=== PATIENT | male | born 1990 | race Caucasian/White ===

== ENCOUNTER 2022-09-06 21:27 | Emergency (ER) | payer MEDICAID, SELFPAY ==
[2022-09-06 22:09] VITALS: BP 106/88; PULSE 88; RESP 16; TEMP 37.5; O2SAT 100; BMI 21.6
--- NOTE | 2022-09-06 22:33 | XR_ITS ---
[address] [address] Patient Name: TC TRUJILLO MRN: [id number] date: 1990 Sex: M Assigned Patient Location: ER Current Patient Location: ER Accession/Order Number: [id number] Exam Date: 09/06/2022 23:15 Report Date: 09/06/2022 23:38 At the request of: GERMANIA BOYKIN Procedure: XR knee INDY 3V EXAM: XR knee INDY 3V HISTORY: Chronic bilateral knee pain. No injury. COMPARISON: None. TECHNIQUE: AP, oblique and lateral radiographs of both knees. FINDINGS: RIGHT KNEE: No acute osseous, articular or soft tissue abnormality is seen. A 1.5 cm ovoid lucency in the subchondral lateral right femoral condyle favors a geode. Reticular sclerotic densities in the distal femoral metaphysis and proximal tibial metaphysis are nonspecific but appear nonaggressive. Joint spaces are maintained. LEFT KNEE: No acute osseous, articular or soft tissue abnormality is seen. There is a lobular 1.9 cm subchondral lucency in the lateral femoral condyle with mild surrounding sclerosis, favoring a geode. Nonspecific reticular sclerotic densities are seen in the distal femoral metaphysis. No additional focal bony lesions are seen. Joint spaces are maintained. IMPRESSION: 1. No acute right knee findings. Chronic changes are described above. MRI could further evaluate. 2. No acute left knee findings. Chronic changes are described above. MRI could further evaluate. Electronically authenticated by: PRIMITIVO FERNANDES Date: 09/06/2022 23:38
[2022-09-06 23:01] LABS: Basophils Absolute Auto 0.1 10^3/uL (0.0-0.1); Basophils Percent Auto 0.6 % (0.2-2.0); Eosinophils Absolute Auto 0.2 10^3/uL (0.0-0.7); Hematocrit 41.5 % (42.0-54.0); Immature Granulocytes Abs Auto 0.02 10^3/uL (0.00-0.03); Immature Granulocytes Pct Auto 0.2 % (0.0-0.5); Lymphocytes Absolute Auto 1.7 10^3/uL (1.2-3.8); Lymphocytes Percent Auto 20.4 % (20.5-60.0); Mean Corpuscular HGB Conc 33.7 g/dL (29.9-35.2); Mean Corpuscular Hemoglobin 28.9 pg (25.9-34.0); Mean Corpuscular Volume 85.6 fL (80.0-94.0); Mean Platelet Volume 8.6 fL (9.5-13.5); Monocytes Absolute Auto 0.7 10^3/uL (0.3-0.8); Monocytes Percent Auto 8.8 % (1.7-12.0); Neutrophils Absolute Auto 5.8 10^3/uL (1.4-6.5); Platelet Count 208 10^3/uL (150-450); Red Blood Count 4.85 10^6/uL (4.70-6.10); Red Cell Distribution Width 13.1 % (11.0-15.0); White Blood Count 8.5 10^3/uL (4.0-11.0)
[2022-09-06 23:17] LABS: Alanine Aminotransferase 31 U/L (16-63); Albumin Globulin Ratio 1.3; Albumin Level 3.9 g/dL (3.4-5.0); Alkaline Phosphatase 102 U/L (46-116); Anion Gap 8.9; Aspartate Amino Transferase 21 U/L (15-37); BUN Creatinine Ratio 12.1; Bilirubin Total 0.4 mg/dL (0.2-1.0); C Reactive Protein 2.3 mg/dL (<=1.0); Calcium 8.6 mg/dL (8.5-10.1); Chloride 103 mmol/L (98-107); Estimated GFR (African America >60 (>=60); Estimated GFR (Non-African Ame >60 (>=60); Globulin 3.1 g/dL; Glucose 101 mg/dL (74-106); Potassium 3.9 mmol/L (3.5-5.1); Sodium 138 mmol/L (136-145)
[2022-09-06 23:21] LABS: Erythrocyte Sedimentation Rate 1 mm/hr (<=15)
[2022-09-06] MEDS: KETOROLAC TROMETHAMINE 30 MG/ML VIAL IVP (23:53)
[2022-09-06] MEDS: METHYLPREDNISOLONE SOD SUCC PF 125 MG/2 ML VIAL IVP (23:54)
[2022-09-06] MEDS: 0.9 % SODIUM CHLORIDE 1,000 ML 999 ML IV (23:54)
--- NOTE | 2022-09-07 00:26 | ED_ITS ---
HPI - General Adult General Chief complaint: Extremity Injury, Lower Stated complaint: LOWER EXTREMITY PAIN Time Seen by Provider: 09/06/22 21:49 Source: patient Mode of arrival: walk-in History of Present Illness HPI narrative: patient developed bilateral knee pain this morning and the right knee has become slightly swollen. he denied any injury. he also complained of feeling achy and noted some blood in his urine one day ago - subsequent urinations were normal. His prior medical history is notable for septic emboli and strep meningitis back in 2017 that caused him to have fevers, achiness and headache with vomiting. He used to use drugs IV. Theyn were uncertain whether the infection was due to dental etiology or from IVDU but I did not see anywhere that he had definitive determination of etiology. Related Data Previous Rx's Medication Instructions Recorded nabumetone 750 mg tablet 750 mg PO BID PRN pain #14 tabs 09/07/22 Allergies Allergy/AdvReac Type Severity Reaction Status Date / Time vancomycin AdvReac Severe Verified 09/06/22 22:18 PFSH PFS Social History Smoking status: Current every day smoker Exam Narrative Exam Narrative: Nurses notes and vital signs reviewed and patient is not hypoxic. afebrile General: Well-appearing and in no apparent distress. Skin: Warm, dry, no pallor noted. No rash. Head: Normocephalic, atraumatic. Neck: moves his head well and without sign of meningismus. Eye: Pupils are equal, round and EOMI. No scleral icterus. Ears, Nose, Mouth, and Throat: Oral mucosa is moist Cardiovascular: Regular Rate and Rhythm without murmur, gallop or rub. Respiratory: No accessory muscle use or respiratory distress. Lungs are clear to auscultation, no wheezing, rales or rhonchi Back: No CVA tenderness Musculoskeletal: slight swelling of the right knee with tenderness to both knees on palpation and with active and passive range of motion. He has popliteal and calf tenderness without any associated erythema or swelling of the lower extremity. On the right knee. both lower extremities with normal ROM. no signs of cellulitis. GI: Abdomen is soft, non-distended. Normal bowel sounds. No masses appreciated. No tenderness to palpation. No rebound, guarding, or rigidity noted. Neurological: A&O x4. No cranial nerve dysfunction observed. No truncal ataxia. Moves all extremities. Sensation intact. Psychiatric: Cooperative and interactive. Normal mood and affect. Constitutional Vital Signs - 24 hr 09/06/22 22:09 Temperature 99.5 F Pulse Rate [Monitor Left] 88 Respiratory Rate 16 Blood Pressure [Left Arm] 106/88 H Pulse Oximetry 100 Oxygen Delivery Method Room Air Course Vital Signs Vital signs: Vital Signs Temperature 99.5 F 09/06/22 22:09 Pulse Rate 88 09/06/22 22:09 Respiratory Rate 16 09/06/22 22:09 Blood Pressure 106/88 H 09/06/22 22:09 Pulse Oximetry 100 09/06/22 22:09 Oxygen Delivery Method Room Air 09/06/22 22:09 Temperature 99.5 F 09/06/22 22:09 Pulse Rate 88 09/06/22 22:09 Respiratory Rate 16 09/06/22 22:09 Blood Pressure 106/88 H 09/06/22 22:09 Pulse Oximetry 100 09/06/22 22:09 Oxygen Delivery Method Room Air 09/06/22 22:09 Medical Decision Making MDM Narrative Medical decision making narrative: I reviewed the patient's prior medical records - see below. on this emergency department visit the patient's CBC is unremarkable. His slight elevation of his CRP. Metabolic profile is normal. sedimentation rate is normal.\ No acute abnormalities identified on x-rays of both knees. Results discussed with the patient. I explained that due to his prior history he should have a short threshold to return to the ED. He felt better after ED treatment and was discharged home with prescription for Relafen. Medical Records Medical records reviewed: Yes I reviewed the patient's medical records Medical records narrative: some of this is in the HPI. The patient was seen a few times for fever and achiness for subsequently developing headache and nausea. CT of the head was then obtained and he was found to have embolization lesions which subsequently were determined to be due to streptococcal infection. He was transferred to tertiary care facility, received IV antibiotics but had a complicated postdischarge course with subsequent development of pulmonary emboli and other infectious etiologies. I do not see anywhere the patient is on have any immunocompromisation. He does have a history of diabetes substance abuse. It was thought that the etiology of the meningismus may have been secondary to dental issue although nothing definitive was determined. Lab Data Lab results reviewed: Yes I reviewed the patient's lab results Labs: Lab Results 09/06/22 Range/Units 22:54 WBC 8.5 (4.0-11.0) 10^3/uL RBC 4.85 (4.70-6.10) 10^6/uL Hgb 14.0 (14.0-18.0) g/dL Hct 41.5 L (42.0-54.0) % MCV 85.6 (80.0-94.0) fL MCH 28.9 (25.9-34.0) pg MCHC 33.7 (29.9-35.2) g/dL RDW 13.1 (11.0-15.0) % Plt Count 208 (150-450) 10^3/uL MPV 8.6 L (9.5-13.5) fL Neut % (Auto) 68.0 (43.0-75.0) % Lymph % (Auto) 20.4 L (20.5-60.0) % [place] % (Auto) 8.8 (1.7-12.0) % Eos % (Auto) 2.0 (0.9-7.0) % Baso % (Auto) 0.6 (0.2-2.0) % Neut # (Auto) 5.8 (1.4-6.5) 10^3/uL Lymph # (Auto) 1.7 (1.2-3.8) 10^3/uL [place] # (Auto) 0.7 (0.3-0.8) 10^3/uL Eos # (Auto) 0.2 (0.0-0.7) 10^3/uL Baso # (Auto) 0.1 (0.0-0.1) 10^3/uL Abs Immat Gran (auto) 0.02 (0.00-0.03) 10^3/uL Imm/Tot Granulo (auto) 0.2 (0.0-0.5) % ESR 1 (<=15) mm/hr Sodium 138 (136-145) mmol/L Potassium 3.9 (3.5-5.1) mmol/L Chloride 103 (98-107) mmol/L Carbon Dioxide 30.0 (21.0-32.0) mmol/L Anion Gap 8.9 BUN 15.0 (7.0-18.0) mg/dL Creatinine 1.24 (0.70-1.30) mg/dL Est GFR ( Amer) >60 (>=60) Est GFR (Non-Af Amer) >60 (>=60) BUN/Creatinine Ratio 12.1 Glucose 101 (74-106) mg/dL Calcium 8.6 (8.5-10.1) mg/dL Total Bilirubin 0.4 (0.2-1.0) mg/dL AST 21 (15-37) U/L ALT 31 (16-63) U/L Alkaline Phosphatase 102 (46-116) U/L C-Reactive Protein 2.3 H (<=1.0) mg/dL Total Protein 7.0 (6.4-8.2) g/dL Albumin 3.9 (3.4-5.0) g/dL Globulin 3.1 g/dL Albumin/Globulin Ratio 1.3 Imaging Data xr bilat knees: Radiologist's impression: Patient Name: TC TRUJILLO MRN: [facility]:[id number] date: 1990 Sex: M Assigned Patient Location: ER Current Patient Location: Accession/Order Number: [id number] Exam Date: 09/06/2022 23:15 Report Date: 09/06/2022 23:38 At the request of: GERMANIA BOYKIN Procedure: XR knee INDY 3V EXAM: XR knee INDY 3V HISTORY: Chronic bilateral knee pain. No injury. COMPARISON: None. TECHNIQUE: AP, oblique and lateral radiographs of both knees. FINDINGS: RIGHT KNEE: No acute osseous, articular or soft tissue abnormality is seen. A 1.5 cm ovoid lucency in the subchondral lateral right femoral condyle favors a geode. Reticular sclerotic densities in the distal femoral metaphysis and proximal tibial metaphysis are nonspecific but appear nonaggressive. Joint spaces are maintained. LEFT KNEE: No acute osseous, articular or soft tissue abnormality is seen. There is a lobular 1.9 cm subchondral lucency in the lateral femoral condyle with mild surrounding sclerosis, favoring a geode. Nonspecific reticular sclerotic densities are seen in the distal femoral metaphysis. No additional focal bony lesions are seen. Joint spaces are maintained. IMPRESSION: 1. No acute right knee findings. Chronic changes are described above. MRI could further evaluate. 2. No acute left knee findings. Chronic changes are described above. MRI could further evaluate. Electronically authenticated by: PRIMITIVO Matthews: 09/06/2022 23:38 Discharge Plan Discharge Chief Complaint: Extremity Injury, Lower Clinical Impression: Polyarthralgia Patient Disposition: Home, Self-Care Time of Disposition Decision: 00:40 Prescriptions / Home Meds: New nabumetone 750 mg tablet 750 mg PO BID PRN (Reason: pain) Qty: 14 0RF Instructions: Swollen Knee Joint (ED), Arthralgia (ED) Stand Alone Forms: Portal Instructions Referrals: Physician,Non-Staff, MD [Primary Care Provider] - 1 week
== END 2022-09-07 00:52 | disposition home or self-care (01) ==
PROVIDERS: Emergency Provider Emergency Medicine
DX: M25.50 Pain in unspecified joint (principal); F17.210 Nicotine dependence, cigarettes, uncomplicated
CPT/HCPCS: 36415; 73562; 80053; 80307; 85025; 85652; 86140; 96374; 96375; 99284; J2930

== ENCOUNTER 2023-06-06 15:40 | Emergency (ER) | payer OTHER, SELFPAY ==
[2023-06-06 15:48] VITALS: BP 107/72; PULSE 92; TEMP 37.3; O2SAT 99; BMI 21.4
[2023-06-06 16:14] LABS: Influenza Virus A Antigen Negative; Influenza Virus B Antigen Negative; Internal Control Within Normal Limits; SARS-CoV-2 Ag NEGATIVE (NEGATIVE); Strep A Antigen Screen Negative
--- NOTE | 2023-06-06 16:14 | ED_ITS ---
HPI - URI/Sore Throat General Chief Complaint: Upper Respiratory Infection Stated Complaint: Upper Respiratory Infection Time Seen by Provider: 06/06/23 15:53 Source: patient Limitations: no limitations History of Present Illness HPI Narrative: 32-year-old male presents to the emergency department with complaint of sore throat, body aches. Had not been feeling well for about 4-5 days, started feeling better yesterday, but woke up with recurrence of symptoms and came in for further evaluation. + Runny nose, congestion, slight cough, slight pleuritic chest discomfort, slight headache since this morning. Denies ear pain, shortness of breath. Denies back pain, leg pain. Denies cigarette smoking, but states that he does vape. Quality: As above Severity: Moderate Timing: As above, constant Context: Normal setting and activity Modifying factors: None Associated symptoms: As above Related Data Previous Rx's ?Medication ?Instructions ?Recorded amoxicillin 875 mg-potassium 1 tab PO BID 10 days #20 tabs 06/06/23 clavulanate 125 mg tablet Allergies Allergy/AdvReac Type Severity Reaction Status Date / Time vancomycin AdvReac Severe Verified 09/06/22 22:18 Review of Systems ROS Narrative Constitutional: +fatigue. Denies fever, chills HENT: + congestion, rhinorrhea, sore throat. Denies ear pain Eyes: Denies discharge, eye redness Respiratory: + slight cough. Denies shortness of breath Cardiovascular: + slight pleuritic chest discomfort. Denies palpitations PFSH PFSH Social History Smoking status: Current every day smoker Exam Narrative Exam Narrative: Vital signs noted Nurses notes reviewed CONST:? Nontoxic, well appearing, well nourished, in no distress.? HENT: normocephalic, atraumatic.? Normal hearing.? Normal appearing ext ears, canals, TM's.? No nasal discharge.? Moist mucous membranes, + increased oropharyngeal erythema. No edema, exudate.? No trismus, maintaining own secretions. EYES: No injection, discharge NECK: supple, no lymphadenopathy. Able to move head from side to side while looking in ears. Peripheral rigidity. No meningismus CV: normal rate, regular rhythm, no murmur RESP: normal effort, speaking in complete sentences. Lung sounds clear and equal bilat.? No wheezes, rales, rhonchi? NEURO: A&Ox3, steady gait, normal station SKIN: intact, warm, dry, no pallor PSYCHIATRIC: normal mood, affect Constitutional Vital Signs, click to edit/add: Last Vital Signs Temp 99.2 F 06/06/23 16:28 Pulse 92 H 06/06/23 15:48 Resp 18 06/06/23 15:48 BP 107/72 06/06/23 15:48 Pulse Ox 99 06/06/23 15:48 O2 Del Method Room Air 06/06/23 15:48 Course Reevaluation(s) Reevaluation #1: On reevaluation, patient feeling very nauseous right now. Headache better. Will order Zofran and reassess. Time: 17:29 Reevaluation #2: +improved, feeling better. Drinking Gatorade. Discussed with patient results, plan, and disposition. He is agreeable with plan. Time: 18:29 Vital Signs Vital signs: Vital Signs Temperature 99.2 F 06/06/23 15:48 Pulse Rate 92 H 06/06/23 15:48 Respiratory Rate 18 06/06/23 15:48 Blood Pressure 107/72 06/06/23 15:48 Pulse Oximetry 99 06/06/23 15:48 Oxygen Delivery Method Room Air 06/06/23 15:48 Temperature 99.2 F 06/06/23 16:28 Pulse Rate 92 H 06/06/23 15:48 Respiratory Rate 18 06/06/23 15:48 Blood Pressure 107/72 06/06/23 15:48 Pulse Oximetry 99 06/06/23 15:48 Oxygen Delivery Method Room Air 06/06/23 15:48 MDM - URI/Sore Throat MDM Narrative Medical decision making narrative: This is a pleasant 32-year-old male presents to the emergency department with several day history of sore throat, body aches, cough, general malaise. States history of brain surgery in the past that from strep infection. Denies neck stiffness, back pain, leg pain, stiff neck. On arrival, he febrile, vital signs are stable. On exam, nontoxic, somewhat ill-appearing in no distress. There is increased posterior oropharyngeal erythema. Ears are clear. No nuchal rigidity. No tenderness meningismus. He is alert and oriented x 3. No evidence of confusion. Heart regular rate and rhythm. Lung sounds clear and equal bilaterally. COVID, influenza, strep screens were all negative. Symptoms treated with improvement during ED course consisting of Motrin, Tylenol and Zofran. Upper respiratory infection favored based on history and physical exam COVID, influenza, RSV less likely based on screening Strep pharyngitis less likely based on screening Pneumonia less likely based on patient not being hypoxic, not demonstrating adventitious lung sounds, and being afebrile. Baterial Meningitis less likely based on patient not having headache, being afebrile, no meningismus, no confusion displayed. He has had signs and symptoms for greater than 5 days. Disposition ? The patient was discharged. Plan: Patient will be discharged to home. Condition at time of disposition: stable and improved Patient on Augmentin due to infection history. Prior chart reviewed (ER 09/10/19). Patient with, History of prior brain lesion infection thought to be due to strep. Advised to follow up with primary provider. Advised to return for any worsening and/or development of new, concerning signs or symptoms PLEASE NOTE: Portions of the medical record may have been produced using electronic radiology transcriptionist and may contain errors with respect to translation of words which may not have been identified prior to finalization of the chart. Lab Data Labs: Lab Results 06/06/23 Range/Units 15:51 Influenza Type A Ag Negative Influenza Type B Ag Negative SARS-CoV-2 Ag (CV2AG) Negative (NEGATIVE) Streptococcus Screen Negative Discharge Plan Discharge Stand Alone Forms: Portal Instructions Chief Complaint: Upper Respiratory Infection Clinical Impression: Body aches Upper respiratory infection Qualifiers: URI type: unspecified URI Qualified Code(s): J06.9 - Acute upper respiratory infection, unspecified Pharyngitis Qualifiers: Pharyngitis/tonsillitis etiology: unspecified etiology Qualified Code(s): J02.9 - Acute pharyngitis, unspecified Patient Disposition: Home, Self-Care Time of Disposition Decision: 18:27 Condition: Good Mode of Transportation: Private Vehicle Prescriptions / Home Meds: New amoxicillin-pot clavulanate 875-125 mg tablet 1 tab PO BID 10 Days Qty: 20 0RF Print Language: Moroccan Instructions: Pharyngitis (ED), Upper Respiratory Infection (ED) Referrals: Negrito Luu MD [Physician] - 1 week Discharge Date/Time: 06/06/23 18:38
[2023-06-06 16:27] VITALS: TEMP 37.3
[2023-06-06] MEDS: IBUPROFEN 600 MG TABLET PO (16:27)
[2023-06-06 16:28] VITALS: TEMP 37.3
[2023-06-06] MEDS: ACETAMINOPHEN 325 MG TABLET 975 MG PO (16:28)
[2023-06-06] MEDS: ONDANSETRON 4 MG RAPDIS TABLET SL (17:40)
== END 2023-06-06 18:38 | disposition home or self-care (01) ==
PROVIDERS: Emergency Provider Emergency Medicine
DX: J02.9 Acute pharyngitis, unspecified (principal); J06.9 Acute upper respiratory infection, unspecified; F17.290 Nicotine dependence, other tobacco product, uncomplicated; F17.210 Nicotine dependence, cigarettes, uncomplicated; Z20.822 Contact with and (suspected) exposure to COVID-19
CPT/HCPCS: 87070; 87804; 87811; 87880; 99285

== ENCOUNTER 2023-06-16 07:07 | Emergency (ER) | payer OTHER, SELFPAY ==
[2023-06-16 07:11] VITALS: BP 118/89; PULSE 114; TEMP 36.6; O2SAT 95; BMI 21.4
--- NOTE | 2023-06-16 07:35 | CT_ITS ---
The [address] [address] Patient Name: TC TRUJILLO MRN: [facility]:[id number] date: 1990 Sex: M Assigned Patient Location: ER Current Patient Location: ER Accession/Order Number: [id number] Exam Date: 06/16/2023 08:12 Report Date: 06/16/2023 08:41 At the request of: SAMY FRENCH Procedure: CT head/brain wo con EXAM: CT head/brain wo con HISTORY: TIERNEY COMPARISON: Comparison made to head CT dated 09/10/[address] head dated 01/08/2017. TECHNIQUE: Contiguous transaxial images were obtained from skull base to vertex without administration of intravenous contrast. Dose reduction: mA and/or kV are were adjusted by automated exposure control software based upon patients height and weight. FINDINGS: There is no focal scalp soft tissue swelling or acute calvarial fracture. The visualized globes and orbits are grossly normal. There is mild paranasal sinus and nasal mucosal thickening. There are no paranasal sinus air-fluid levels. Bilateral mastoid air cells are clear. There are postsurgical findings of prior left craniotomy. There is a prominent sulcus versus small focus of encephalomalacia subjacent to the left-sided craniotomy. The ventricles and sulci are normal and symmetric bilaterally. There are tiny hypoattenuating foci at the caudal basal ganglia, likely tiny old lacunar infarcts, prominent perivascular spaces, or choroidal fissure cysts. There is a questionable subtle small hypoattenuating focus within the left frontal subcortical white matter. However, the multiple small scattered hypoattenuating rim-enhancing lesions seen on CT of 01/08/2017 are not currently visualized. There is no intraparenchymal hemorrhage, extraaxial fluid collection, or acute large territory ischemia by noncontrast CT. CT/CT head/brain wo con IMPRESSION: 1. No acute intracranial hemorrhage or acute large territory ischemia by noncontrast CT. 2. Tiny hypoattenuating foci at the caudal basal ganglia, likely tiny old lacunar infarcts, prominent perivascular spaces, or choroidal fissure cyst. 3. Questionable subtle small hypoattenuating focus within the left frontal subcortical white matter, nonspecific. The multiple small scattered rim-enhancing hypoattenuating lesions seen on prior CT of 01/08/2017 are not currently visualized. Correlate with patient's prior history and results from previous workup. Given patient's current clinical symptoms and prior history, consider follow-up brain MRI with and without intravenous gadolinium contrast. 4. Status post left craniotomy. If the patient has a focal neurologic deficit or there is clinical suspicion for acute cerebrovascular accident, brain MRI would be recommended for further evaluation. Electronically authenticated by: AWILDA RIVAS Date: 06/16/2023 08:41
[2023-06-16 07:44] LABS: Internal Control Within Normal Limits; Strep A Antigen Screen Positive
[2023-06-16 08:00] LABS: Anion Gap 14.5; BUN Creatinine Ratio 10.9; Calcium 9.1 mg/dL (8.5-10.1); Carbon Dioxide 29.1 mmol/L (21.0-32.0); Chloride 102 mmol/L (98-107); Estimated GFR (African America >60 (>=60); Estimated GFR (Non-African Ame >60 (>=60); Glucose 96 mg/dL (74-106); Potassium 4.6 mmol/L (3.5-5.1); Sodium 141 mmol/L (136-145)
[2023-06-16 08:01] LABS: Basophils Absolute Auto 0.1 10^3/uL (0.0-0.1); Basophils Percent Auto 0.6 % (0.2-2.0); Eosinophils Absolute Auto 0.4 10^3/uL (0.0-0.7); Eosinophils Percent Auto 4.2 % (0.9-7.0); Hematocrit 41.1 % (42.0-54.0); Hemoglobin 13.7 g/dL (14.0-18.0); Immature Granulocytes Abs Auto 0.04 10^3/uL (0.00-0.03); Immature Granulocytes Pct Auto 0.4 % (0.0-0.5); Lymphocytes Absolute Auto 1.7 10^3/uL (1.2-3.8); Lymphocytes Percent Auto 16.6 % (20.5-60.0); Mean Corpuscular HGB Conc 33.3 g/dL (29.9-35.2); Mean Corpuscular Volume 83.9 fL (80.0-94.0); Mean Platelet Volume 8.3 fL (9.5-13.5); Monocytes Absolute Auto 0.7 10^3/uL (0.3-0.8); Neutrophils Absolute Auto 7.2 10^3/uL (1.4-6.5); Neutrophils Percent Auto 71.2 % (43.0-75.0); Platelet Count 315 10^3/uL (150-450); Red Cell Distribution Width 12.2 % (11.0-15.0); White Blood Count 10.1 10^3/uL (4.0-11.0)
[2023-06-16 09:41] VITALS: BP 109/83; PULSE 91; O2SAT 100
--- NOTE | 2023-06-16 09:49 | ED_ITS ---
HPI HPI - General Adult General Chief complaint: Headache Stated complaint: headache Time Seen by Provider: 06/16/23 07:15 Source: patient Mode of arrival: walk-in Limitations: no limitations History of Present Illness HPI narrative: 32-year-old male presents for sore throat and headache. He has been sick for the this past week and multiple family members have strep throat. He has had no trauma to his head. Many years ago he had a brain infection and had to have surgery and he grew some strain of strep and he was on IV antibiotics for an extended period of time.He has not had trauma or stiff neck. No cough or chest pain or complaints of shortness of breath. Related Data Previous Rx's ?Medication ?Instructions ?Recorded itsgixcwlj-eghrditrikhbv-sglbumwo 1 cap PO Q6H PRN pain 5 days #20 06/16/23 50 mg-300 mg-40 mg capsule caps (Fioricet) penicillin V potassium 250 mg 250 mg PO QID 10 days #40 tabs 06/16/23 tablet Allergies Allergy/AdvReac Type Severity Reaction Status Date / Time vancomycin AdvReac Severe Verified 06/16/23 07:16 Opioid HPI Opioid Management Most Recent Opioid Data: Last Pain Scale 6 06/16/23 07:55 Review of Systems ROS Narrative A ten point review of systems is negative except as noted above. PFSH PFSH Social History Smoking status: Current every day smoker Exam Narrative Exam Narrative: Nurses note and vital signs reviewed and patient is not hypoxic. General: The patient appears in no apparent distress. Skin: Warm, dry, no pallor noted. There is no rash noted. Head: Normocephalic, atraumatic Eye: Normal conjunctiva, no drainage, EOMI. PERRL Ears, Nose, Mouth, and Throat: oral mucosa is moist. Nares patent. Pharyngeal erythema present. No peritonsillar swelling or uvular deviation present.Neck supple, no nuchal rigidity. Cardiovascular: Regular Rate and Rhythm Respiratory: Patient is in no distress, no accessory muscle use, lungs are clear to auscultation, no wheezing, rales or rhonchi Back: non-tender GI: Soft and nontender Musculoskeletal: The patient has no evidence of calf tenderness, no pitting edema, symmetrical pulses noted bilaterally Neurological: A&O, normal speech Psychiatric: Cooperative Constitutional Vital Signs, click to edit/add: Last Vital Signs Temp 97.8 F 04/12/24 07:11 Pulse 91 H 06/16/23 09:41 Resp 18 06/16/23 09:41 BP 109/83 06/16/23 09:41 Pulse Ox 100 06/16/23 09:41 O2 Del Method Room Air 06/16/23 09:41 Course Vital Signs Vital signs: Vital Signs Temperature 97.8 F 06/16/23 07:11 Pulse Rate 114 H 06/16/23 07:11 Respiratory Rate 18 06/16/23 07:11 Blood Pressure 118/89 06/16/23 07:11 Pulse Oximetry 95 06/16/23 07:11 Oxygen Delivery Method Room Air 06/16/23 07:11 Temperature 97.8 F 06/16/23 07:11 Pulse Rate 91 H 06/16/23 09:41 Respiratory Rate 18 06/16/23 09:41 Blood Pressure 109/83 06/16/23 09:41 Pulse Oximetry 100 06/16/23 09:41 Oxygen Delivery Method Room Air 06/16/23 09:41 Medical Decision Making MDM Narrative Medical decision making narrative: Blood work is essentially normal. He does not have a fever. Strep test is positive and he will be treated for strep throat. CAT scan findings are discussed with the patient and he has a new PCP and will follow-up with the new PCP and possible need for follow-up MRI was discussed with the patient. I do not have any acute clinical suspicion of a stroke or meningitis or intracerebral infection. Treatment diagnosis and follow-up were discussed thoroughly with the patient. Differential Diagnosis Differential Diagnosis: Strep throat, viral pharyngitis Lab Data Lab results reviewed: Yes I reviewed the patient's lab results Labs: Lab Results 06/16/23 06/16/23 Range/Units 07:15 07:45 WBC 10.1 (4.0-11.0) 10^3/uL RBC 4.90 (4.70-6.10) 10^6/uL Hgb 13.7 L (14.0-18.0) g/dL Hct 41.1 L (42.0-54.0) % MCV 83.9 (80.0-94.0) fL MCH 28.0 (25.9-34.0) pg MCHC 33.3 (29.9-35.2) g/dL RDW 12.2 (11.0-15.0) % Plt Count 315 (150-450) 10^3/uL MPV 8.3 L (9.5-13.5) fL Neut % (Auto) 71.2 (43.0-75.0) % Lymph % (Auto) 16.6 L (20.5-60.0) % [place] % (Auto) 7.0 (1.7-12.0) % Eos % (Auto) 4.2 (0.9-7.0) % Baso % (Auto) 0.6 (0.2-2.0) % Neut # (Auto) 7.2 H (1.4-6.5) 10^3/uL Lymph # (Auto) 1.7 (1.2-3.8) 10^3/uL [place] # (Auto) 0.7 (0.3-0.8) 10^3/uL Eos # (Auto) 0.4 (0.0-0.7) 10^3/uL Baso # (Auto) 0.1 (0.0-0.1) 10^3/uL Abs Immat Gran (auto) 0.04 H (0.00-0.03) 10^3/uL Imm/Tot Granulo (auto) 0.4 (0.0-0.5) % Sodium 141 (136-145) mmol/L Potassium 4.6 (3.5-5.1) mmol/L Chloride 102 (98-107) mmol/L Carbon Dioxide 29.1 (21.0-32.0) mmol/L Anion Gap 14.5 BUN 12.0 (7.0-18.0) mg/dL Creatinine 1.10 (0.70-1.30) mg/dL Est GFR ( Amer) >60 (>=60) Est GFR (Non-Af Amer) >60 (>=60) BUN/Creatinine Ratio 10.9 Glucose 96 (74-106) mg/dL Calcium 9.1 (8.5-10.1) mg/dL Streptococcus Screen Positive A Imaging Data CT scan - head: Radiologist's impression: ITS Impressions Head CT 06/16/23 07:35 IMPRESSION: 1. No acute intracranial hemorrhage or acute large territory ischemia by noncontrast CT. 2. Tiny hypoattenuating foci at the caudal basal ganglia, likely tiny old lacunar infarcts, prominent perivascular spaces, or choroidal fissure cyst. 3. Questionable subtle small hypoattenuating focus within the left frontal subcortical white matter, nonspecific. The multiple small scattered rim-enhancing hypoattenuating lesions seen on prior CT of 01/08/2017 are not currently visualized. Correlate with patient's prior history and results from previous workup. Given patient's current clinical symptoms and prior history, consider follow-up brain MRI with and without intravenous gadolinium contrast. 4. Status post left craniotomy. If the patient has a focal neurologic deficit or there is clinical suspicion for acute cerebrovascular accident, brain MRI would be recommended for further evaluation. Electronically authenticated by: AWILDA RIVAS Date: 06/16/2023 08:41 Discharge Plan Discharge Stand Alone Forms: Portal Instructions Chief Complaint: Headache Clinical Impression: Headache, Strep throat Patient Disposition: Home, Self-Care Time of Disposition Decision: 09:17 Condition: Good Mode of Transportation: Private Vehicle Prescriptions / Home Meds: New penicillin V potassium 250 mg tablet 250 mg PO QID 10 Days Qty: 40 0RF mbotdnxjiy-wabyiyunhppfa-koki [Fioricet] 50-300-40 mg capsule 1 cap PO Q6H PRN (Reason: pain) 5 Days Qty: 20 0RF Print Language: Latvian Instructions: Strep Throat (ED), Acute Headache (ED) Additional Instructions: Follow up with your PCP for possible outpatient MRI. Referrals: Physician,Non-Staff, [Primary Care Provider] - 1 week Discharge Date/Time: 06/16/23 09:43
== END 2023-06-16 09:43 | disposition home or self-care (01) ==
PROVIDERS: Emergency Provider Emergency Medicine
DX: J02.0 Streptococcal pharyngitis (principal); R51.9 Headache, unspecified; F17.210 Nicotine dependence, cigarettes, uncomplicated
CPT/HCPCS: 36415; 70450; 80048; 85025; 87880; 99284

== ENCOUNTER 2023-07-17 20:45 | Emergency (ER) | payer OTHER, SELFPAY ==
[2023-07-17 20:53] VITALS: BP 148/101; PULSE 74; TEMP 36.7; O2SAT 98; BMI 21.7
--- NOTE | 2023-07-17 21:00 | XR_ITS ---
The [address] [address] Patient Name: TC TRUJILLO MRN: [id number] date: 1990 Sex: M Assigned Patient Location: ER Current Patient Location: ER Accession/Order Number: [id number] Exam Date: 07/17/2023 21:10 Report Date: 07/17/2023 21:31 At the request of: GINETTE MOONEY Procedure: XR hand LT min 3V EXAM: XR hand LT min 3V HISTORY: injury COMPARISON: None. TECHNIQUE: 3 views left hand FINDINGS: There is no fracture or malalignment. The fingers are held in flexion. There is dorsal soft tissue swelling of the hand. XR/XR hand LT min 3V IMPRESSION: Dorsal soft tissue swelling. Electronically authenticated by: RYNE KNOWLES Date: 07/17/2023 21:31
--- NOTE | 2023-07-17 21:00 | ED_ITS ---
HPI HPI - Extremity Injury (Upper) General Chief Complaint: Extremity Injury, Upper Stated Complaint: Upper Injury Time Seen by Provider: 07/17/23 20:54 Source: patient Mode of arrival: walk-in Limitations: no limitations History of Present Illness HPI narrative: patient sustained crush injury to his left hand at work yesterday.. Now presents complaining of pain and swelling of his hand. Does not want this to be a worker comp visit denies weakness of his hand. Hand is not numb. Does hurt when he moves his hand to in a communicative gesture Related Data Allergies Allergy/AdvReac Type Severity Reaction Status Date / Time vancomycin AdvReac Severe Verified 07/17/23 20:53 Opioid HPI Opioid Management Most Recent Pain and Opioid Data: Last Pain Scale 8 07/17/23 21:03 Review of Systems ROS Status of ROS 10 or more systems reviewed and unremark able except as noted in history and below [facility] Social History Smoking status: Current every day smoker Exam Constitutional Vital Signs, click to edit/add: Last Vital Signs Temp 98.1 F 07/17/23 20:53 Pulse 117 H 07/17/23 21:23 Resp 18 07/17/23 21:23 BP 121/76 07/17/23 21:23 Pulse Ox 97 07/17/23 21:23 O2 Del Method Room Air 07/17/23 20:53 Common normals: no apparent distress, average body habitus, oriented x3, no limitations, healthy appearing, alert and well nourished [facility] Common normals: normocephalic and head/scalp atraumatic Respiratory Common normals: normal respiratory effort, no retractions, no use of accessory muscles and clear to auscultation bilaterally Cardio Common normals: regular rate, regular rhythm, S1 normal heart sound and S2 normal heart sound Extremity Other: gen swelling of the dorsum of the right and and fingers. sensation intact. very limited rOM due to pain. normal color Neuro Common normals: oriented x3, CN's II-XII intact bilaterally, moves all extremities, no focal motor deficits and no sensory deficits noted Psych Appearance: grossly normal Course Vital Signs Vital signs: Vital Signs Temperature 98.1 F 07/17/23 20:53 Pulse Rate 74 07/17/23 20:53 Respiratory Rate 18 07/17/23 20:53 Blood Pressure 148/101 H 07/17/23 20:53 Pulse Oximetry 98 07/17/23 20:53 Oxygen Delivery Method Room Air 07/17/23 20:53 Temperature 98.1 F 07/17/23 20:53 Pulse Rate 117 H 07/17/23 21:23 Respiratory Rate 18 07/17/23 21:23 Blood Pressure 121/76 07/17/23 21:23 Pulse Oximetry 97 07/17/23 21:23 Oxygen Delivery Method Room Air 07/17/23 20:53 MDM - Extremity Injury (Upper) MDM Narrative Medical decision making narrative: patient sustained crush injury at work yesterday. mod swelling dorsum left hand and fingers. xray neg. placed in splint per nursing and discharged home Imaging Data Chest x-ray: Radiologist's impression: ITS Impressions Hand X-Ray 07/17/23 21:00 IMPRESSION: Dorsal soft tissue swelling. Electronically authenticated by: RYNE KNOWLES Date: 07/17/2023 21:31 Wrist X-Ray 07/17/23 21:00 IMPRESSION: Negative. Electronically authenticated by: YUNIOR MARIE Date: 07/17/2023 22:09 Discharge Plan Discharge Stand Alone Forms: Portal Instructions Chief Complaint: Extremity Injury, Upper Clinical Impression: Contusion of hand, left Patient Disposition: Home, Self-Care Print Language: Maori Instructions: Contusion in Adults (ED) Additional Instructions: use advil or similar for pain and follow up with your doctor this week Referrals: MOI PACHECO [Primary Care Provider] - 1 week
--- NOTE | 2023-07-17 21:00 | XR_ITS ---
The [address] [address] Patient Name: TC TRUJILLO MRN: [id number] date: 1990 Sex: M Assigned Patient Location: ER Current Patient Location: ED.MAIN Accession/Order Number: [id number] Exam Date: 07/17/2023 21:10 Report Date: 07/17/2023 22:09 At the request of: GINETTE MOONEY Procedure: XR wrist LT min 3V EXAM: XR wrist LT min 3V HISTORY: The patient is a 32-year-old male, injury COMPARISON: None. FINDINGS: The left wrist is radiographically negative with no evidence of fracture, dislocation, joint space narrowing, osteophytes, or other osseous or articular abnormalities. XR/XR wrist LT min 3V IMPRESSION: Negative. Electronically authenticated by: YUNIOR MARIE Date: 07/17/2023 22:09
[2023-07-17 21:23] VITALS: BP 121/76; PULSE 117; O2SAT 97
[2023-07-17 22:30] VITALS: BP 132/88; PULSE 87; O2SAT 98
== END 2023-07-17 22:30 | disposition home or self-care (01) ==
PROVIDERS: Emergency Provider Internal Medicine; PCP Nurse Practitioner Family
DX: S60.222A Contusion of left hand, initial encounter (principal); X58.XXXA Exposure to other specified factors, initial encounter; F17.210 Nicotine dependence, cigarettes, uncomplicated
CPT/HCPCS: 73110; 73130; 99283

== ENCOUNTER 2023-07-28 11:24 | Emergency (ER) | payer OTHER, SELFPAY ==
[2023-07-28 11:30] VITALS: BP 130/88; PULSE 99; TEMP 36.8; O2SAT 99; BMI 22.0
[2023-07-28 11:35] VITALS: PULSE 75
[2023-07-28 11:36] VITALS: PULSE 72
--- OUTSIDE RECORDS SUMMARY | 2023-07-28 11:42 | XMS_ITS | CCD ---
Author Organization [facility] Care Team Providers Care Structural Welder Name Role Phone PHYSICIAN, DEFAULT Unavailable Unavailable PHYSICIAN, DEFAULT Unavailable Unavailable PHYSICIAN, DEFAULT Unavailable Unavailable PHYSICIAN, DEFAULT Unavailable Unavailable PAVLOCK, MAX Primary Care Unavailable LEXI CAR Attending Unavailable LEXI CAR Consulting Unavailable LEXI CAR Admitting Unavailable PAVLOCK, NADIYA Primary Care Unavailable DAVID STANFORD Attending UnavailDAVID Dumas Consulting UnavailDAVID Dumas Admitting UnavailJARAD Yanez Consulting Unavailable QI BONDS Consulting Unavailable DIANE KISER Referring Unavailable DIANE KISER Attending Unavailable DIANE KISER Admitting Unavailable JADEN LING Attending Unavailable Seble Freed Unavailable Sylvie Morales Unavailable Allergies Allergy Classification Reported Allergen(s) Allergy Type Date of Onset Reaction(s) Facility (1 source) bee venom Drug allergy (disorder) 10-29-2013 [facility] Repository (3 sources) Vancomycin; Translations: [VANCOMYCIN] Drug Allergy 03-22-2018 [facility] Repository (1 source) WASP VENOM PROTEIN; Translations: [WASP VENOM PROTEIN] [facility] ([facility] source) HYMENOPTERA ALLERGENIC EXTRACT; Translations: [HYMENOPTERA ALLERGENIC EXTRACT] Drug Allergy 01-09-2017 [facility] Repository (2 sources) Vancomycin Drug Allergy [employer] Other Medications Current Medications Medication Drug Class(es) Dates Sig (Normalized) Sig (Original) amoxicillin 875 mg / clavulanate 125 mg oral tablet (1 source) Penicillin-class Antibacterial Start: 12-24-2022 take 1 tablet by mouth every twelve hours Amoxicillin-Pot Clavulanate 875-125 MG 1 tablet Orally every 12 hrs for 10 day(s) Dec, Active dextromethorphan hydrobromide 30 mg / pyrilamine maleate 30 mg oral tablet (1 source) Uncompetitive T-onjgsh-F-aspartate Receptor Antagonist, Sigma-1 Agonist Start: 12-24-2022 Davin DMT 30-30 MG 1 tablet Orally every 6-8 hours for 10 days Dec, Active fluticasone propionate 0.05 mg/actuat metered dose nasal spray (3 sources) Corticosteroid Start: 04-26-2018 take 1 spray(s) nasal route once daily Fluticasone Propionate 50 MCG/ACT 1 spray in each nostril Nasally Once a day for 14 day(s) Dec, Active Completed/Discontinued Medications Medication Drug Class(es) Dates Sig (Normalized) Sig (Original) Brompheniramine / Pseudoephedrine (2 sources) alpha-Adrenergic Agonist Start: 04-26-2018 take 5 mL by mouth every six hours as needed Bromfed DM 30-2-10 MG/5ML 5 ml as needed Orally every 6 hrs Apr, Not-Taking buprenorphine 8 mg / naloxone 2 mg sublingual film (2 sources) Partial Opioid Agonist, Opioid Antagonist Suboxone 8-2 MG Sublingual for 29 Not-Taking dextromethorphan hydrobromide 15 mg / guaiFENesin 400 mg / pseudoephedrine hydrochloride 60 mg oral tablet (2 sources) alpha-Adrenergic Agonist, Uncompetitive L-xxkzct-H-aspartat e Receptor Antagonist, Sigma-1 Agonist Start: 07-14-2022 take 4 tablets by mouth every twenty-four hours as needed Capmist DM 60-15-400 MG as needed Orally every 4-6 hours as needed, max 4 tablets in 24 hours for 5 days July, Not-Taking ibuprofen 800 mg oral tablet (2 sources) Nonsteroidal Anti-inflammatory Drug Ibuprofen 800 MG Oral for 30 Not-Taking Ibuprofen 800 MG Oral for 30 Not-Taking ondansetron 4 mg oral tablet (2 sources) Serotonin-3 Receptor Antagonist Start: 04-26-2018 take 1 tablet by mouth every eight hours as needed Zofran ODT 4 MG 1 tablet on the tongue and allow to dissolve Orally every 8 hrs as needed for 4 days Apr, Not-Taking Problems Active Problems Problem Classification Problem Date Documented Da te Episodic/Chronic Influenza (2 sources) Influenza due to other identified influenza virus with other respiratory manifestations; Translations: [Influenza due to other identified influenza virus with other respiratory manifestations] Onset: 02-27-2022 Episodic Other connective tissue disease (3 sources) Other specified soft tissue disorders; Translations: [OTHER SPEC SOFT TISSUE DISORDERS] Onset: 05-03-2020 Episodic Other connective tissue disease (1 source) Pain in right hand; Translations: [PAIN IN RIGHT HAND] Onset: 05-05-2020 Episodic Other connective tissue disease (1 source) Pain in left hand; Translations: [PAIN IN LEFT HAND] Onset: 05-05-2020 Episodic Other upper respiratory infections (3 sources) Acute upper respiratory infection, unspecified; Translations: [Acute pharyngitis, unspecified] Episodic Residual codes; unclassified (1 source) Edema, unspecified; Translations: [EDEMA UNSPECIFIED] Onset: 05-05-2020 Episodic Substance-related disorders (1 source) Nicotine dependence, cigarettes, uncomplicated; Translations: [NICOTINE DEPEND CIGARETTES UNCOMP] Onset: 05-05-2020 Chronic Unclassified (1 source) Myalgia, unspecified site; Translations: [MYALGIA UNSPECIFIED SITE] Onset: 09-13-2019 Past or Other Problems Problem Classification Problem Date Documented Da te Episodic/Chronic Headache; including migraine (4 sources) Headache; Translations: [HEADACHE] Onset: 09-10-2019 Episodic Unclassified (2 sources) Contact with and (suspected) exposure to covid-19 Z20.822 Results Test Name Value Interpretation Reference Range Facility COVID + FLU Quick Testingon 12-24-2022 SARS-CoV-2 (COVID-19) RNA ANALILIA+probe Ql (Unsp spec) Negative [facility] Other COVID + FLU Quick Testing Negative [facility] Other COVID + FLU Quick Testingon 07-14-2022 SARS-CoV-2 (COVID-19) RNA ANALILIA+probe Ql (Unsp spec) negtive [facility] Other COVID + FLU Quick Testing Negative [facility] Other Quick Strepon 07-14-2022 S. pyogenes Org specific cx Ql (Throat) neative [place] [employer] Other Quick Strep [facility] Other EDNURSon 02-27-2022 EDNURS Pt c/o vomiting, headache, cough, sore throat x3 days. 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 Normal [facility] EDPROVon 02-27-2022 EDPROV HPI Chief Complaint Patient presents with ??? Vomiting ??? URI Fever, bartolome aches, anorexia for a week. No abd pain, mild headache, no cp, no skin rash Umer Coma Scale Score: 15 Patient History History reviewed. No pertinent past medical history. History reviewed. No pertinent surgical history. No family history on file. Social History Tobacco Use ??? Smoking status: Every Day Types: Cigarettes ??? Smokeless tobacco: Not on file Substance Use Topics ??? Alcohol use: Not Currently ??? Drug use: Not Currently Review of Systems Review of Systems Constitutional: Positive for chills, diaphoresis, fatigue and fever. HENT: Positive for congestion. Eyes: Negative. Respiratory: Positive for cough. Cardiovascular: Negative. Gastrointestinal: Negative. Endocrine: Negative. Genitourinary: Negative. Musculoskeletal: Negative. Skin: Negative. Allergic/Immunologic: Negative. Neurological: Negative. Hematological: Negative. Psychiatric/Behaviora l: Negative. Physical Exam ED Triage Vitals [02/27/22 0844] Temp Heart Rate Resp BP 37.1 ???C (98.8 ???F) 91 18 153/82 SpO2 Temp src Heart Rate Source Patient Position 100 % -- -- -- BP Location FiO2 (%) -- -- Physical Exam Constitutional: Appearance: Normal appearance. HENT: Head: Normocephalic and atraumatic. Nose: Nose normal. Eyes: Pupils: Pupils are equal, round, and reactive to light. Cardiovascular: Rate and Rhythm: Normal rate and regular rhythm. Pulses: Normal pulses. Heart sounds: Normal heart sounds. Pulmonary: Effort: Pulmonary effort is normal. Breath sounds: Normal breath sounds. Abdominal: General: Abdomen is flat. Palpations: Abdomen is soft. Musculoskeletal: General: Normal range of motion. Cervical back: Normal range of motion. Skin: General: Skin is warm. Neurological: General: No focal deficit present. Mental Status: He is alert and oriented to person, place, and time. Procedures ED Course & MDM Diagnoses as of 03/05/22 0812 Influenza A MDM Attestion Jaden Ling MD 03/05/22 0812 Normal [facility] BNPon 05-03-2020 Natriuretic peptide B (Bld) [Mass/Vol] 26.0 pg/mL Normal <=450.0 [facility] Comment on above: Performed By: #### P TT, PT #### [facility] [address] [place] [address] Lelia Nereyda CBC AUTO DIFFon 05-03-2020 Basophils (Bld) [#/Vol] 0.0 103/ul Normal 0.0-0.1 [facility] Comment on above: Performed By: #### C BC #### [facility] [address] [place], [place] [id number] Lelia Nereyda Basophils/100 WBC (Bld) 0.6 % Normal 0.2-2.0 [facility] Comment on above: Performed By: #### C BC #### [facility] [address] [place] [address] Lelia Nereyda Eosinophils (Bld) [#/Vol] 0.5 103/ul Normal 0.0-0.7 [facility] Comment on above: Performed By: #### C BC #### [facility] [address] [place] [address] Lelia Nereyda Eosinophils/100 WBC (Bld) 7.9 % Critically high 0.9-7.0 [facility] Comment on above: Performed By: #### C BC #### [facility] [address] [place] [address] Lelia Nereyda Erythrocyte distribution width (RBC) [Ratio] 12.9 % Normal 11.0-15.0 [facility] Comment on above: Performed By: #### C BC #### [facility] [address] [place] [address] Lelia Nereyda Hematocrit (Bld) [Volume fraction] 44.1 % Normal 42.0-54.0 [facility] Comment on above: Performed By: #### C BC #### [facility] [address] [place], [place] [address] Lelia Nereyda Hemoglobin (Bld) [Mass/Vol] 14.5 g/dL Normal 14.0-18.0 [facility] Comment on above: Performed By: #### C BC #### [facility] [address] [place] [id number] Lelia Nereyda IG # 0.01 10e3/ul Normal 0.00-0.03 [facility] Comment on above: Performed By: #### C BC #### [facility] [address] [place], [place] [phone] Lelia Nereyda IG % 0.1 % Normal 0.0-0.5 [facility] Comment on above: Performed By: #### C BC #### [facility] [address] [place] [address] Lelia Nereyda Lymphocytes (Bld) [#/Vol] 1.7 103/ul Normal 1.2-3.8 [facility] Comment on above: Performed By: #### C BC #### [facility] [address] [place], [place] [phone] Lelia Nereyda Lymphocytes/100 WBC (Bld) 24.1 % Normal 20.5-60.0 [facility] Comment on above: Performed By: #### C BC #### [facility] [address] [place], [place] [phone] Lelia Nereyda MANUAL DIFF REQ NO Normal [facility] Comment on above: Performed By: #### C BC #### [facility] [address] [place], [place] [phone] Lelia Nereyda MCH (RBC) [Entitic mass] 28.6 pg Normal 25.9-34.0 [facility] Comment on above: Performed By: #### C BC #### [facility] [address] [place], [place] [phone] Lelia Nereyda MCHC (RBC) [Mass/Vol] 32.9 g/dL Normal 29.9-35.2 [facility] Comment on above: Performed By: #### C BC #### [facility] [address] [place], [place] [address] Lelia Nereyda MCV (RBC) [Entitic vol] 87.0 fL Normal 80.0-94.0 [facility] Comment on above: Performed By: #### C BC #### [facility] [address] [place], [place] [address] Lelia Nereyda Monocytes (Bld) [#/Vol] 0.7 103/ul Normal 0.3-0.8 [facility] Comment on above: Performed By: #### C BC #### [facility] [address] [place], [place] [address] Lelia Nereyda Monocytes/100 WBC (Bld) 10.4 % Normal 1.7-12.0 [facility] Comment on above: Performed By: #### C BC #### [facility] [address] [place], [place] [phone] Lelia Nereyda Neutrophils (Bld) [#/Vol] 3.9 103/ul Normal 1.4-6.5 [facility] Comment on above: Performed By: #### C BC #### [facility] [address] [place] [address] Lelia Nereyda Neutrophils/100 WBC (Bld) 56.9 % Normal 43.0-75.0 [facility] Comment on above: Performed By: #### C BC #### [facility] [address] [place] [address] Lelia Nereyda Platelet mean volume (Bld) [Entitic vol] 8.8 fL Critically low 9.5-13.5 [facility] Comment on above: Performed By: #### C BC #### [facility] [address] [place] [address] Lelia Nereyda Platelets (Bld) [#/Vol] 280 103/ul Normal 150-450 [facility] Comment on above: Performed By: #### C BC #### [facility] [address] [place] [address] Lelia Nereyda RBC (Bld) [#/Vol] 5.07 106/ul Normal 4.70-6.10 [facility] Comment on above: Performed By: #### C BC #### [facility] [address] [place] [address] Lelia Nereyda WBC (Bld) [#/Vol] 6.8 103/ul Normal 4.0-11.0 [facility] Comment on above: Performed By: #### C BC #### [facility] [address] [place], [place] [phone] Lelia Nereyda ER URINE PROFILEon 1 Bilirubin [Mass/Vol] Negative Normal NEGATIVE [facility] Comment on above: Performed By: #### E RUR #### [facility] [address] [place] [address] Lelia Nereyda BLOOD Negative Normal NEGATIVE [facility] Comment on above: Performed By: #### E RUR #### [facility] [address] [place] [address] Lelia Nereyda Clarity (U) CLEAR Normal CLEAR [facility] Comment on above: Performed By: #### E RUR #### [facility] [address] [place] [address] Lelia Nereyda Color (U) YELLOW Normal YELLOW [facility] Comment on above: Performed By: #### E RUR #### [facility] [address] [place] [address] Lelia Nereyda ERUAHD A micrscopic examination will be performed if indicated. Normal [facility] Comment on above: Performed By: #### E RUR #### [facility] [address] [place] [address] Lelia Nereyda Glucose [Mass/Vol] Negative Normal NEGATIVE [facility] Comment on above: Performed By: #### E RUR #### [facility] [address] [place] [address] Lelia Nereyda Ketones Ql (U) Negative Normal NEGATIVE [facility] Comment on above: Performed By: #### E RUR #### [facility] [address] [place] [address] Lelia Nereyda Nitrite Ql (U) Negative Normal NEGATIVE [facility] Comment on above: Performed By: #### E RUR #### [facility] [address] [place], [place] [phone] Lelia Dawn pH (Bld) 6.5 Normal 5-9 [facility] Comment on above: Performed By: #### E RUR #### [facility] [address] [place], [place] [phone] Lelia Dawn Protein (U) [Mass/Vol] Negative Normal NEGATIVE/ TRACE [facility] Comment on above: Performed By: #### E RUR #### [facility] [address] [place], [place] [phone] Lelia Dawn SPEC GRAVITY 1.025 Normal 1.005-<=1.025 [facility] Comment on above: Performed By: #### E RUR #### [facility] [address] [place] [address] Lelia Dawn UR MICRO IND NOT INDICATED Normal [facility] Comment on above: Performed By: #### E RUR #### [facility] [address] [place], [place] [phone] Lelia Dawn Urobilinogen Qn (U) 1.0 EU/dl Normal 0.2 - 1.0 [facility] Comment on above: Performed By: #### E RUR #### [facility] [address] [place], [place] [address] Lelia Dawn WBC (Bld) [#/Vol] Negative Normal NEGATIVE [facility] Comment on above: Performed By: #### E RUR #### [facility] [address] [place], [place] [address] Lelia Dawn PROF 14(COMP METB)on 021 Albumin [Mass/Vol] 3.8 g/dL Normal 3.5-5.0 [facility] Comment on above: Performed By: #### P TT, PT #### [facility] [address] [place], [place] [address] Lelia Dawn Albumin/Globulin [Mass ratio] 1.4 {ratio} Normal [facility] Comment on above: Performed By: #### P TT, PT #### [facility] [address] [place], [place] [address] Lelia Nereyda ALP [Catalytic activity/Vol] 97 U/L Normal 38-126 [facility] Comment on above: Performed By: #### P TT, PT #### [facility] [address] [place] [address] Lelia Nereyda ALT [Catalytic activity/Vol] 24 U/L Normal 21-72 [facility] Comment on above: Performed By: #### P TT, PT #### [facility] [address] [place] [address] Lelia Nereyda Anion gap [Moles/Vol] 8.7 mmol/L Normal [facility] Comment on above: Performed By: #### P TT, PT #### [facility] [address] [place] [address] Lelia Nereyda AST [Catalytic activity/Vol] 18 U/L Normal 17-59 [facility] Comment on above: Performed By: #### P TT, PT #### [facility] [address] [place] [address] Lelia Neryeda Bilirubin Ql (U) 0.4 mg/dL Normal 0.2-1.3 [facility] Comment on above: Performed By: #### P TT, PT #### [facility] [address] [place] [address] Lelia Nereyda Calcium [Mass/Vol] 8.8 mg/dL Normal 8.4-10.2 [facility] Comment on above: Performed By: #### P TT, PT #### [facility] [address] [place] [address] Lelia Nereyda Chloride [Moles/Vol] 106 mmol/L Normal 98-107 [facility] Comment on above: Performed By: #### P TT, PT #### [facility] [address] [place] [phone] Lelia Nereyda CO2 [Moles/Vol] 31.2 mmol/L Critically high 22.0-30.0 [facility] Comment on above: Performed By: #### P TT, PT #### [facility] [address] [place] [phone] Lelia Nereyda Creatinine [Mass/Vol] 1.00 mg/dL Normal 0.66-1.25 [facility] Comment on above: Performed By: #### P TT, PT #### [facility] [address] [place] [phone] Lelia Nereyda EGFR-AF ISRAELI >60 Normal >=60 [facility] Comment on above: Performed By: #### P TT, PT #### [facility] [address] [place] [phone] Lelia Nereyda EGFR-NON AF ISRAELI >60 Normal >=60 [facility] Comment on above: Performed By: #### P TT, PT #### [facility] [address] [place] [phone] Lelia Nereyda Globulin (S) [Mass/Vol] 2.7 g/dL Normal [facility] Comment on above: Performed By: #### P TT, PT #### [facility] [address] [place] [address] Lelia Nereyda Glucose [Mass/Vol] 101 mg/dL Normal 74-106 [facility] Comment on above: Performed By: #### P TT, PT #### [facility] [address] [place], [place] [address] Lelia Nereyda Potassium [Moles/Vol] 3.9 mmol/L Normal 3.4-5.0 [facility] Comment on above: Performed By: #### P TT, PT #### [facility] [address] [place] [address] Lelia Nereyda Protein [Mass/Vol] 6.5 g/dL Normal 6.1-8.2 [facility] Comment on above: Performed By: #### P TT, PT #### [facility] [address] [place] [id number] Lelia Nereyda Sodium [Moles/Vol] 142 mmol/L Normal 137-145 [facility] Comment on above: Performed By: #### P TT, PT #### [facility] [address] [place], [place] [phone] Lelia Nereyda Urea nitrogen [Mass/Vol] 17.0 mg/dL Normal 9.0-20.0 [facility] Comment on above: Performed By: #### P TT, PT #### [facility] [address] [place] [address] Lelia Dawn Urea nitrogen/Creatini ne [Mass ratio] 17.0 mg/mg Normal [facility] Comment on above: Performed By: #### P TT, PT #### [facility] [address] [place], [place] [phone] Lelia Nereyda PROTIMEon 05-03-2020 INR Coag (PPP) [Relative time] 1.03 {INR} Normal [facility] Comment on above: Performed By: #### P TT, PT #### [facility] [address] [place], [place] [phone] Lelia Nereyda PT Coag (PPP) [Time] SEE BELOW Normal [facility] Comment on above: Result Comment: MARCO RED INR: 2.0 - 3.0 CONDITIONS NOT LISTED BELOW 2.5 - 3.5 FOR PROSTHETIC HEART VALVE REPLACEMENT 2.5 - 3.5 RECURRENT THROMBOSIS Performed By: #### P TT, PT #### [facility] [address] [place], [place] [phone] Leliadeisi Dawn PT Coag (PPP) [Time] 11.2 s Normal 9.0-11.6 [facility] Comment on above: Performed By: #### P TT, PT #### [facility] [address] [place], [place] [phone] Lelia Nereyda PTTon 05-03-2020 aPTT Coag (Bld) [Time] 25.6 s Normal 22.3-36.2 [facility] Comment on above: Performed By: #### P TT, PT #### [facility] [address] [place], [place] [phone] Leliadeisi Dawn CBC AUTO DIFFon 09-10-2019 Basophils (Bld) [#/Vol] 0.0 103/ul Normal 0.0-0.1 [facility] Comment on above: Performed By: #### C BC #### [facility] [address] [place], [place] [phone] Lelia Dawn Basophils/100 WBC (Bld) 0.4 % Normal 0.2-2.0 [facility] Comment on above: Performed By: #### C BC #### [facility] [address] [place], [place] [phone] Lelia Nereyda Eosinophils (Bld) [#/Vol] 0.2 103/ul Normal 0.0-0.7 [facility] Comment on above: Performed By: #### C BC #### [facility] [address] [place], [place] [phone] Lelia Nereyda Eosinophils/100 WBC (Bld) 3.2 % Normal 0.9-7.0 [facility] Comment on above: Performed By: #### C BC #### [facility] [address] [place] [address] Lelia Nereyda Erythrocyte distribution width (RBC) [Ratio] 12.4 % Normal 11.0-15.0 [facility] Comment on above: Performed By: #### C BC #### [facility] [address] [place] [address] Lelia Nereyda Hematocrit (Bld) [Volume fraction] 41.3 % Critically low 42.0-54.0 [facility] Comment on above: Performed By: #### C BC #### [facility] [address] [place], [place] [id number] Lelia Nereyda Hemoglobin (Bld) [Mass/Vol] 13.8 g/dL Critically low 14.0-18.0 [facility] Comment on above: Performed By: #### C BC #### [facility] [address] [place] [address] Lelia Nereyda IG # 0.02 10e3/ul Normal 0.00-0.03 [facility] Comment on above: Performed By: #### C BC #### [facility] [address] [place], [place] [id number] Lelia Neeryda IG % 0.3 % Normal 0.0-0.5 [facility] Comment on above: Performed By: #### C BC #### [facility] [address] [place], [place] [id number] Lelia Nereyda Lymphocytes (Bld) [#/Vol] 1.6 103/ul Normal 1.2-3.8 [facility] Comment on above: Performed By: #### C BC #### [facility] [address] [place], [place] [address] Lelia Nereyda Lymphocytes/100 WBC (Bld) 21.6 % Normal 20.5-60.0 [facility] Comment on above: Performed By: #### C BC #### [facility] [address] [place], [place] [address] Lelia Nereyda MANUAL DIFF REQ NO [facility] Comment on above: Performed By: #### C BC #### [facility] [address] [place], [place] [address] Lelia Nereyda MCH (RBC) [Entitic mass] 28.7 pg Normal 25.9-34.0 [facility] Comment on above: Performed By: #### C BC #### [facility] [address] [place] [address] Lelia Nereyda MCHC (RBC) [Mass/Vol] 33.4 g/dL Normal 29.9-35.2 [facility] Comment on above: Performed By: #### C BC #### [facility] [address] [place], [place] [address] Lelia Nereyda MCV (RBC) [Entitic vol] 85.9 fL Normal 80.0-94.0 [facility] Comment on above: Performed By: #### C BC #### [facility] [address] [place], [place] [address] Lelia Nereyda Monocytes (Bld) [#/Vol] 0.5 103/ul Normal 0.3-0.8 [facility] Comment on above: Performed By: #### C BC #### [facility] [address] [place], [place] [address] Lelia Nereyda Monocytes/100 WBC (Bld) 6.9 % Normal 1.7-12.0 [facility] Comment on above: Performed By: #### C BC #### [facility] [address] [place], [place] [address] Lelia Nereyda Neutrophils (Bld) [#/Vol] 5.0 103/ul Normal 1.4-6.5 [facility] Comment on above: Performed By: #### C BC #### [facility] [address] [place], [place] [address] Lelia Dawn Neutrophils/100 WBC (Bld) 67.6 % Normal 43.0-75.0 [facility] Comment on above: Performed By: #### C BC #### [facility] [address] [place] [address] Lelia Dawn Platelet mean volume (Bld) [Entitic vol] 8.5 fL Critically low 9.5-13.5 [facility] Comment on above: Performed By: #### C BC #### [facility] [address] [place] [address] Lelia Dawn Platelets (Bld) [#/Vol] 287 103/ul Normal 150-450 [facility] Comment on above: Performed By: #### C BC #### [facility] [address] [place] [address] Lelia Dawn RBC (Bld) [#/Vol] 4.81 106/ul Normal 4.70-6.10 [facility] Comment on above: Performed By: #### C BC #### [facility] [address] [place] [address] Lelia Dawn WBC (Bld) [#/Vol] 7.4 103/ul Normal 4.0-11.0 [facility] Comment on above: Performed By: #### C BC #### [facility] [address] [place] [address] HEAD WO CONon 09-10-2019 CT HEAD WO CON EXAM: CT HEAD WO CON COMPARISON: Prior CT head exams from 2017. CLINICAL INFORMATION: Headache. TECHNIQUE: Axial noncontrast images were obtained through the brain and reconstructed using brain and bone algorithms with sagittal and coronal reconstructions. Dose reduction techniques were achieved by using automated exposure control and/or adjustment of mA and/or kV according to patient size and/or use of iterative reconstruction technique. FINDINGS: BRAIN: No intracranial hemorrhage. No extra-axial collection. No mass or mass effect. No midline shift. Previously seen scattered small round hypoattenuating lesions throughout the brain parenchyma appear to have intervally resolved. CSF: Ventricles and sulci appropriate for age. Basal cisterns are patent. ORBITS: Visualized orbital structures are unremarkable. SINUSES AND MASTOID AIR CELLS: Paranasal sinuses are clear. Mastoid air cells are clear. BONES: Status post prior left parietal craniotomy. A focus of hypoattenuation adjacent to the craniotomy site in the left parietal region on series 5 image 38 is unchanged, probable small focus of chronic encephalomalacia. SOFT TISSUES: Unremarkable. IMPRESSION: 1. No noncontrast CT evidence of acute intracranial abnormality. 2. Previously seen scattered small round hypoattenuating lesions throughout the brain parenchyma on the prior from 2017 appear to have intervally resolved. 3. Status post prior left parietal craniotomy. 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 4. If continued clinical concern consider MRI for further evaluation. Electronically authenticated by: JARAD VILLA Date: 2019-09-10 21:33 Normal [facility] LACTATE/LACTIC ACIDon 2019 Lactate [Moles/Vol] 1.3 mmol/L Normal 0.7-2.0 [facility] Comment on above: Performed By: #### L ACT #### [facility] [address] [place] [id number] Lelia Nereyda PROF CHEM 8 (BAS METB)on Anion gap [Moles/Vol] 8.8 mmol/L Normal [facility] Comment on above: Performed By: #### P TT, PT #### [facility] [address] [place] [id number] Lelia Nereyda Calcium [Mass/Vol] 8.6 mg/dL Normal 8.4-10.2 [facility] Comment on above: Performed By: #### P TT, PT #### [facility] [address] [place] [id number] Lelia Nereyda Chloride [Moles/Vol] 106 mmol/L Normal 98-107 [facility] Comment on above: Performed By: #### P TT, PT #### [facility] [address] [place], [place] [address] Lelia Nereyda CO2 [Moles/Vol] 31.8 mmol/L Critically high 22.0-30.0 [facility] Comment on above: Performed By: #### P TT, PT #### [facility] [address] [place] [address] Lelia Nereyda Creatinine [Mass/Vol] 1.12 mg/dL Normal 0.66-1.25 [facility] Comment on above: Performed By: #### P TT, PT #### [facility] [address] [place] [address] Lelia Nereyda EGFR-AF ISRAELI >60 Normal >=60 [facility] Comment on above: Performed By: #### P TT, PT #### [facility] [address] [place] [address] Lelia Nereyda EGFR-NON AF ISRAELI >60 Normal >=60 [facility] Comment on above: Performed By: #### P TT, PT #### [facility] [address] [place] [address] Lelia Nereyda Glucose [Mass/Vol] 119 mg/dL Critically high 74-106 [facility] Comment on above: Performed By: #### P TT, PT #### [facility] [address] [place] [address] Lelia Nereyda Potassium [Moles/Vol] 3.6 mmol/L Normal 3.4-5.0 [facility] Comment on above: Performed By: #### P TT, PT #### [facility] [address] [place] [address] Lelia Nereyda Sodium [Moles/Vol] 143 mmol/L Normal 137-145 [facility] Comment on above: Performed By: #### P TT, PT #### [facility] [address] [place] [address] Lelia Nereyda Urea nitrogen [Mass/Vol] 12.0 mg/dL Normal 9.0-20.0 [facility] Comment on above: Performed By: #### P TT, PT #### [facility] [address] [place] [address] Lelia Nereyda Urea nitrogen/Creatini ne [Mass ratio] 10.7 mg/mg Normal [facility] Comment on above: Performed By: #### P TT, PT #### [facility] [address] [place], [place] [address] Lelia Dawn TROPONIN - Ion 09-10-2019 Troponin I.cardiac [Mass/Vol] SEE BELOW Normal [facility] Comment on above: Result Comment: <0.0 34 ng/ml NEGATIVE 0.034-0.119 INDETERMINATE 0.120 AMI CUT OFF Performed By: #### B MP, TROP #### [facility] [address] [place] [id number] Lelia Nereyda Troponin I.cardiac [Mass/Vol] ng/mL Normal <=0.034 [facility] Comment on above: Performed By: #### B MP, TROP #### [facility] [address] [place] [id number] Lelia Dawn XR CHEST 1 Von 09-10-2019 XR CHEST 1 V EXAM: XR CHEST 1 V HISTORY: COUGH COMPARISON: Chest x-ray of 02/02/2017. TECHNIQUE: Single AP portable upright view of the chest is submitted for review. FINDINGS: The heart size is normal. Lungs are clear. No focal consolidation, pneumothorax or pleural effusion is seen. The visualized osseous structures appear unremarkable. IMPRESSION: No radiographic evidence for acute cardiopulmonary disease. Electronically authenticated by: QI BONDS Date: 2019-09-10 21:38 Normal [facility] Vital Signs Date Time Vital Sign Value Performing Clinician Facility 12-24-2022 14:05-0400 Body height 175.26 cm [facility] Other 12-24-2022 14:05-0400 Body mass index (BMI) [Ratio] 20.7 kg/m2 Sylvie the gra[facility] Other [facility] Other 12-24-2022 14:05-0400 Body temperature 98.3 [degF] Sylvie Morales Other [facility] Other 12-24-2022 14:05-0400 Body weight 63.59 kg [facility] Other [facility] Other 12-24-2022 14:05-0400 Respiratory rate 18 /min Sylvie Morales Other [facility] Other 12-24-2022 14:05-0400 SaO2% (BldA) [Mass fraction] 97 % Sylvie Morales Other [facility] Other 07-14-2022 12:45-0400 Body height 175.26 cm Seble Freed Other [facility] Other 07-14-2022 12:45-0400 Body mass index (BMI) [Ratio] 20.08 kg/m2 Seble Freed Other [facility] Other 07-14-2022 12:45-0400 Body temperature 99.1 [degF] Seble Freed Other [facility] Other 07-14-2022 12:45-0400 Body weight 61.69 kg Seble Freed Other [facility] Other 07-14-2022 12:45-0400 Respiratory rate 18 /min Seble Fre[facility] Other [facility] Other 07-14-2022 12:45-0400 SaO2% (BldA) [Mass fraction] 98 % [facility]ble Fre[facility] Other [facility] Other Encounters Encounter Date Encounter Type Care Provider Facility Start: 12-24-2022 End: 12-24-2022 ambulatory Sylvie Morales Other [facility] Other Start: 12-24-2022 Office outpatient visit 15 minutes Sylvie Morales [facility] Start: 07-14-2022 End: 07-14-2022 ambulatory Seble Freed Other [facility] Other Start: 07-14-2022 Office outpatient visit 25 minutes Seble Freed [facility] Start: 02-27-2022 End: 02-27-2022 Emergency department patient visit [facility] Start: 05-03-2020 End: 05-03-2020 Patient encounter procedure NADIYA BELÉNDANIELLE Facility:[facility] Start: 09-10-2019 End: 09-11-2019 Patient encounter procedure NADIYA NASH Facility: Start: 03-29-2018 End: 03-29-2018 ambulatory DIANE KISER Facility:[facility] Start: 01-30-2017 End: 01-31-2017 Ambulatory DEFAULT PHYSICIAN Facility:[facility] Start: 01-11-2017 End: 01-12-2017 Ambulatory DEFAULT PHYSICIAN Facility:[facility] Procedures Date Procedure Procedure Detail Performing Clinician Start: 09-10-2019 End: 09-10-2019 Microscopic examination of blood, culture NADIYA MELISSADANIELLE Comment on above: Performed By: #### B [id number] #### [facility] [address] [place] [address] Lelia Dawn Performed By: #### P TT, PT #### [facility] [address] [place] [address] Lelia Dawn Start: 03-29-2018 alveoloplasty in con junction with extractions - four or more teeth or tooth spaces, per quadrant DIANE KISER Start: 03-29-2018 extraction, erupted tooth or exposed root (elevation and/or forceps removal) DIANE KISER Start: 03-29-2018 removal of impacted tooth - partially bony DIANE KISER Payers Date Payer Category Payer Medicaid [id number] 2017 Medicaid [id number] 1990 Unknown [id number] 1990 Unknown [id number] 1990 Unknown [id number] 1959 Self-pay [id number] Unknown Unknown [id number]. [id number] Social History Date Type Detail Facility Unknown if ever smoked [facility] Other Sex Assigned At Sex Assigned At Bir [facility] Other Evaluation note 12-24-2022 Note Date & Type Note Facility 12-24-2022 Evaluation note Encounter Date Diagnosis Assessment Notes Dec, Suspected COVID-19 virus infection (ICD-10 - Z20.822) Dec, Acute pansinusitis (ICD-10 - J01.40) rx sent, take as directed. continue symptomatic tx as discussed. recommended hot steam baths, cool mist humidifier and/or sinus lavage with Neti Pot. push rest/fluids. encouraged pulmonary hygiene tech. reinforced good hand and cough hygiene for infection control. immediate eval if warning s/s of respir distress. otherwise f/u with PCP in 3-4 days if s/s persists or worsens despite treatment. [facility] Other Evaluation note 07-14-2022 Note Date & Type Note Facility 07-14-2022 Evaluation note Encounter Date Diagnosis Assessment Notes July, Contact with and (suspected) exposure to covid-19 (ICD-10 - Z20.822) July, Viral URI (ICD-10 - J06.9) Advised patient that COVID/Influenza A/B test and rapid Strep test was negative today. Advised patient that will treat as viral URI. Supportive care as directed, increase fluids and rest, Tylenol/Motrin as directed, rx of Capmist, OTC Flonase, cool mist humidifier, throat lozenges. Discussed infection control practices such as good hand washing and mask wearing. Patient to follow up with PCP if symptoms persist or worsen despite treatment. Immediate eval for SOB, difficulty breathing, chest pain, fevers that do not break with antipyretic or any other concerning symptoms as reviewed on patient education handout. Patient verbalizes understanding and is agreeable to treatment plan. Patient left in stable condition. July, Sore throat (ICD-10 - J02.9) [facility] Other History general Narrative - Reported Note Date & Type Note Facility History general Narrative - Reported Type Medical History Brain lesion Medical History Pulmonary embolism Medical History Drug abuse and dependence Surgical History brain surgery Surgical History tonsillectomy Hospitalization History see above [facility] Other Summary Purpose Family History No Family History Records FoundNo Family History Records FoundNo Family History Records FoundNo Family History Records Found Advance Directives No Advanced Directives Records FoundNo Advanced Directives Records FoundNo Advanced Directives Records FoundNo Advanced Directives Records Found Additional Source Comments (unrecognized sect ion and content) No Status Records FoundNo Status Records FoundNo Status Records FoundNo Status Records Found INFORMATION SOURCE (unrecogn ized section and content) DATE CREATED AUTHOR 08/29/2017 [facility] DATE CREATED AUTHOR AUTHOR'S ORGANIZ ATION 05/06/2020 [facility] DATE CREATED AUTHOR AUTHOR'S ORGANIZ ATION 03/29/2021 [facility] DATE CREATED AUTHOR AUTHOR'S ORGANIZ ATION 03/05/2022 [facility] REASON FOR VISIT (unrecogniz ed section and content) SORE THROAT AND ACHEY ALL OV ERCHEST CONGESTION, SORE THROAT FOR RECORDS PERTAINING TO PATIENTS WHO ARE OR HAVE BEEN ENROLLED IN A CHEMICAL DEPENDENCY/SUBSTANCEABUSE PROGRAM, SOME INFORMATION MAY BE OMITTED. This clinical summary was aggregated from multiple sources. Caution should be exercised in using it in the provision of clinical care. This summary normalizes information from multiple sources, and as a consequence, information in this document may materially change the coding, format and clinical context of patient data. In addition, data may be omitted in some cases. CLINICAL DECISIONS SHOULD BE BASED ON THE PRIMARY CLINICAL RECORDS. [employer] [facility]. provides no warranty or guarantee of the accuracy or completeness of information in this document.
--- NOTE | 2023-07-28 11:47 | PC.NURSE ---
Kaitlin at [facility] called and given intake information regarding patient. Facesheet faxed over. Patient is next to speak to intake and is estimated to be about an hour and a half until they would be able to speak to him. Medical clearance in process.
--- NOTE | 2023-07-28 11:50 | ED.PSYCH1 ---
HPI - Psych General Chief Complaint: Anxiety Stated Complaint: suicidal ideation Time Seen by Provider: 07/28/23 11:31 Source: Reports patient Mode of arrival: walk-in Limitations: Reports no limitations History of Present Illness HPI Narrative: 32-year-old male presents for suicidal thoughts. He told his counselor 2 days ago that he did not want to live anymore. His dad came and took his gun for safekeeping. The patient states he has a ratchet strap hanging from his ceiling in his home. He has not done anything to hurt himself in the past few days. He states a few weeks ago he was drinking booze and took some sleeping pills. He has no physical complaints Related Data Allergies Allergy/AdvReac Type Severity Reaction Status Date / Time vancomycin AdvReac Severe Verified 07/17/23 20:53 Review of Systems ROS Narrative A ten point review of systems is negative except as noted above. PFSH PFSH Social History Smoking status: Current every day smoker Exam Narrative Exam Narrative: Nurses note and vital signs reviewed and patient is not hypoxic. General: The patient appears well and in no apparent distress. Patient is resting comfortably on cart. Skin: Warm, dry, no pallor noted. There is no rash noted. Head: Normocephalic, atraumatic Eye: Normal conjunctiva, no drainage Ears, Nose, Mouth, and Throat: oral mucosa is moist. Nares patent. Cardiovascular: Regular Rate and Rhythm Respiratory: Patient is in no distress, no accessory muscle use, lungs are clear to auscultation, no wheezing, rales or rhonchi Back: non-tender GI: Soft and nontender Musculoskeletal: The patient has no evidence of calf tenderness, no pitting edema, symmetrical pulses noted bilaterally Neurological: A&O x4, normal speech Psychiatric: Cooperative Constitutional Vital Signs, click to edit/add: Last Vital Signs Temp 98.2 F 07/28/23 11:30 Pulse 99 H 07/28/23 11:30 Resp 16 07/28/23 11:30 BP 130/88 07/28/23 11:30 Pulse Ox 99 07/28/23 11:30 O2 Del Method Room Air 07/28/23 11:30 Course Vital Signs Vital signs: Vital Signs Temperature 98.2 F 07/28/23 11:30 Pulse Rate 99 H 07/28/23 11:30 Respiratory Rate 16 07/28/23 11:30 Blood Pressure 130/88 07/28/23 11:30 Pulse Oximetry 99 07/28/23 11:30 Oxygen Delivery Method Room Air 07/28/23 11:30 Temperature 98.2 F 07/28/23 11:30 Pulse Rate 99 H 07/28/23 11:30 Respiratory Rate 16 07/28/23 11:30 Blood Pressure 130/88 07/28/23 11:30 Pulse Oximetry 99 07/28/23 11:30 Oxygen Delivery Method Room Air 07/28/23 11:30 MDM - Psych MDM Narrative Medical decision making narrative: The patient is medically cleared and has been accepted for transfer to [facility]. He is stable and agreeable for transfer. Differential Diagnosis Differential diagnosis: Likely suicidal ideation, depression and acute anxiety Lab Data Attestation: I reviewed the patient's lab results. Labs: Lab Results 07/28/23 Range/Units 12:00 WBC 6.3 (4.0-11.0) 10^3/uL RBC 4.24 L (4.70-6.10) 10^6/uL Hgb 12.1 L (14.0-18.0) g/dL Hct 36.8 L (42.0-54.0) % MCV 86.8 (80.0-94.0) fL MCH 28.5 (25.9-34.0) pg MCHC 32.9 (29.9-35.2) g/dL RDW 13.8 (11.0-15.0) % Plt Count 226 (150-450) 10^3/uL MPV 8.5 L (9.5-13.5) fL Neut % (Auto) 64.4 (43.0-75.0) % Lymph % (Auto) 20.2 L (20.5-60.0) % [place] % (Auto) 7.1 (1.7-12.0) % Eos % (Auto) 7.3 H (0.9-7.0) % Baso % (Auto) 0.8 (0.2-2.0) % Neut # (Auto) 4.1 (1.4-6.5) 10^3/uL Lymph # (Auto) 1.3 (1.2-3.8) 10^3/uL [place] # (Auto) 0.5 (0.3-0.8) 10^3/uL Eos # (Auto) 0.5 (0.0-0.7) 10^3/uL Baso # (Auto) 0.1 (0.0-0.1) 10^3/uL Abs Immat Gran (auto) 0.01 (0.00-0.03) 10^3/uL Imm/Tot Granulo (auto) 0.2 (0.0-0.5) % Sodium 141 (136-145) mmol/L Potassium 3.5 (3.5-5.1) mmol/L Chloride 103 (98-107) mmol/L Carbon Dioxide 30.0 (21.0-32.0) mmol/L Anion Gap 11.5 BUN 14.0 (7.0-18.0) mg/dL Creatinine 0.93 (0.70-1.30) mg/dL Est GFR ( Amer) >60 (>=60) Est GFR (Non-Af Amer) >60 (>=60) BUN/Creatinine Ratio 15.1 Glucose 97 (74-106) mg/dL Calcium 8.6 (8.5-10.1) mg/dL Salicylates <2.8 (<=19.9) mg/dL Acetaminophen <10.0 L (10.0-30.0) ug/mL Ethanol Quant 12 mg/dL ECG Data Attestation: I personally reviewed and interpreted this ECG as follows: (EKG on my interpretation shows sinus rhythm with a rate of 59) Discharge Plan Discharge Chief Complaint: Anxiety Clinical Impression: Suicidal ideation Patient Disposition: [facility] Time of Disposition Decision: 14:02 Discharge Location: [facility] Condition: Good Mode of Transportation: EMS
--- NOTE | 2023-07-28 11:53 | PC.NURSE ---
Patient reports history of opioid abuse for past 20 years-off and on-as well as alcohol use. patient states he has had suicidal thoughts for a while with previous attempts via pushing the envelop with using in the past. Patient relays to physician that his dad took his gun for safe keeping but that he currently has a ratchet strap hanging from his ceiling and has also thought about using sleeping pills and alcohol as a means to commit suicide.
[2023-07-28 12:04] LABS: Basophils Absolute Auto 0.1 10^3/uL (0.0-0.1); Basophils Percent Auto 0.8 % (0.2-2.0); Eosinophils Absolute Auto 0.5 10^3/uL (0.0-0.7); Eosinophils Percent Auto 7.3 % (0.9-7.0); Hematocrit 36.8 % (42.0-54.0); Hemoglobin 12.1 g/dL (14.0-18.0); Immature Granulocytes Abs Auto 0.01 10^3/uL (0.00-0.03); Immature Granulocytes Pct Auto 0.2 % (0.0-0.5); Lymphocytes Absolute Auto 1.3 10^3/uL (1.2-3.8); Lymphocytes Percent Auto 20.2 % (20.5-60.0); Mean Corpuscular HGB Conc 32.9 g/dL (29.9-35.2); Mean Corpuscular Hemoglobin 28.5 pg (25.9-34.0); Mean Corpuscular Volume 86.8 fL (80.0-94.0); Mean Platelet Volume 8.5 fL (9.5-13.5); Monocytes Absolute Auto 0.5 10^3/uL (0.3-0.8); Monocytes Percent Auto 7.1 % (1.7-12.0); Neutrophils Absolute Auto 4.1 10^3/uL (1.4-6.5); Neutrophils Percent Auto 64.4 % (43.0-75.0); Platelet Count 226 10^3/uL (150-450); Red Blood Count 4.24 10^6/uL (4.70-6.10); Red Cell Distribution Width 13.8 % (11.0-15.0); White Blood Count 6.3 10^3/uL (4.0-11.0)
[2023-07-28 12:12] VITALS: BP 114/79
[2023-07-28 12:19] LABS: Anion Gap 11.5; BUN Creatinine Ratio 15.1; Calcium 8.6 mg/dL (8.5-10.1); Chloride 103 mmol/L (98-107); Estimated GFR (African America >60 (>=60); Estimated GFR (Non-African Ame >60 (>=60); Ethanol 12 mg/dL; Glucose 97 mg/dL (74-106); Potassium 3.5 mmol/L (3.5-5.1); Salicylate <2.8 mg/dL (<=19.9); Sodium 141 mmol/L (136-145)
[2023-07-28 12:24] LABS: Acetaminophen <10.0 ug/mL (10.0-30.0)
[2023-07-28 12:37] VITALS: PULSE 67
--- NOTE | 2023-07-28 13:44 | ECG_ITS ---
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
[2023-07-28 14:02] LABS: Bilirubin Urine NEGATIVE (NEGATIVE); Blood Urine NEGATIVE (NEGATIVE); Clarity Urine CLEAR (CLEAR); Color Urine LT. YELLOW (YELLOW); Glucose Urine UA NEGATIVE (NEGATIVE); Ketones Urine NEGATIVE (NEGATIVE); Leukocyte Esterase Urine NEGATIVE (NEGATIVE); Nitrite Urine NEGATIVE (NEGATIVE); Protein Urine NEGATIVE (NEG/TRACE); Urobilinogen Urine 0.2 EU/dL (0.2-1.0)
[2023-07-28 14:09] LABS: Amphetamine Screen Urine NEGATIVE (NEGATIVE); Barbiturates Screen Urine NEGATIVE (NEGATIVE); Benzodiazepines Screen Urine NEGATIVE (NEGATIVE); Buprenorphine Screen Urine NEGATIVE (NEGATIVE); Cannabinoid Screen Urine NEGATIVE (NEGATIVE); Cocaine Screen Urine NEGATIVE (NEGATIVE); Methadone Screen Urine NEGATIVE (NEGATIVE); Methamphetamines Screen Urine NEGATIVE (NEGATIVE); Opiate Screen Urine POSITIVE (NEGATIVE); Oxycodone Screen Urine NEGATIVE (NEGATIVE); Phencyclidine Screen Urine NEGATIVE (NEGATIVE); Tricyclic Antidepressant Urine NEGATIVE (NEGATIVE)
[2023-07-28 14:17] LABS: Bacteria Urine NONE SEEN #/HPF (NONE SEEN); Mucus Urine SMALL (NONE SEEN); RBC Urine NONE SEEN #/HPF (0-2); Squamous Epithelial Cell Urine NONE SEEN #/LPF (NONE/RARE); WBC Urine 0-2 #/HPF (NONE SEEN)
[2023-07-28 14:18] LABS: Cast Seen? NONE SEEN #/LPF (NONE SEEN); Crystals Seen? None Seen #/HPF (None Seen); Sperm Urine SEEN
[2023-07-28 20:20] VITALS: BP 128/72; PULSE 90; O2SAT 98
== END 2023-07-28 20:20 ==
PROVIDERS: Emergency Provider Emergency Medicine; PCP Nurse Practitioner Family
DX: R45.851 Suicidal ideations (principal)
CPT/HCPCS: 36415; 80048; 80179; 80307; 80320; 80329; 81001; 85025; 93005; 99285

== ENCOUNTER 2023-08-04 09:25 | Outpatient (OUT) | payer OTHER, SELFPAY ==
--- NOTE | 2023-08-04 09:38 | MR_ITS ---
The [address] [address] Patient Name: TC TRUJILLO MRN: [id number] date: 1990 Sex: M Assigned Patient Location: [facility] Current Patient Location: Accession/Order Number: [id number] Exam Date: 08/04/2023 10:00 Report Date: 08/07/2023 07:07 At the request of: MOI PACHECO Procedure: MR head/brain wo/w con MR head/brain wo/w con, 08/04/2023 10:00 AM EDT INDICATION: Abnormal Brain CT R90.89 COMPARISON: Prior CT of the head dated 01/08/2017 and 06/16/2023 TECHNIQUE: Multiplanar, multisequential MRI images of brain were obtained without and with injection of contrast. FINDINGS: The cerebral sulci as well as ventricular system are appropriate for age. There is status post left frontoparietal craniectomy with encephalomalacia with foci of hemosiderin deposition within the left parietal lobe likely postsurgical. There is no restricted diffusion. Hyperintensities on T2 and FLAIR images in the rao radiata and centrum semiovale with sparing of U fibers are nonspecific, commonly seen in the in microvascular ischemic changes, demyelinating process, vasculitis or traumatic brain injury. There is no intracranial mass, mass effect, midline shift, intra or extra-axial fluid collection or large hemorrhage. No abnormal enhancing lesion is noted. Normal flow-void in the intracranial vessels is noted. The visualized portions of orbits, mastoid air cells as well as paranasal sinuses are unremarkable. 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 MR/MR head/brain wo/w con IMPRESSION: No acute intracranial process is noted. Nonspecific white matter changes. 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 Electronically authenticated by: HAFSA HANSON Date: 08/07/2023 07:07
--- OUTSIDE RECORDS SUMMARY | 2023-08-04 09:38 | XMS_ITS ---
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 Name Role Phone PHYSICIAN, DEFAULT Unavailable Unavailable PHYSICIAN, DEFAULT Unavailable Unavailable PHYSICIAN, DEFAULT Unavailable Unavailable PHYSICIAN, DEFAULT Unavailable Unavailable PAVDANIELLE, ABHIJEET Primary Care Unavailable LEXI CAR Attending Unavailable LEXI CAR Consulting Unavailable LEXI CAR Admitting Unavailable SAAD, ABHIJEET Primary Care Unavailable DAVID STANFORD Attending UnavailDAVID Dumas Consulting UnavailDAVID Dumas Admitting UnavailJARAD Yanez Consulting Unavailable QI BONDS Consulting Unavailable DIANE KISER Referring Unavailable DIANE KISER Attending Unavailable DIANE KISER Admitting Unavailable JADEN LING Attending Unavailable Seble Freed Unavailable Sylvie Morales Unavailable MICHELLE Nelson Primary Care Provider MD Patricio Hyde Admit Provider MD Patricio Hyde Attending Provider Patricio Hyde Attending Unavailab Patricio Cunningham Admitting Unavailab Joy Cruz Primary Care Unavailable Allergies Allergy Classification Reported Allergen(s) Allergy Type Date of Onset Reaction(s) Facility (1 source) bee venom Drug allergy (disorder) 10-29-2013 [facility] Repository (3 sources) Vancomycin; Translations: [VANCOMYCIN] Drug Allergy 03-22-2018 [facility] Repository (1 source) WASP VENOM PROTEIN; Translations: [WASP VENOM PROTEIN] Drug Allergy 01-09-2017 [facility] Repository (1 source) HYMENOPTERA ALLERGENIC EXTRACT; Translations: [HYMENOPTERA ALLERGENIC EXTRACT] Drug Allergy 01-09-2017 [facility] Repository (2 sources) Vancomycin Drug Allergy hot flash [employer] [facility] Other (1 source) Vancomycin Drug Allergy 12-24-2022 [facility] Repository Encounters Encounter Date Encounter Type Care Provider Facility Start: 07-29-2023 Non-patient / Non-visit AUTO POLISHER-C Joy Nelson Work Phone: [facility] Work Phone: Start: 07-28-2023 End: 07-31-2023 Evaluation and management of inpatient Patricio Marieez Facility:[facility] Start: 07-28-2023 End: 07-31-2023 Evaluation and management of inpatient AUTO POLISHER-C Joy Nelson Work Phone: [facility] [place] [address] Work Phone: Start: 12-24-2022 End: 12-24-2022 ambulatory Sylvie Morales Other [facility] Other Start: 12-24-2022 Office outpatient visit 15 minutes Sylvie Morales [facility] Start: 07-14-2022 End: 07-14-2022 ambulatory Seble Abdiaziz Other [facility] [employer] Other Start: 07-14-2022 Office outpatient visit 25 minutes Seble Freed [facility] Start: 02-27-2022 End: 02-27-2022 Emergency department patient visit JADEN LING [facility] Start: 05-03-2020 End: 05-03-2020 Patient encounter procedure ABHIJEET MELISSADANIELLE Facility:[facility] Start: 09-10-2019 End: 09-11-2019 Patient encounter procedure MAX PAVDANIELLE Facility:[facility] Start: 03-29-2018 End: 03-29-2018 ambulatory DIANE KISER Facility:[facility] Start: 01-30-2017 End: 01-31-2017 Ambulatory DEFAULT PHYSICIAN Facility:[facility] Start: 01-11-2017 End: 01-12-2017 Ambulatory DEFAULT PHYSICIAN Facility:[facility] Goals Date Patient Goal Desired Activity /State Medications Current Medications Medication Drug Class(es) Dates Sig (Normalized) Sig (Original) amoxicillin 875 mg / clavulanate 125 mg oral tablet (1 source) Penicillin-class Antibacterial Start: 12-24-2022 take 1 tablet by mouth every twelve hours Amoxicillin-Pot Clavulanate 875-125 MG 1 tablet Orally every 12 hrs for 10 day(s) Dec, Active dextromethorphan hydrobromide 30 mg / pyrilamine maleate 30 mg oral tablet (1 source) Uncompetitive H-ejurie-D-aspartate Receptor Antagonist, Sigma-1 Agonist Start: 12-24-2022 [place]en DMT 30-30 MG 1 tablet Orally every 6-8 hours for 10 days Dec, Active fluticasone propionate 0.05 mg/actuat metered dose nasal spray (3 sources) Corticosteroid Start: 04-26-2018 take 1 spray(s) nasal route once daily Fluticasone Propionate 50 MCG/ACT 1 spray in each nostril Nasally Once a day for 14 day(s) Dec, Active 24 hr nicotine 0.875 mg/hr transdermal system (1 source) Cholinergic Nicotinic Agonist Start: 07-31-2023 Nicotine Active 21 MG TRANSDERML Daily July 31, 2023 12:00am Completed/Discontinued Medications Medication Drug Class(es) Dates Sig [...] oral tablet (2 sources) alpha-Adrenergic Agonist, Uncompetitive P-dxkmfn-E-aspartat e Receptor Antagonist, Sigma-1 Agonist Start: 07-14-2022 [...] as needed for 4 days Apr, Not-Taking Payers Date Payer Category Payer Self-pay 2023 Unknown [id number] 2022 Medicaid [id number] 2017 Medicaid [id number] 1990 Unknown [id number] 1990 Unknown [id number] 1990 Unknown [id number] 1959 Self-pay [id number] Unknown Unknown [id number] Plan of Treatment Date Care Activity Detail Author Start: 07-31-2023 [facility] Start: 07-28-2023 Referral to Painter And Decorator [facility] Start: 07-28-2023 Hospital admission [facility] Patient Education Depression, Ad ult (ÓSCAR) Suicide Prevention [facility] [place] Instructions Know your Meds [facility] Work Phone: Patient referral [facility] Work Phone: Problems Active Problems Problem Classification Problem Date Documented Da te Episodic/Chronic Influenza (2 sources) Influenza due to other identified influenza virus with other respiratory manifestations; Translations: [Influenza due to other identified influenza virus with other respiratory manifestations] Onset: 02-27-2022 Episodic Mood disorders (3 sources) Depressive disorder; Translations: [Depression with suicidal ideation] Onset: 07-28-2023 07-29-2023 Chronic Mood disorders (1 source) Mood disorders; Translations: [Depression, unspecified] Onset: 07-28-2023 Other connective tissue disease (3 sources) Other [...] [NICOTINE DEPEND CIGARETTES UNCOMP] Onset: 05-05-2020 Chronic Suicide and intentional self-inflicted injury (1 source) Suicidal ideations; Translations: [Suicidal ideations] Onset: 07-28-2023 Episodic Unclassified (1 source) Myalgia, unspecified site; Translations: [MYALGIA UNSPECIFIED SITE] Onset: 09-13-2019 Past or Other Problems Problem Classification Problem Date Documented Da te Episodic/Chronic Headache; including migraine (4 sources) Headache; Translations: [HEADACHE] Onset: 09-10-2019 Episodic Unclassified (2 sources) Contact with and (suspected) exposure to covid-19 Z20.822 Procedures Date Procedure Procedure Detail Performing Clinician Start: 09-10-2019 End: 09-10-2019 Microscopic examination of blood, culture ABHIJEET NASH Comment on above: Performed By: #### B [id number] #### [facility] [address] [place] [address] Lelia Dawn Performed By: #### P TT, PT #### [facility] [address] [place] [address] Lelia Dawn Start: 03-29-2018 alveoloplasty in con junction with extractions - four or more teeth or tooth spaces, per quadrant DIANE KISER Start: 03-29-2018 extraction, erupted tooth or exposed root (elevation and/or forceps removal) DIANE KISER Start: 03-29-2018 removal of impacted tooth - partially bony DIANE KSIER Results Test Name Value Interpretation Reference Range Facility Cholesterol [Mass/volume] in Serum or PlasmaOrdered By: Patricio Hyde on 07-29-2023 Cholesterol [Mass/Vol] 116 mg/dL 140-200 [facility] Comment on above: Chol less than 200 m g/dl low riskChol 201-239 mg/dl borderline riskChol 240 mg/dl and greater high risk Cholesterol in LDL Calc [Mas s/Vol]Ordered By: Patricio Hyde on 07-29-2023 Cholesterol in LDL [Mass/Vol] 47 mg/dL 0-100 [facility] Comment on above: LDL ATP III CLASSIFI CATIONLDL less than 100 mg/dL OptimalLDL 100-129 mg/dL Near or above optimalLDL 130-159 mg/dL Borderline highLDL 160-189 mg/dL HighLDL greater than 189 mg/dL Very high Cholesterol in VLDL Calc [Ma ss/Vol]Ordered By: Patricio Hyde on 07-29-2023 Cholesterol in VLDL [Mass/Vol] 22 mg/dL [facility] Lipid Panelon 07-29-2023 Cholesterol [Mass/Vol] 116 mg/dL Low 140-200 [facility] Comment on above: Result Comment: Chol less than 200 mg/dl low risk Chol 201-239 mg/dl borderline risk Chol 240 mg/dl and greater high risk Performed By: #### V [id number], TSH3 wRFLX, LIPID #### [facility] [address] [place], [place] [address] Cholesterol in HDL [Mass/Vol] 46 mg/dL Normal 23-92 [facility] Comment on above: Result Comment: HDL CHOL ATP-III CLASSIFICATION Cardiovascular Risk HDL > or equal to 60 mg/dL LOW HDL < 40 mg/dL HIGH Performed By: #### V [id number], TSH3 wRFLX, LIPID #### [facility] [address] Cholesterol.total/Cho lesterol in HDL [Mass ratio] 2.5 {ratio} Normal <5.0 [facility] Comment on above: Performed By: #### V [id number], TSH3 wRFLX, LIPID #### [facility] [address] LDL Cholesterol,Calculate d 47 mg/dL Normal 0-100 [facility] Comment on above: Result Comment: LDL ATP III CLASSIFICATION LDL less than 100 mg/dL Optimal LDL 100-129 mg/dL Near or above optimal LDL 130-159 mg/dL Borderline high LDL 160-189 mg/dL High LDL greater than 189 mg/dL Very high Performed By: #### V [id number], TSH3 wRFLX, LIPID #### [facility] [address] Triglyceride w/Reflex 113 mg/dL Normal 0-149 [facility] Comment on above: Result Comment: TRIG ATP III CLASSIFICATION TRIG less than 150 mg/dL Normal TRIG 150-199 mg/dL Borderline high TRIG 200-500 mg/dL High TRIG greater than 500 mg/dL Very high Standard traceable to the Center for Disease Conrtrol and Prevention (CDC) test method. Performed By: #### V [id number], TSH3 wRFLX, LIPID #### [facility] [address] VLDL CHOLESTEROL 22 mg/dL Normal [facility] Comment on above: Performed By: #### V [id number], TSH3 wRFLX, LIPID #### [facility] [address] Serum or plasma high density lipoprotein (HDL) cholesterol measurementOrdered By: Patricio Hyde on 07-29-2023 Cholesterol in HDL [Mass/Vol] 46 mg/dL 23-92 [facility] Comment on above: HDL CHOL ATP-III CLA SSIFICATION Cardiovascular RiskHDL > or equal to 60 mg/dL LOWHDL < 40 mg/dL HIGH Serum or plasma total choles terol/high density lipoprotein (HDL) cholesterol mass ratOrdered By: Patricio Hyde on 07-29-2023 Cholesterol.total/Cho lesterol in HDL [Mass ratio] 2.5 {ratio} <5.0 [facility] Thyroid Stim Hormone w/Rflxo n 07-29-2023 Thyroid Stim Hormone w/Rflx 0.64 u[iU]/mL Normal 0.45-5.33 [facility] Comment on above: Performed By: #### V [id number], TSH3 wRFLX, LIPID #### [facility] [address] Thyrotropin [Units/volume] i n Serum or PlasmaOrdered By: Patricio Hyde on 07-29-2023 TSH Qn 0.64 m[IU]/L 0.45-5.33 [facility] Triglyceride [Mass/volume] i n Serum or PlasmaOrdered By: Patricio Hyde on 07-29-2023 Triglyceride [Mass/Vol] 113 mg/dL 0-149 [facility] Comment on above: TRIG ATP III CLASSIF ICATIONTRIG less than 150 mg/dL NormalTRIG 150-199 mg/dL Borderline highTRIG 200-500 mg/dL High TRIG greater than 500 mg/dL Very highStandard traceable to the Center for Disease Conrtrol and Prevention (CDC) test method. Vitamin D 25 Hydroxy Totalon 07-29-2023 Vitamin D 25 Hydroxy Total 30.7 ng/mL Normal 30-100 [facility] Comment on above: Result Comment: MÓNICA MIN D STATUS 25([place])VITAMIN D RANGE (ng/mL) Deficient <20 Insufficient 20 to <30 Sufficient 30 to 100 Reference: Leo MF,Marlo NC, Chayito TIERNEY, et al. Evaluation,treatment, and prevention of vitamin D deficiency; an Endocrine Society clinical practice guideline. JCEM. 2010; 96(7):1911-30. PERFORMED BY: [place] [address] [employer] LAWRENCE LORENZ M.D. Performed By: #### V [id number], TSH3 wRFLX, LIPID #### [facility] [address] Vitamin D+Metabolites [Mass/ volume] in Serum or PlasmaOrdered By: Patricio Hyde on 07-29-2023 Vitamin D+Metabolites [Mass/Vol] 30.7 ng/mL 30-100 [facility] Comment on above: VITAMIN D STATUS 25( [place])VITAMIN D RANGE (ng/mL) Deficient <20 Insufficient 20 to <30Sufficient 30 to 100Reference: Leo MF,Marlo NC, Chayito TIERNEY, et al. Evaluation,treatment, and prevention of vitamin D deficiency; an Endocrine Society clinical practice guideline. JCEM. 2010; 96(7):1911-30. COVID + FLU Quick Testingon 12-24-2022 SARS-CoV-2 (COVID-19) RNA ANALILIA+probe Ql (Unsp spec) Negative [facility] Other COVID + FLU Quick Testing Negative [facility] Other COVID + FLU Quick Testingon 07-14-2022 SARS-CoV-2 (COVID-19) RNA ANALILIA+probe Ql (Unsp spec) negtive [facility] Other COVID + FLU Quick Testing Negative [facility] Other Quick Strepon 07-14-2022 S. pyogenes Org specific cx Ql (Throat) neative [facility] Other Quick Strep [facility] Other EDNURSon 02-27-2022 EDNURS Pt c/o vomiting, headache, cough, sore throat x3 days. 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 Normal [facility] EDPROVon 02-27-2022 EDPROV HPI Chief Complaint Patient presents with ??? Vomiting ??? URI Fever, bartolome aches, anorexia for a week. No abd pain, mild headache, no cp, no skin rash Stevenson Coma Scale Score: 15 Patient History History [...] ED Course & MDM Diagnoses as of 03/05/22811 Influenza A MDM Attestion Jaden Ling MD 03/05/22 0812 Normal [facility] BNPon 05-03-2020 Natriuretic peptide B (Bld) [Mass/Vol] 26.0 pg/mL Normal <=450.0 [facility] Comment on above: Performed By: #### P TT, PT #### [facility] [address] [place] [address] Lelia Dawn CBC AUTO DIFFon 05-03-2020 Basophils (Bld) [#/Vol] 0.0 103/ul Normal 0.0-0.1 [facility] Comment on above: Performed By: #### C BC #### [facility] [address] [place], [place] [id number] Lelia Nereyda Basophils/100 WBC (Bld) 0.6 % Normal 0.2-2.0 [facility] Comment on above: Performed By: #### C BC #### [facility] [address] [place], [place] [id number] Lelia Nereyda Eosinophils (Bld) [#/Vol] 0.5 103/ul Normal 0.0-0.7 [facility] Comment on above: Performed By: #### C BC #### [facility] [address] [place], [place] [id number] Lelia Nereyda Eosinophils/100 WBC (Bld) 7.9 % Critically high 0.9-7.0 [facility] Comment on above: Performed By: #### C BC #### [facility] [address] [place] [address] Lelia Nereyda Erythrocyte distribution width (RBC) [Ratio] 12.9 % Normal 11.0-15.0 [facility] Comment on above: Performed By: #### C BC #### [facility] [address] [place], [place] [id number] Lelia Nereyda Hematocrit (Bld) [Volume fraction] 44.1 % Normal 42.0-54.0 [facility] Comment on above: Performed By: #### C BC #### [facility] [address] [place], [place] [id number] Lelia Nereyda Hemoglobin (Bld) [Mass/Vol] 14.5 g/dL Normal 14.0-18.0 [facility] Comment on above: Performed By: #### C BC #### [facility] [address] [place] [address] Lelia Nereyda IG # 0.01 10e3/ul Normal 0.00-0.03 [facility] Comment on above: Performed By: #### C BC #### [facility] [address] [place] [address] Lelia Nereyda IG % 0.1 % Normal 0.0-0.5 [facility] Comment on above: Performed By: #### C BC #### [facility] [address] [id number] Lelia Nereyda Lymphocytes (Bld) [#/Vol] 1.7 103/ul Normal 1.2-3.8 [facility] Comment on above: Performed By: #### C BC #### [facility] [address] [id number] Lelia Nereyda Lymphocytes/100 WBC (Bld) 24.1 % Normal 20.5-60.0 [facility] Comment on above: Performed By: #### C BC #### [facility] [address] [place], [place] [id number] Lelia Nereyda MANUAL DIFF REQ NO Normal [facility] Comment on above: Performed By: #### C BC #### [facility] [address] [place], [place] [id number] Lelia Nereyda MCH (RBC) [Entitic mass] 28.6 pg Normal 25.9-34.0 [facility] Comment on above: Performed By: #### C BC #### [facility] [address] [place], [place] [id number] Lelia Nereyda MCHC (RBC) [Mass/Vol] 32.9 g/dL Normal 29.9-35.2 [facility] Comment on above: Performed By: #### C BC #### [facility] [address] [place], [place] [id number] Lelia Nereyda MCV (RBC) [Entitic vol] 87.0 fL Normal 80.0-94.0 [facility] Comment on above: Performed By: #### C BC #### [facility] [address] [place], [place] [id number] Lelia Nereyda Monocytes (Bld) [#/Vol] 0.7 103/ul Normal 0.3-0.8 [facility] Comment on above: Performed By: #### C BC #### [facility] [address] [place], [place] [id number] Lelia Nereyda Monocytes/100 WBC (Bld) 10.4 % Normal 1.7-12.0 [facility] Comment on above: Performed By: #### C BC #### [facility] [address] [place], [place] [address] Lelia Nereyda Neutrophils (Bld) [#/Vol] 3.9 103/ul Normal 1.4-6.5 [facility] Comment on above: Performed By: #### C BC #### [facility] [address] [place], [place] [address] Lelia Nereyda Neutrophils/100 WBC (Bld) 56.9 % Normal 43.0-75.0 [facility] Comment on above: Performed By: #### C BC #### [facility] [address] [place] [address] Lelia Nereyda Platelet mean volume (Bld) [Entitic vol] 8.8 fL Critically low 9.5-13.5 [facility] Comment on above: Performed By: #### C BC #### [facility] [address] [place] [address] Lelia Nereyda Platelets (Bld) [#/Vol] 280 103/ul Normal 150-450 [facility] Comment on above: Performed By: #### C BC #### [facility] [address] [place] [address] Lelia Nereyda RBC (Bld) [#/Vol] 5.07 106/ul Normal 4.70-6.[address] [facility] Comment on above: Performed By: #### C BC #### [facility] [address] [place] [address] Lelia Nereyda WBC (Bld) [#/Vol] 6.8 103/ul Normal 4.0-11.0 [facility] Comment on above: Performed By: #### C BC #### [facility] [address] [place] [address] Lelia Nereyda ER URINE PROFILEon 1 Bilirubin [Mass/Vol] Negative Normal NEGATIVE [facility] Comment on above: Performed By: #### E RUR #### [facility] [address] [place] [address] Lelia Nereyda BLOOD Negative Normal NEGATIVE [facility] Comment on above: Performed By: #### E RUR #### [facility] [address] [place] [address] Lelia Nereyda Clarity (U) CLEAR Normal CLEAR [facility] Comment on above: Performed By: #### E RUR #### [facility] [address] [place] [address] Lelia Nereyda Color (U) YELLOW Normal YELLOW [facility] Comment on above: Performed By: #### E RUR #### [facility] [address] [place] [address] Lelia Nereyda ERUAHD A micrscopic examination will be performed if indicated. Normal [facility] Comment on above: Performed By: #### E RUR #### [facility] [address] [place] [address] Lelia Nereyda Glucose [Mass/Vol] Negative Normal NEGATIVE [facility] Comment on above: Performed By: #### E RUR #### [facility] [address] [place] [address] Lelia Nereyda Ketones Ql (U) Negative Normal NEGATIVE [facility] Comment on above: Performed By: #### E RUR #### [facility] [address] [place] [address] Lelia Nereyda Nitrite Ql (U) Negative Normal NEGATIVE [facility] Comment on above: Performed By: #### E RUR #### [facility] [address] [place] [address] Lelia Nereyda pH (Bld) 6.5 Normal 5-9 [facility] Comment on above: Performed By: #### E RUR #### [facility] [address] [place] [address] Lelia Nereyda Protein (U) [Mass/Vol] Negative Normal NEGATIVE/ TRACE [facility] Comment on above: Performed By: #### E RUR #### [facility] [address] [place] [address] Lelia Nereyda SPEC GRAVITY 1.025 Normal 1.005-<=1.02 5 [facility] Comment on above: Performed By: #### E RUR #### [facility] [address] [place] [address] Lelia Nereyda UR MICRO IND NOT INDICATED Normal [facility] Comment on above: Performed By: #### E RUR #### [facility] [address] [place], [place] [id number] Lelia Dawn Urobilinogen Qn (U) 1.0 EU/dl Normal 0.2 - 1.0 [facility] Comment on above: Performed By: #### E RUR #### [facility] [address] [place], [place] [id number] Lelia Dawn WBC (Bld) [#/Vol] Negative Normal NEGATIVE [facility] Comment on above: Performed By: #### E RUR #### [facility] [address] [place], [place] [id number] Lelia Dawn PROF 14(COMP METB)on 021 Albumin [Mass/Vol] 3.8 g/dL Normal 3.5-5.0 [facility] Comment on above: Performed By: #### P TT, PT #### [facility] [address] [place], [place] [id number] Lelia Dawn Albumin/Globulin [Mass ratio] 1.4 {ratio} Normal [facility] Comment on above: Performed By: #### P TT, PT #### [facility] [address] [place], [place] [id number] Lelia Dawn ALP [Catalytic activity/Vol] 97 U/L Normal 38-126 [facility] Comment on above: Performed By: #### P TT, PT #### [facility] [address] [place], [place] [id number] Lelia Dawn ALT [Catalytic activity/Vol] 24 U/L Normal 21-72 [facility] Comment on above: Performed By: #### P TT, PT #### [facility] [address] [place], [place] [id number] Lelia Dawn Anion gap [Moles/Vol] 8.7 mmol/L Normal [facility] Comment on above: Performed By: #### P TT, PT #### [facility] [address] [place], [place] [id number] Lelia Dawn AST [Catalytic activity/Vol] 18 U/L Normal 17-59 [facility] Comment on above: Performed By: #### P TT, PT #### [facility] [address] [address] Lelia Nereyda Bilirubin Ql (U) 0.4 mg/dL Normal 0.2-1.3 [facility] Comment on above: Performed By: #### P TT, PT #### [facility] [address] [place] [address] Lelia Nereyda Calcium [Mass/Vol] 8.8 mg/dL Normal 8.4-10.2 [facility] Comment on above: Performed By: #### P TT, PT #### [facility] [address] [place] [address] Lelia Nereyda Chloride [Moles/Vol] 106 mmol/L Normal 98-107 [facility] Comment on above: Performed By: #### P TT, PT #### [facility] [address] [place] [address] Lelia Nereyda CO2 [Moles/Vol] 31.2 mmol/L Critically high 22.0-30.0 [facility] Comment on above: Performed By: #### P TT, PT #### [facility] [address] [place] [address] Lelia Nereyda Creatinine [Mass/Vol] 1.00 mg/dL Normal 0.66-1.25 [facility] Comment on above: Performed By: #### P TT, PT #### [facility] [address] [place] [address] Lelia Nereyda EGFR-AF SINGAPOREAN >60 Normal >=60 [facility] Comment on above: Performed By: #### P TT, PT #### [facility] [address] [place] [address] Lelia Nereyda EGFR-NON AF SINGAPOREAN >60 Normal >=60 [facility] Comment on above: Performed By: #### P TT, PT #### [facility] [address] [place] [address] Lelia Nereyda Globulin (S) [Mass/Vol] 2.7 g/dL Normal [facility] Comment on above: Performed By: #### P TT, PT #### [facility] [address] [place], [place] [address] Lelia Nereyda Glucose [Mass/Vol] 101 mg/dL Normal 74-[address] [facility] Comment on above: Performed By: #### P TT, PT #### [facility] [address] [place], [place] [address] Ellia Nereyda Potassium [Moles/Vol] 3.9 mmol/L Normal 3.4-5.0 [facility] Comment on above: Performed By: #### P TT, PT #### [facility] [address] [place], [place] [address] Lelia Nereyda Protein [Mass/Vol] 6.5 g/dL Normal 6.1-8.2 [facility] Comment on above: Performed By: #### P TT, PT #### [facility] [address] [place] [address] Lelia Nereyda Sodium [Moles/Vol] 142 mmol/L Normal 137-[address] [facility] Comment on above: Performed By: #### P TT, PT #### [facility] [address] [place] [address] Lelia Nereyda Urea nitrogen [Mass/Vol] 17.0 mg/dL Normal 9.0-20.0 [facility] Comment on above: Performed By: #### P TT, PT #### [facility] [address] [place] [address] Lelia Nereyda Urea nitrogen/Creatinine [Mass ratio] 17.0 mg/mg Normal [facility] Comment on above: Performed By: #### P TT, PT #### [facility] [address] [place], [place] [address] Lelia Nereyda PROTIMEon 05-03-2020 INR Coag (PPP) [Relative time] 1.03 {INR} Normal [facility] Comment on above: Performed By: #### P TT, PT #### [facility] [address] [place], [place] [address] Lelia Nereyda PT Coag (PPP) [Time] SEE BELOW Normal [facility] Comment on above: Result Comment: MARCO RED INR: 2.0 - 3.0 CONDITIONS NOT LISTED BELOW 2.5 - 3.5 FOR PROSTHETIC HEART VALVE REPLACEMENT 2.5 - 3.5 RECURRENT THROMBOSIS Performed By: #### P TT, PT #### [facility] [address] [place] [address] Lelia Dawn PT Coag (PPP) [Time] 11.2 s Normal 9.0-11.6 [facility] Comment on above: Performed By: #### P TT, PT #### [facility] [address] [place], [place] [id number] Lelia Dawn PTTon 05-03-2020 aPTT Coag (Bld) [Time] 25.6 s Normal 22.3-36.2 [facility] Comment on above: Performed By: #### P TT, PT #### [facility] [address] [place], [place] [id number] Leliadeisi Dawn CBC AUTO DIFFon 09-10-2019 Basophils (Bld) [#/Vol] 0.0 103/ul Normal 0.0-0.1 [facility] Comment on above: Performed By: #### C BC #### [facility] [address] [place], [place] [id number] Lelia Dawn Basophils/100 WBC (Bld) 0.4 % Normal 0.2-2.0 [facility] Comment on above: Performed By: #### C BC #### [facility] [address] [place], [place] [id number] Lelia Nereyda Eosinophils (Bld) [#/Vol] 0.2 103/ul Normal 0.0-0.7 [facility] Comment on above: Performed By: #### C BC #### [facility] [address] [place], [place] [id number] Lelia Nereyda Eosinophils/100 WBC (Bld) 3.2 % Normal 0.9-7.0 [facility] Comment on above: Performed By: #### C BC #### [facility] [address] [place], [place] [id number] Lelia Nereyda Erythrocyte distribution width (RBC) [Ratio] 12.4 % Normal 11.0-15.0 [facility] Comment on above: Performed By: #### C BC #### [facility] [address] [id number] Lelia Nereyda Hematocrit (Bld) [Volume fraction] 41.3 % Critically low 42.0-54.0 [facility] Comment on above: Performed By: #### C BC #### [facility] [address] [phone] Lelia Nereyda Hemoglobin (Bld) [Mass/Vol] 13.8 g/dL Critically low 14.0-18.0 [facility] Comment on above: Performed By: #### C BC #### [facility] [address] [phone] Lelia Nereyda IG # 0.02 10e3/ul Normal 0.00-0.03 [facility] Comment on above: Performed By: #### C BC #### [facility] [address] [place], [place] [id number] Lelia Nereyda IG % 0.3 % Normal 0.0-0.5 [facility] Comment on above: Performed By: #### C BC #### [facility] [address] [phone] Lelia Nereyda Lymphocytes (Bld) [#/Vol] 1.6 103/ul Normal 1.2-3.8 [facility] Comment on above: Performed By: #### C BC #### [facility] [address] [place], [place] [id number] Lelia Nereyda Lymphocytes/100 WBC (Bld) 21.6 % Normal 20.5-60.0 [facility] Comment on above: Performed By: #### C BC #### [facility] [address] [place], [place] [id number] Leliadeisi Dawn MANUAL DIFF REQ NO Normal [facility] Comment on above: Performed By: #### C BC #### [facility] [address] [place], [place] [id number] Lelia Fungen MCH (RBC) [Entitic mass] 28.7 pg Normal 25.9-34.0 [facility] Comment on above: Performed By: #### C BC #### [facility] [address] [place], [place] [address] Lelia Nereyda MCHC (RBC) [Mass/Vol] 33.4 g/dL Normal 29.9-35.2 [facility] Comment on above: Performed By: #### C BC #### [facility] [address] [place], [place] [address] Lelia Nereyda MCV (RBC) [Entitic vol] 85.9 fL Normal 80.0-94.0 [facility] Comment on above: Performed By: #### C BC #### [facility] [address] [place] [address] Lelia Nereyda Monocytes (Bld) [#/Vol] 0.5 103/ul Normal 0.3-0.8 [facility] Comment on above: Performed By: #### C BC #### [facility] [address] [place] [address] Lelia Nereyda Monocytes/100 WBC (Bld) 6.9 % Normal 1.7-12.0 [facility] Comment on above: Performed By: #### C BC #### [facility] [address] [place] [address] Lelia Nereyda Neutrophils (Bld) [#/Vol] 5.0 103/ul Normal 1.4-6.5 [facility] Comment on above: Performed By: #### C BC #### [facility] [address] [place] [address] Lelia Nereyda Neutrophils/100 WBC (Bld) 67.6 % Normal 43.0-75.0 [facility] Comment on above: Performed By: #### C BC #### [facility] [address] [place] [address] Lelia Nereyda Platelet mean volume (Bld) [Entitic vol] 8.5 fL Critically low 9.5-13.5 [facility] Comment on above: Performed By: #### C BC #### [facility] [address] [place] [address] Lelia Nereyda Platelets (Bld) [#/Vol] 287 103/ul Normal 150-450 [facility] Comment on above: Performed By: #### C BC #### [facility] [address] [place], [place] [address] Lelia Dawn RBC (Bld) [#/Vol] 4.81 106/ul Normal 4.70-6.10 [facility] Comment on above: Performed By: #### C BC #### [facility] [address] [place], [place] [address] Lelia Dawn WBC (Bld) [#/Vol] 7.4 103/ul Normal 4.0-11.0 [facility] Comment on above: Performed By: #### C BC #### [facility] [address] [place], [place] [address] HEAD WO CONon 09-10-2019 [...] the brain parenchyma on the prior from 2016 appear to have intervally resolved. 3. Status post prior left parietal craniotomy. 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 4. If continued clinical concern consider MRI for further evaluation. Electronically authenticated by: JARAD VILLA Date: 2019-09-10 21:33 Normal [facility] LACTATE/LACTIC ACIDon 2019 Lactate [Moles/Vol] 1.3 mmol/L Normal 0.7-2.0 [facility] Comment on above: Performed By: #### L ACT #### [facility] [address] [place], [place] [address] Lelia Nereyda PROF CHEM 8 (BAS METB)on Anion gap [Moles/Vol] 8.8 mmol/L Normal [facility] Comment on above: Performed By: #### P TT, PT #### [facility] [address] [phone] Lelia Nereyda Calcium [Mass/Vol] 8.6 mg/dL Normal 8.4-10.2 [facility] Comment on above: Performed By: #### P TT, PT #### [facility] [address] [address] Lelia Nereyda Chloride [Moles/Vol] 106 mmol/L Normal 98-107 [facility] Comment on above: Performed By: #### P TT, PT #### [facility] [address] [phone] Lelia Nereyda CO2 [Moles/Vol] 31.8 mmol/L Critically high 22.0-30.0 [facility] Comment on above: Performed By: #### P TT, PT #### [facility] [address] [address] Lelia Nereyda Creatinine [Mass/Vol] 1.12 mg/dL Normal 0.66-1.25 [facility] Comment on above: Performed By: #### P TT, PT #### [facility] [address] [phone] Lelia Nereyda EGFR-AF SINGAPOREAN >60 Normal >=60 [facility] Comment on above: Performed By: #### P TT, PT #### [facility] [address] [phone] Lelia Nereyda EGFR-NON AF [place]OREAN >60 Normal >=60 [facility] Comment on above: Performed By: #### P TT, PT #### [facility] [address] [place], [place] [address] Lelia Nereyda Glucose [Mass/Vol] 119 mg/dL Critically high 74-106 [facility] Comment on above: Performed By: #### P TT, PT #### [facility] [address] [place], [place] [address] Lelia Nereyda Potassium [Moles/Vol] 3.6 mmol/L Normal 3.4-5.0 [facility] Comment on above: Performed By: #### P TT, PT #### [facility] [address] [phone] Lelia Nereyda Sodium [Moles/Vol] 143 mmol/L Normal 137-145 [facility] Comment on above: Performed By: #### P TT, PT #### [facility] [address] [place], [place] [id number] Lelia Nereyda Urea nitrogen [Mass/Vol] 12.0 mg/dL Normal 9.0-20.0 [facility] Comment on above: Performed By: #### P TT, PT #### [facility] [address] [place], [place] [id number] Lelia Nereyda Urea nitrogen/Creatinine [Mass ratio] 10.7 mg/mg Normal [facility] Comment on above: Performed By: #### P TT, PT #### [facility] [address] [place], [place] [id number] Lelia Nereyda TROPONIN - Ion 09-10-2019 Troponin I.cardiac [Mass/Vol] SEE BELOW Normal [facility] Comment on above: Result Comment: <0.0 34 ng/ml NEGATIVE 0.034-0.119 INDETERMINATE 0.120 AMI CUT OFF Performed By: #### B MP, TROP #### [facility] [address] [place], [place] [id number] Lelia Nereyda Troponin I.cardiac [Mass/Vol] ng/mL Normal <=0.034 [facility] Comment on above: Performed By: #### B MP, TROP #### [facility] [address] [place], [place] [address] Lelia Nereyda XR CHEST 1 Von 09-10-2019 XR CHEST [...] by: QI BONDS Date: 2019-09-10 21:38 Normal [facility] Social History Date Type Detail Facility Start: 07-29-2023 Tobacco smoking status NHIS Smoker (finding) [facility] Start: 1990 Sex Assigned At Male F [facility] Unknown if ever smoked [facility] Other Sex Assigned At Sex Assigned At Bir th [facility] Other Vital Signs Date Time Vital Sign Value Performing Clinician Facility 07-31-2023 08:32-0400 Body weight 61.5 kg [employer] Joydennise Bernabemer Work Phone: [facility] 07-31-2023 07:30-0400 Body temperature 98.1 [degF] [employer] Joy Omar Work Phone: [facility] 07-31-2023 07:30-0400 Diastolic blood pressure 72 mm[Hg] [employer] Joy Omar Work Phone: [facility] 07-31-2023 07:30-0400 Heart rate 88 /min [employer] Joy Omar Work Phone: [facility] 07-31-2023 07:30-0400 Respiratory rate 18 /min [employer] Joy Omar Work Phone: [facility] 07-31-2023 07:30-0400 SaO2% (BldA) [Mass fraction] 99 % [employer] Joy Omar Work Phone: [facility] 07-31-2023 07:30-0400 Systolic blood pressure 125 mm[Hg] [employer] Joy Omar Work Phone: [facility] 07-28-2023 21:52-0400 Body height 172.72 cm MICHELLE Joy Nelson Work Phone: [facility] 12-24-2022 14:05-0400 Body height 175.26 cm Sylvie Morales Other [facility] Other 12-24-2022 14:05-0400 Body mass index (BMI) [Ratio] 20.7 kg/m2 Sylvie Morales Other [facility] Other 12-24-2022 14:05-0400 Body temperature 98.3 [degF] Sylvie Morales Other [facility] Other 12-24-2022 14:05-0400 Body weight 63.59 kg Sylvie Morales Other [facility] Other 12-24-2022 14:05-0400 Respiratory rate 18 /min Sylvie Morales Other [facility] Other 12-24-2022 14:05-0400 SaO2% (BldA) [Mass fraction] 97 % Sylvie Morales Other [facility] Other 07-14-2022 12:45-0400 Body height 175.26 cm Seble Freed Other [facility] Other 07-14-2022 12:45-0400 Body mass index (BMI) [Ratio] 20.08 kg/m2 Seble Abdiaziz Other [facility] Other 07-14-2022 12:45-0400 Body temperature 99.1 [degF] Seble Abdiaziz Other [facility] Other 07-14-2022 12:45-0400 Body weight 61.69 kg Seble Freed Other [employer] [facility] Other 07-14-2022 12:45-0400 Respiratory rate 18 /min Seble Freed Other [facility] Other 07-14-2022 12:45-0400 SaO2% (BldA) [Mass fraction] 98 % Seble Freed Other [employer] [facility] Other Functional Status Date Assessment Result Facility 07-31-2023 Functional status Patient at [facility] Work Phone: 07-28-2023 Functional status Disability Sta tus Patient Not at [facility] Work Phone: Mental Status Date Assessment Result Facility 07-31-2023 Cognitive function Cognitive Sta tus Patient at [facility] Work Phone: Hospital Discharge instructions 07-31-2023 Note Date & Type Note Facility 07-31-2023 Hospital Discharg e instructions Additional Instructions Important Contact Information You can call [facility] at [phone] any time day or night if you have emergent questions or question regarding discharge instructions. If at any time you are feeling an increase in your psychiatric symptoms, call your physician or behavioral healthcare provider. If any time you have thoughts of harming yourself or others contact one of the following: Call 8-8 (available 26/09) Crisis Text Line (available 26/09) text 4HOPE to [phone] [facility] Hope Line (available 8 a.m. Midnight) call [phone] ([phone]) Regular Diet No Activity Restrictions [facility] Work Phone: Progress note 07-30-2023 Note Date & Type Note Facility 07-30-2023 Progress note Note Date/Time July 30, 2023 6:35am [facility] [address] [place], [place] [id number] Psychiatry Progress Note Signed Patient: Peterson Duran MR#: [id number] : 1990 Acct:[id number] Age/Sex: 32 / M Adm Date: 4 Loc: 1S Room: [address] [place] [address] Type : ADM IN Attending Dr: Patricio Hyde MD Copies to: ~ Date of Service: 07/30/2023 Subjective Subjective Narrative: Mr. Duran said he has no suicidal thoughts. He said he promised his therapist about no killing himself. He said he is planning to stay with his mom when discharged. He states that he does not want to take medications. He has a lot ofpsychosocial stressors. He went through a recent breakup and described it as themain stressor. 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 He does not want to goto rehab. He likes outpatient treatment. He understands that he needs to report to his chief supply chain officer I need to give her a clean urine. Patient does reporta 20-year opiate addiction, he states that he recently relapsed on fentanyl earlier this week. He denies any auditory or visual hallucinations. Patient reports his anxiety and depression is approximately a 6/10. Appearance: grossly normal Mental Status: mental status grossly normal Mood: anxious mood Affect: dysphoric affect Speech and Movement: speech normal, movement normal Attitude: cooperative Thought Process: normal Thought Content: Denied hallucinations, no homicidality, reported no suicidality Insight: fair Judgment: fair Exam Physical Exam Vital Signs: Temp Pulse Resp BP Pulse Ox O2 Del Method 98.2 F 64 16 138/76 100 Room Air 07/29/23 20:05 07/29/23 20:05 07/29/23 20:05 07/29/23 20:05 07/29/23 20:05 07/29/23 20:05 Objective Labs Labs: Abnormal Labs 07/29/23 05:52 Cholesterol 116 L Assessment/Plan Assessment/Plan (1) Depression with suicidal ideation: Plan Patient states that he is ready to be discharged and denied SI/HI. Monitor suicidal behaviors for safety of self (15-minute face check). Recommend attending groups and psychoeducation for building coping skills. Typical short and long-term side effects of the proposed medication regiment, including contraindications and clinically significant interactions, were discussed with the patient. Side effects include but not limited to sedation, overdose, hypo or hypertension, rash, movement disorders (TD, EPS), weight gain,and appetite changes and advised the patient not to drive or drink while taking these meds. Patient should reach out to medical provider if any of these side effects occur. We also discussed risk of overdose with this current med regimenpatient voiced understanding of benefits and agreement with treatment plan. Targeted symptoms and signs, possible therapeutic benefit, side effect and riskswere discussed. No abnormal movements noted on exam. AIMS is Zero. Involved friends/family members if applicable to coordinate care and ensure appropriate outpatient appointments are scheduled prior to discharge. I have reviewed evaluations by other providers (ER notes, nurses and staff) Documented By: Patricio Hyde MD 4 [id number] Signed By: <Electronically signed by Patricio Hyde MD> 07/30/23 0636 [facility] Work Phone: History and physical note 07-29-2023 Note Date & Type Note Facility 07-29-2023 History and physi colton note Note Date/Time July 29, 2023 6:38pm [facility] [address] [place] [address] Psychiatry H&P Signed Patient: Peterson Duran MR#: [id number] : 1990 Acct:[id number] Age/Sex: 32 / M Adm Date: 4 Loc: Room: [address] [place] [address] Type: ADM IN Attending Dr: Patricio Hyde MD Copies to: MD Joy Self CNP~ Date of Service: 07/29/2023 HPI History of Present Illness History of present illness: Mr. Duran is a 32 year old male with a reported history of anxiety, depression who presents for inpatient treatment due to concern for depression and suicidal ideation with thoughts of overdosing on pills. Reportedly, patient presents to the ER in [place] with depression and suicidal ideation. Patient was personally seen by me on the day of the encounter. I reviewed the history and performed the licea elements of the assessment. I formulated the planof care and confirmed this with the medical student as noted below At the time of the interview, he presented as depressed. Patient recently brokeup with his girlfriend. Patient had suicidal ideation to overdose on sleeping pills and alcohol. Patient currently denies any suicidal ideation this morning. Per report, about a week ago patient took 9-10 Seroquel. Patient is unsure howmany milligrams he took. Patient states that he went to the emergency department yesterday at the urging of his therapist after stating that he was suicidal. Patient does report a 20-year opiate addiction, he states that he recently relapsed on fentanyl earlier this week. He denies any auditory or visual hallucinations. Patient reports his anxiety and depression is approximately a 6/10. Patient also reports decreased sleep, decreased appetite,weight loss and nightmares. Patient states he has an MRI scheduled at [facility] for a spot on his brain. States he has a history of brain biopsies forlesions. Patient denies any previous hospitalizations, and he is not happy thatthis is his first psych admission. Past psychiatric history: Anxiety, depression Past Hospitalizations: Denies Past suicide attempts: Denies Previous medications: Denies Alcohol and drug use: + EtOH, fentanyl Living: Patient was by himself Employment: Employed Review of systems: Constitutional: Denies chills and denies fever Eyes: Denies change in vision ENT: Denies abnormal hearing Cardiovascular: Denies chest pain Respiratory: Denies chest congestion and denies cough Gastrointestinal: Denies change in bowel habits Genitourinary: Denies dysuria Musculoskeletal: Denies headache Integumentary/breast: Denies dry skin Neurologic: Denies abnormal gait and denies abnormal movements Psychiatric: reports depression and suicidal ideation Physical exam: Constitutional: Cooperative Nutritional appearance: Average body habitus Orientation: Alert, awake and oriented x 3 HEENT: Head normal to inspection, hearing grossly normal bilaterally, external nose normal, face symmetric Eyes: Appearance normal, both eyes and all related structures, sclera normal Neck: Normal visual inspection and full ROM Respiratory: Normal respiratory effort, able to speak in complete sentences and symmetric chest movement Cardio: Regular rate GI: Normal to inspection and nondistended : Deferred Skin: No rashes or lesions noted Neuro: CN I: Normal olfaction, CN II: Visual lei intact, CN III, IV, : EOM intact, no nystagmus. Pupils equal, round, reactive to light and accommodation,CN V: Sensation intact to light touch, CN VII: Raises eyebrows, smile/frown, puff out cheeks symmetrically, CN VIII: Hearing intact bilaterally, CN IX, X: Voice normal, soft palate elevation normal, symmetrical, CN XI: Shoulder shrug strong, equal bilaterally, CN XII: Tongue protrusion midline, movements symmetrical. Extremities: Normal to inspection and full ROM Mental Status Exam: Appearance: grossly normal Mental Status: mental status grossly normal Mood: dysthymic mood Affect: dysphoric affect Speech and Movement: speech normal, movement normal Attitude: cooperative Thought Process: normal Thought Content: Denied hallucinations, no homicidality, reported suicidality Insight: fair Judgment: fair [facility] Medical History (Updated 07/29/23 @ 07:58 by Abhijeet Michael) Necrosis Brain lesion Surgical History (Updated 07/28/23 @ 21:51 by Tierra Hurtado RN) History of tonsillectomy H/O brain surgery Family History (Updated 07/28/23 @ 21:51 by Tierra Hurtado RN) Other No significant family history Social History Smoking Status: Current every day smoker Tobacco Type: e-cigarettes Substance Use Type: Alcohol and Opiates Meds Medications and Allergies Allergies vancomycin Allergy (Unknown, Verified 12/24/22 14:28) hot flash Home Medications No known home meds 07/28/23 [History Confirmed 07/28/23] Exam Physical Exam Vital Signs: Temp Pulse Resp BP Pulse Ox O2 Del Method 97.7 F 56 L 16 109/73 98 Room Air 07/29/23 07:30 07/29/23 07:30 07/29/23 07:30 07/29/23 07:30 07/29/23 07:30 07/29/23 07:30 Assessment/Plan (1) Depression with suicidal ideation: Plan Admit to for management of depression and to ensure safety of self due to SI. Patient is refusing medication or treatment. Monitor suicidal behaviors for safety of self (15-minute face check). Recommend attending groups and psychoeducation for building coping skills. Typical short and long-term side effects of the proposed medication regiment, including contraindications and clinically significant interactions, were discussed with the patient. Side effects include but not limited to sedation, overdose, hypo or hypertension, rash, movement disorders (TD, EPS), weight gain,and appetite changes and advised the patient not to drive or drink while taking these meds. Patient should reach out to medical provider if any of these side effects occur. We also discussed risk of overdose with this current med regimenpatient voiced understanding of benefits and agreement with treatment plan. Targeted symptoms and signs, possible therapeutic benefit, side effect and riskswere discussed. No abnormal movements noted on exam. AIMS is Zero. Involved friends/family members if applicable to coordinate care and ensure appropriate outpatient appointments are scheduled prior to discharge. I have reviewed evaluations by other providers (ER notes, nurses and staff) Prognosis: Factors to be considered are the chronicity and severity of the symptoms and signs, associated comorbidity, and differential diagnosis-motivation to get intotreatment, response to treatment, adherence to treatment recommendations, and using skills. The patient's verbal consent was provided. Documented By: Patricio Hyde MD [id number] Signed By: <Electronically signed by Patricio Hyde MD> 07/29/23 [id number] [facility] Work Phone: Evaluation note 12-24-2022 Note Date & Type [...] if s/s persists or worsens despite treatment. [facility] Other Evaluation note 07-14-2022 Note Date & [...] condition. July, Sore throat (ICD-10 - J02.9) [facility] Other Evaluation note Note Date & Type Note Facility Evaluation note Diagnosis Onset Date Depression with suicidal ideation [facility] Work Phone: History general Narrative - Reported Note Date & Type Note Facility History general Narrative - Reported Type Medical History Brain lesion Medical History Pulmonary embolism Medical History Drug abuse and dependence Surgical History brain surgery Surgical History tonsillectomy Hospitalization History see above [facility] Other Summary Purpose Family History No Family History Records Found Relationship Condition Age at Onset Recorded Date/T john Not Specified No pertinent family history Unknown Advance Directives No Advanced Directives Records Found Advance Directive Response Recorded Date/ Time Advance Directives No July 27 7:20pm Chief Complaint and Reason for Visit Chief Complaint Major Depression Dis order Major Depression Disorder Reason for Visit Depression with suic idal ideation Additional Source Comments (unrecognized sect ion and content) No Status Records FoundNo Status Records FoundNo Status Records FoundNo Status Records FoundNo Status Records Found INFORMATION SOURCE (unrecogn ized section and content) DATE CREATED AUTHOR 08/29/2017 [facility] DATE CREATED AUTHOR AUTHOR'S ORGANIZ ATION 05/06/2020 [facility] DATE CREATED AUTHOR AUTHOR'S ORGANIZ ATION 03/29/2021 [facility] [facility] DATE CREATED AUTHOR AUTHOR'S ORGANIZ ATION 03/05/2022 [facility] [place] DATE CREATED AUTHOR AUTHOR'S ORGANIZ ATION 08/04/2023 [facility] REASON FOR VISIT (unrecogniz ed section and content) SORE THROAT AND ACHEY ALL OV ERCHEST CONGESTION, SORE THROAT Care Teams (unrecognized sec tion and content) Team Status: Active Member Role Status Dates MICHELLE Lopez Primary Care Provider Active Team Status: Inactive Member Role Status Dates MICHELLE Lopez Primary Care Provider Active Start: July 28, 2023 End: July 31, 2023 Patricio Hyde MD Admit Provide r, Attending Provider Active Start: July 28, 2023 End: July 31, 2023 Team Status: Active Member Role Status Dates MICHELLE Lopez Primary Care Provider Active Start: July 29, 2023 Patricio Hyde MD Admit Provide r, Attending Provider, Other Provider Active Start: July 29, 2023 FOR RECORDS PERTAINING TO PATIENTS WHO ARE [...] BE BASED ON THE PRIMARY CLINICAL RECORDS. [employer] [facility]. provides no warranty or guarantee of the accuracy or completeness of information in this document.
--- NOTE | 2023-08-04 09:46 | XR_ITS ---
The [address] [address] Patient Name: TC TRUJILLO MRN: [id number] date: 1990 Sex: M Assigned Patient Location: RAD Current Patient Location: RAD Accession/Order Number: [id number] Exam Date: 08/04/2023 09:40 Report Date: 08/04/2023 11:07 At the request of: MOI PACHECO Procedure: XR foreign body eye INDY Orbital x-rays for MRI clearance, 08/04/2023. HISTORY: Evaluate for metallic foreign body in orbits prior to MRI. COMPARISON: CT head without contrast, 06/16/2023. FINDINGS: AP and lateral views of the orbits obtained. There are no metallic foreign bodies identified within the orbits. Metallic plates and screws are seen in the skull from prior left parietal craniotomy. XR/XR foreign body eye INDY IMPRESSION: 1. No metallic foreign bodies in the orbits. 2. Fixation plates and screws are seen in the skull from prior craniotomy in the left parietal region. These findings would not prevent the patient from having an MRI. Electronically authenticated by: LISSA GOLDEN Date: 08/04/2023 11:07
== END 2023-08-04 09:26 | disposition home or self-care (01) ==
PROVIDERS: PCP Nurse Practitioner Family; Visit Provider Nurse Practitioner Family
DX: Z01.818 Encounter for other preprocedural examination (principal); R90.89 Other abnormal findings on diagnostic imaging of central nervous system
CPT/HCPCS: 70030; 70553; A9575

== ENCOUNTER 2024-02-16 05:55 | Emergency (ER) | payer SELFPAY ==
[2024-02-16 06:00] VITALS: BP 162/99; PULSE 84; TEMP 36.9; O2SAT 98; BMI 23.3
--- OUTSIDE RECORDS SUMMARY | 2024-02-16 06:02 | XMS_ITS | CCD ---
Author Organization [facility] Care Team Providers Care Assistant Principal Name Role Phone PHYSICIAN, DEFAULT Unavailable Unavailable PHYSICIAN, DEFAULT Unavailable Unavailable PHYSICIAN, DEFAULT Unavailable Unavailable PHYSICIAN, DEFAULT Unavailable Unavailable PAVLOCK, MAX Primary Care Unavailable JEAN CLAUDE CARIN Attending Unavailable LEXI CAR Consulting Unavailable LEXI CAR Admitting Unavailable PAVLOCK, MAX Primary Care Unavailable DAVID STANFORD Attending Unavailabl e ABDOULAYE, DAVID Consulting Unavailabl e DAVID STANFORD Admitting Unavailabl e JARAD VILLA Consulting Unavailable QI BONDS Consulting Unavailable DIANE KISER Referring Unavailable DIANE KISER Attending Unavailable DIANE KISER Admitting Unavailable JADEN LING Attending Unavailable Seble Freed Unavailable Sylvie Morales Unavailable MICHELLE Nelson Primary Care Provider MD Patricio Hyde Admit Provider MD Patricio Hyde Attending Provider [phone] Jair Gamble Attending Unavailable Patricio Hyde Admitting Unavailab Joy Cruz Primary Care Unavailable Patricio Hyde Attending Unavailab Patricio Cunningham Admitting Unavailab Joy Cruz Primary Care Unavailable Allergies Allergy Classification Reported Allergen(s) Allergy Type Date of Onset Reaction(s) Facility (1 source) bee venom Drug allergy (disorder) 10-29-2013 [facility] Repository (3 sources) Vancomycin; Translations: [VANCOMYCIN] Drug Allergy 03-22-2018 [facility] Repository (1 source) WASP VENOM PROTEIN; Translations: [WASP VENOM PROTEIN] Drug Allergy 01-09-2017 [facility] Repository (1 source) HYMENOPTERA ALLERGENIC EXTRACT; Translations: [HYMENOPTERA ALLERGENIC EXTRACT] Drug Allergy 01-09-2017 [facility] Repository (2 sources) Vancomycin Drug Allergy [employer] Other (1 source) Vancomycin Drug Allergy 12-24-2022 [facility] Repository Medications Current Medications Medication Drug Class(es) Dates Sig (Normalized) Sig (Original) amoxicillin 875 mg / clavulanate 125 mg oral tablet (1 source) Penicillin-class Antibacterial Start: 12-24-2022 take 1 tablet by mouth every twelve hours Amoxicillin-Pot Clavulanate 875-125 MG 1 tablet Orally every 12 hrs for 10 day(s) Dec, Active dextromethorphan hydrobromide 30 mg / pyrilamine maleate 30 mg oral tablet (1 source) Uncompetitive B-dycnie-S-aspartate Receptor Antagonist, Sigma-1 Agonist Start: 12-24-2022 [place] DMT 30-30 MG 1 tablet Orally every [...] oral tablet (2 sources) alpha-Adrenergic Agonist, Uncompetitive F-xvkvwf-U-aspartat e Receptor Antagonist, Sigma-1 Agonist Start: 07-14-2022 [...] Hyde on 07-29-2023 Cholesterol [Mass/Vol] 116 mg/dL Low 140-200 [facility] Comment on above: Chol less than 200 m g/dl low riskChol 201-239 mg/dl borderline riskChol 240 mg/dl and greater high risk Result Comment: Chol less than 200 mg/dl low risk Chol 201-239 mg/dl borderline risk Chol 240 mg/dl and greater high risk Performed By: #### V [id number], TSH3 wRFLX, LIPID #### [facility] [address] Cholesterol in LDL Calc [Mas s/Vol]Ordered By: Patricio Hyde on 07-29-2023 Cholesterol in LDL [Mass/Vol] 47 mg/dL 0-100 [facility] Comment on above: LDL ATP III CLASSIFI CATIONLDL less than 100 mg/dL OptimalLDL 100-129 mg/dL Near or above optimalLDL 130-159 mg/dL Borderline highLDL 160-189 mg/dL HighLDL greater than 189 mg/dL Very high Cholesterol in VLDL Calc [Ma ss/Vol]Ordered By: Patricio Hyde on 07-29-2023 Cholesterol in VLDL [Mass/Vol] 22 mg/dL [facility] Lipid Panelon 07-29-2023 LDL Cholesterol,Calculate d 47 mg/dL Normal 0-100 [facility] Comment on above: Result Comment: LDL ATP III CLASSIFICATION LDL less than 100 mg/dL Optimal LDL 100-129 mg/dL Near or above optimal LDL 130-159 mg/dL Borderline high LDL 160-189 mg/dL High LDL greater than 189 mg/dL Very high Performed By: #### V [id number], TSH3 wRFLX, LIPID #### [facility] [address] Triglyceride w/Reflex 113 mg/dL Normal 0-149 [facility] Comment on above: Result Comment: TRIG ATP III CLASSIFICATION TRIG less than 150 mg/dL Normal TRIG 150-199 mg/dL Borderline high TRIG 200-500 mg/dL High TRIG greater than 500 mg/dL Very high Standard traceable to the Center for Disease Conrtrol and Prevention (CDC) test method. Performed By: #### V [id number], TSH3 wRFLX, LIPID #### [facility] [address] VLDL CHOLESTEROL 22 mg/dL Normal [facility] Comment on above: Performed By: #### V [id number], TSH3 wRFLX, LIPID #### [facility] [address] Serum or plasma high density lipoprotein (HDL) cholesterol measurementOrdered By: Patricio Hyde on 07-29-2023 Cholesterol in HDL [Mass/Vol] 46 mg/dL Normal 23-92 [facility] Comment on above: HDL CHOL ATP-III CLA SSIFICATION Cardiovascular RiskHDL > or equal to 60 mg/dL LOWHDL < 40 mg/dL HIGH Result Comment: HDL CHOL ATP-III CLASSIFICATION Cardiovascular Risk HDL > or equal to 60 mg/dL LOW HDL < 40 mg/dL HIGH Performed By: #### V [id number], TSH3 wRFLX, LIPID #### [facility] [address] Serum or plasma total choles terol/high density lipoprotein (HDL) cholesterol mass ratOrdered By: Patricio Hyde on 07-29-2023 Cholesterol.total/Cho lesterol in HDL [Mass ratio] 2.5 {ratio} Normal <5.0 [facility] Comment on above: Performed By: #### V [id number], TSH3 wRFLX, LIPID #### [facility] [address] Thyroid Stim Hormone w/Rflxo n 07-29-2023 Thyroid Stim Hormone w/Rflx 0.64 u[iU]/mL Normal 0.45-5.33 [facility] Comment on above: Performed By: #### V [id number], TSH3 wRFLX, LIPID #### [facility] [address] Thyrotropin [Units/volume] i n Serum or PlasmaOrdered By: Patricio Hyde on 07-29-2023 TSH Qn 0.64 m[IU]/L 0.45-5.33 [facility] Triglyceride [Mass/volume] i n Serum or PlasmaOrdered By: Patricio Hyde on 07-29-2023 Triglyceride [Mass/Vol] 113 mg/dL 0-149 [facility] Comment on above: TRIG ATP III CLASSIF ICATIONTRIG less than 150 mg/dL NormalTRIG 150-199 mg/dL Borderline highTRIG 200-500 mg/dL High TRIG greater than 500 mg/dL Very highStandard traceable to the Center for Disease Conrtrol and Prevention (CDC) test method. Vitamin D 25 Hydroxy Totalon 07-29-2023 Vitamin D 25 Hydroxy Total 30.7 ng/mL Normal 30-100 [facility] Comment on above: Result Comment: MÓNICA MIN D STATUS 25(OH)VITAMIN D RANGE (ng/mL) Deficient <20 Insufficient 20 to <30 Sufficient 30 to 100 Reference: Leo MF,Marlo NC, Chayito TIERNEY, et al. Evaluation,treatment, and prevention of vitamin D deficiency; an Endocrine Society clinical practice guideline. JCEM. 2010; 96(7):1911-30. PERFORMED BY: [place] [address] PATHOLOGIST CHEF UNDER LAWRENCE LORENZ M.D. Performed By: #### V [id number], TSH3 wRFLX, LIPID #### [address] Vitamin D+Metabolites [Mass/ volume] in Serum or PlasmaOrdered By: Patricio Hyde on 07-29-2023 Vitamin D+Metabolites [Mass/Vol] 30.7 ng/mL 30-100 [facility] Comment on above: VITAMIN D STATUS 25( [place])VITAMIN D RANGE (ng/mL) Deficient <20 Insufficient 20 to <30Sufficient 30 to 100Reference: Leo MF,Marlo BERMUDEZ, Chayito TIERNEY, et al. Evaluation,treatment, and prevention of vitamin D deficiency; an Endocrine Society clinical practice guideline. JCEM. 2010; 96(7):1911-30. COVID + FLU Quick Testingon 12-24-2022 SARS-CoV-2 (COVID-19) RNA ANALILIA+probe Ql (Unsp spec) Negative [employer] Other COVID + FLU Quick Testing Negative [employer] Other COVID + FLU Quick Testingon 07-14-2022 SARS-CoV-2 (COVID-19) RNA ANALILIA+probe Ql (Unsp spec) negtive [employer] Other COVID + FLU Quick Testing Negative [employer] Other Quick Strepon 07-14-2022 S. pyogenes Org specific cx Ql (Throat) neative [employer] Other Quick Strep [employer] Other EDNURSon 02-27-2022 EDNURS Pt c/o vomiting, headache, cough, sore throat x3 days. 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 Normal [facility] EDPROVon 02-27-2022 EDPROV HPI Chief [...] Attestion Jaden Ling MD 03/05/22 0812 Normal [facility] BNPon 05-03-2020 Natriuretic peptide B (Bld) [Mass/Vol] 26.0 pg/mL Normal <=450.0 [facility] Comment on above: Performed By: #### P TT, PT #### [facility] [address] [place], [place] [address] Lelia Dawn CBC AUTO DIFFon 05-03-2020 Basophils (Bld) [#/Vol] 0.0 103/ul Normal 0.0-0.1 [facility] Comment on above: Performed By: #### C BC #### [facility] [address] [place], [place] [address] Lelia Nereyda Basophils/100 WBC (Bld) 0.6 % Normal 0.2-2.0 [facility] Comment on above: Performed By: #### C BC #### [facility] [address] [place] [address] Lelia Nereyda Eosinophils (Bld) [#/Vol] 0.5 103/ul Normal 0.0-0.7 [facility] Comment on above: Performed By: #### C BC #### [facility] [address] [place] [address] Lelia Nereyda Eosinophils/100 WBC (Bld) 7.9 % Critically high 0.9-7.0 [facility] Comment on above: Performed By: #### C BC #### [facility] [address] [place] [address] Lelia Nereyda Erythrocyte distribution width (RBC) [Ratio] 12.9 % Normal 11.0-15.0 [facility] Comment on above: Performed By: #### C BC #### [facility] [address] [place] [address] Lelia Nereyda Hematocrit (Bld) [Volume fraction] 44.1 % Normal 42.0-54.0 [facility] Comment on above: Performed By: #### C BC #### [facility] [address] [place] [address] Lelia Nereyda Hemoglobin (Bld) [Mass/Vol] 14.5 g/dL Normal 14.0-18.0 [facility] Comment on above: Performed By: #### C BC #### [facility] [address] [place] [address] Lelai Nereyda IG # 0.01 10e3/ul Normal 0.00-0.03 [facility] Comment on above: Performed By: #### C BC #### [facility] [address] [place] [address] Lelia Nereyda IG % 0.1 % Normal 0.0-0.5 [facility] Comment on above: Performed By: #### C BC #### [facility] [address] [place] [address] Lelia Nereyda Lymphocytes (Bld) [#/Vol] 1.7 103/ul Normal 1.2-3.8 [facility] Comment on above: Performed By: #### C BC #### [facility] [address] [place], [place] [address] Lelia Nereyda Lymphocytes/100 WBC (Bld) 24.1 % Normal 20.5-60.0 [facility] Comment on above: Performed By: #### C BC #### [facility] [address] [place], [place] [address] Lelia Nereyda MANUAL DIFF REQ NO Normal [facility] Comment on above: Performed By: #### C BC #### [facility] [address] [place], [place] [address] Lelia Nereyda MCH (RBC) [Entitic mass] 28.6 pg Normal 25.9-34.0 [facility] Comment on above: Performed By: #### C BC #### [facility] [address] [place], [place] [address] Lelia Nereyda MCHC (RBC) [Mass/Vol] 32.9 g/dL Normal 29.9-35.2 [facility] Comment on above: Performed By: #### C BC #### [facility] [address] [place], [place] [address] Lelia Nereyda MCV (RBC) [Entitic vol] 87.0 fL Normal 80.0-94.0 [facility] Comment on above: Performed By: #### C BC #### [facility] [address] [place], [place] [address] Lelia Nereyda Monocytes (Bld) [#/Vol] 0.7 103/ul Normal 0.3-0.8 [facility] Comment on above: Performed By: #### C BC #### [facility] [address] [place], [place] [address] Lelia Nereyda Monocytes/100 WBC (Bld) 10.4 % Normal 1.7-12.0 [facility] Comment on above: Performed By: #### C BC #### [facility] [address] [place], [place] [address] Lelia Nereyda Neutrophils (Bld) [#/Vol] 3.9 103/ul Normal 1.4-6.5 [facility] Comment on above: Performed By: #### C BC #### [facility] [address] [place], [place] [address] Leliadeisi Dawn Neutrophils/100 WBC (Bld) 56.9 % Normal 43.0-75.0 [facility] Comment on above: Performed By: #### C BC #### [facility] [address] [place], [place] [address] Leliadeisi Fungen Platelet mean volume (Bld) [Entitic vol] 8.8 fL Critically low 9.5-13.5 [facility] Comment on above: Performed By: #### C BC #### [facility] [address] [place], [place] [address] Lelia Nereyda Platelets (Bld) [#/Vol] 280 103/ul Normal 150-450 [facility] Comment on above: Performed By: #### C BC #### [facility] [address] [place], [place] [address] Lelia Nereyda RBC (Bld) [#/Vol] 5.07 106/ul Normal 4.70-6.10 [facility] Comment on above: Performed By: #### C BC #### [facility] [address] [place], [place] [address] Leliadeisi Dawn WBC (Bld) [#/Vol] 6.8 103/ul Normal 4.0-11.0 [facility] Comment on above: Performed By: #### C BC #### [facility] [address] [place], [place] [address] Lelia Nereyda ER URINE PROFILEon 1 Bilirubin [Mass/Vol] Negative Normal NEGATIVE [facility] Comment on above: Performed By: #### E RUR #### [facility] [address] [place], [place] [address] Lelia Nereyda BLOOD Negative Normal NEGATIVE [facility] Comment on above: Performed By: #### E RUR #### [facility] [address] [place], [place] [address] Lelia Nereyda Clarity (U) CLEAR Normal CLEAR [facility] Comment on above: Performed By: #### E RUR #### [facility] [address] [place] [address] Lelia Nereyda Color (U) YELLOW Normal YELLOW [facility] Comment on above: Performed By: #### E RUR #### [facility] [address] [place], [place] [address] Lelia Nereyda ERUAHD A micrscopic examination will be performed if indicated. Normal [facility] Comment on above: Performed By: #### E RUR #### [facility] [address] [place] [address] Lelia Nereyda Glucose [Mass/Vol] Negative Normal NEGATIVE [facility] Comment on above: Performed By: #### E RUR #### [facility] [address] [place] [address] Lelia Nereyda Ketones Ql (U) Negative Normal NEGATIVE [facility] Comment on above: Performed By: #### E RUR #### [facility] [address] [place] [address] Lelia Nereyda Nitrite Ql (U) Negative Normal NEGATIVE [facility] Comment on above: Performed By: #### E RUR #### [facility] [address] [place] [address] Lelia Nereyda pH (Bld) 6.5 Normal 5-9 [facility] Comment on above: Performed By: #### E RUR #### [facility] [address] [place] [address] Lelia Nereyda Protein (U) [Mass/Vol] Negative Normal NEGATIVE/ TRACE [facility] Comment on above: Performed By: #### E RUR #### [facility] [address] [place] [address] Lelia Nereyda SPEC GRAVITY 1.025 Normal 1.005-<=1.02 5 [facility] Comment on above: Performed By: #### E RUR #### [facility] [address] [place] [address] Lelia Nereyda UR MICRO IND NOT INDICATED Normal [facility] Comment on above: Performed By: #### E RUR #### [facility] [address] [place], [place] [address] Leliadeisi Dawn Urobilinogen Qn (U) 1.0 EU/dl Normal 0.2 - 1.0 [facility] Comment on above: Performed By: #### E RUR #### [facility] [address] [place] [address] Lelia Nereyda WBC (Bld) [#/Vol] Negative Normal NEGATIVE [facility] Comment on above: Performed By: #### E RUR #### [facility] [address] [place] [address] Lelia Dawn PROF 14(COMP METB)on 021 Albumin [Mass/Vol] 3.8 g/dL Normal 3.5-5.[address] [facility] Comment on above: Performed By: #### P TT, PT #### [facility] [address] [place], [place] [address] Lelia Dawn Albumin/Globulin [Mass ratio] 1.4 {ratio} Normal [facility] Comment on above: Performed By: #### P TT, PT #### [facility] [address] [place], [place] [address] Lelia Nereyda ALP [Catalytic activity/Vol] 97 U/L Normal 38-126 [facility] Comment on above: Performed By: #### P TT, PT #### [facility] [address] [place], [place] [address] Lelia Dawn ALT [Catalytic activity/Vol] 24 U/L Normal 21-72 [facility] Comment on above: Performed By: #### P TT, PT #### [facility] [address] [place] [address] Lelia Nereyda Anion gap [Moles/Vol] 8.7 mmol/L Normal [facility] Comment on above: Performed By: #### P TT, PT #### [facility] [address] [place], [place] [address] Lelia Nereyda AST [Catalytic activity/Vol] 18 U/L Normal 17-59 [facility] Comment on above: Performed By: #### P TT, PT #### [facility] [address] [place] [id number] Lelia Nereyda Bilirubin Ql (U) 0.4 mg/dL Normal 0.2-1.3 [facility] Comment on above: Performed By: #### P TT, PT #### [facility] [address] [place] [id number] Lelia Nereyda Calcium [Mass/Vol] 8.8 mg/dL Normal 8.4-10.2 [facility] Comment on above: Performed By: #### P TT, PT #### [facility] [address] [place] [id number] Lelia Nereyda Chloride [Moles/Vol] 106 mmol/L Normal 98-107 [facility] Comment on above: Performed By: #### P TT, PT #### [facility] [address] [place] [address] Lelia Nereyda CO2 [Moles/Vol] 31.2 mmol/L Critically high 22.0-30.0 [facility] Comment on above: Performed By: #### P TT, PT #### [facility] [address] [place] [address] Lelia Nereyda Creatinine [Mass/Vol] 1.00 mg/dL Normal 0.66-1.25 [facility] Comment on above: Performed By: #### P TT, PT #### [facility] [address] [place], [place] [address] Lelia Nereyda EGFR-AF BARBADIAN >60 Normal >=60 [facility] Comment on above: Performed By: #### P TT, PT #### [facility] [address] [place], [place] [address] Lelia Nereyda EGFR-NON AF BARBADIAN >60 Normal >=60 [facility] Comment on above: Performed By: #### P TT, PT #### [facility] [address] [place], [place] [address] Lelia Nereyda Globulin (S) [Mass/Vol] 2.7 g/dL Normal [facility] Comment on above: Performed By: #### P TT, PT #### [facility] [address] [place] [address] Lelia Nereyda Glucose [Mass/Vol] 101 mg/dL Normal 74-106 [facility] Comment on above: Performed By: #### P TT, PT #### [facility] [address] [place] [id number] Lelia Nereyda Potassium [Moles/Vol] 3.9 mmol/L Normal 3.4-5.0 [facility] Comment on above: Performed By: #### P TT, PT #### [facility] [address] [place] [address] Lelia Nereyda Protein [Mass/Vol] 6.5 g/dL Normal 6.1-8.[address] [facility] Comment on above: Performed By: #### P TT, PT #### [facility] [address] [place] [address] Lelia Nereyda Sodium [Moles/Vol] 142 mmol/L Normal 137-[address] [facility] Comment on above: Performed By: #### P TT, PT #### [facility] [address] [place] [address] Lelia Nereyda Urea nitrogen [Mass/Vol] 17.0 mg/dL Normal 9.0-20.0 [facility] Comment on above: Performed By: #### P TT, PT #### [facility] [address] [place], [place] [address] Lelia Nereyda Urea nitrogen/Creatinine [Mass ratio] 17.0 mg/mg Normal [facility] Comment on above: Performed By: #### P TT, PT #### [facility] [address] [place], [place] [address] Lelia Nereyda PROTIMEon 05-03-2020 INR Coag (PPP) [Relative time] 1.03 {INR} Normal [facility] Comment on above: Performed By: #### P TT, PT #### [facility] [address] [place], [place] [address] Lelia Nereyda PT Coag (PPP) [Time] SEE BELOW Normal [facility] Comment on above: Result Comment: MARCO RED INR: 2.0 - 3.0 CONDITIONS NOT LISTED BELOW 2.5 - 3.5 FOR PROSTHETIC HEART VALVE REPLACEMENT 2.5 - 3.5 RECURRENT THROMBOSIS Performed By: #### P TT, PT #### [facility] [address] [place], [place] [address] Lelia Dawn PT Coag (PPP) [Time] 11.2 s Normal 9.0-11.6 [facility] Comment on above: Performed By: #### P TT, PT #### [facility] [address] [place], [place] [address] Lelia Dawn PTTon 05-03-2020 aPTT Coag (Bld) [Time] 25.6 s Normal 22.3-36.2 [facility] Comment on above: Performed By: #### P TT, PT #### [facility] [address] [place], [place] [address] Lelia Dawn CBC AUTO DIFFon 09-10-2019 Basophils (Bld) [#/Vol] 0.0 103/ul Normal 0.0-0.1 [facility] Comment on above: Performed By: #### C BC #### [facility] [address] [place], [place] [address] Lelia Dawn Basophils/100 WBC (Bld) 0.4 % Normal 0.2-2.0 [facility] Comment on above: Performed By: #### C BC #### [facility] [address] [place], [place] [address] Lelia Nreeyda Eosinophils (Bld) [#/Vol] 0.2 103/ul Normal 0.0-0.7 [facility] Comment on above: Performed By: #### C BC #### [facility] [address] [place], [place] [address] Lelia Dawn Eosinophils/100 WBC (Bld) 3.2 % Normal 0.9-7.0 [facility] Comment on above: Performed By: #### C BC #### [facility] [address] [place], [place] [address] Lelia Nereyda Erythrocyte distribution width (RBC) [Ratio] 12.4 % Normal 11.0-15.0 [facility] Comment on above: Performed By: #### C BC #### [facility] [address] [place] [address] Lelia Nereyda Hematocrit (Bld) [Volume fraction] 41.3 % Critically low 42.0-54.0 [facility] Comment on above: Performed By: #### C BC #### [facility] [address] [place], [place] [address] Lelia Nereyda Hemoglobin (Bld) [Mass/Vol] 13.8 g/dL Critically low 14.0-18.0 [facility] Comment on above: Performed By: #### C BC #### [facility] [address] [place], [place] [address] Lelia Nereyda IG # 0.02 10e3/ul Normal 0.00-0.03 [facility] Comment on above: Performed By: #### C BC #### [facility] [address] [place] [address] Lelia Nereyda IG % 0.3 % Normal 0.0-0.5 [facility] Comment on above: Performed By: #### C BC #### [facility] [address] [place], [place] [address] Lelia Nereyda Lymphocytes (Bld) [#/Vol] 1.6 103/ul Normal 1.2-3.8 [facility] Comment on above: Performed By: #### C BC #### [facility] [address] [place], [place] [address] Lelia Nereyda Lymphocytes/100 WBC (Bld) 21.6 % Normal 20.5-60.0 [facility] Comment on above: Performed By: #### C BC #### [facility] [address] [place] [id number] Lelia Dawn MANUAL DIFF REQ NO Normal [facility] Comment on above: Performed By: #### C BC #### [facility] [address] [place], [place] [id number] Lelia Nereyda MCH (RBC) [Entitic mass] 28.7 pg Normal 25.9-34.0 [facility] Comment on above: Performed By: #### C BC #### [facility] [address] [place], [place] [id number] Lelia Nereyda MCHC (RBC) [Mass/Vol] 33.4 g/dL Normal 29.9-35.2 [facility] Comment on above: Performed By: #### C BC #### [facility] [address] [place], [place] [address] Leliadeisi Dawn MCV (RBC) [Entitic vol] 85.9 fL Normal 80.0-94.0 [facility] Comment on above: Performed By: #### C BC #### [facility] [address] [place], [place] [address] Lelia Nereyda Monocytes (Bld) [#/Vol] 0.5 103/ul Normal 0.3-0.8 [facility] Comment on above: Performed By: #### C BC #### [facility] [address] [place], [place] [address] Lelia Nereyda Monocytes/100 WBC (Bld) 6.9 % Normal 1.7-12.0 [facility] Comment on above: Performed By: #### C BC #### [facility] [address] [place], [place] [address] Lelia Nereyda Neutrophils (Bld) [#/Vol] 5.0 103/ul Normal 1.4-6.5 [facility] Comment on above: Performed By: #### C BC #### [facility] [address] [place], [place] [address] Lelia Nereyda Neutrophils/100 WBC (Bld) 67.6 % Normal 43.0-75.0 [facility] Comment on above: Performed By: #### C BC #### [facility] [address] [place] [address] Lelia Nereyda Platelet mean volume (Bld) [Entitic vol] 8.5 fL Critically low 9.5-13.5 [facility] Comment on above: Performed By: #### C BC #### [facility] [address] [place], [place] [address] Lelia Nereyda Platelets (Bld) [#/Vol] 287 103/ul Normal 150-450 [facility] Comment on above: Performed By: #### C BC #### [facility] [address] [place], [place] [address] Lelia Dawn RBC (Bld) [#/Vol] 4.81 106/ul Normal 4.70-6.[address] [facility] Comment on above: Performed By: #### C BC #### [facility] [address] [place], [place] [address] Lelia Dawn WBC (Bld) [#/Vol] 7.4 103/ul Normal 4.0-11.0 [facility] Comment on above: Performed By: #### C BC #### [facility] [address] [place], [place] [address] HEAD WO CONon 09-10-2019 [...] by: JARAD VILLA Date: 2019-09-10 21:33 Normal [facility] LACTATE/LACTIC ACIDon 2019 Lactate [Moles/Vol] 1.3 mmol/L Normal 0.7-2.0 [facility] Comment on above: Performed By: #### L ACT #### [facility] [address] [place], [place] [address] Lelia Nereyda PROF CHEM 8 (BAS METB)on Anion gap [Moles/Vol] 8.8 mmol/L Normal [facility] Comment on above: Performed By: #### P TT, PT #### [facility] [address] [place] [address] Lelia Nereyda Calcium [Mass/Vol] 8.6 mg/dL Normal 8.4-10.[address] [facility] Comment on above: Performed By: #### P TT, PT #### [facility] [address] [place] [address] Lelia Nereyda Chloride [Moles/Vol] 106 mmol/L Normal 98-107 [facility] Comment on above: Performed By: #### P TT, PT #### [facility] [address] [place] [address] Lelia Nereyda CO2 [Moles/Vol] 31.8 mmol/L Critically high 22.0-30.0 [facility] Comment on above: Performed By: #### P TT, PT #### [facility] [address] [place] [address] Lelia Nereyda Creatinine [Mass/Vol] 1.12 mg/dL Normal 0.66-1.25 [facility] Comment on above: Performed By: #### P TT, PT #### [facility] [address] [place], [place] [address] Lelia Nereyda EGFR-AF BARBADIAN >60 Normal >=60 [facility] Comment on above: Performed By: #### P TT, PT #### [facility] [address] [place], [place] [address] Lelia Nereyda EGFR-NON AF BARBADIAN >60 Normal >=60 [facility] Comment on above: Performed By: #### P TT, PT #### [facility] [address] [place], [place] [address] Lelia Nereyda Glucose [Mass/Vol] 119 mg/dL Critically high 74-106 [facility] Comment on above: Performed By: #### P TT, PT #### [facility] [address] [place] [address] Lelia Nereyda Potassium [Moles/Vol] 3.6 mmol/L Normal 3.4-5.0 [facility] Comment on above: Performed By: #### P TT, PT #### [facility] [address] [place] [address] Lelia Nereyda Sodium [Moles/Vol] 143 mmol/L Normal 137-[address] [facility] Comment on above: Performed By: #### P TT, PT #### [facility] [address] [place] [address] Lelia Nereyda Urea nitrogen [Mass/Vol] 12.0 mg/dL Normal 9.0-20.0 [facility] Comment on above: Performed By: #### P TT, PT #### [facility] [address] [place] [address] Lelia Nereyda Urea nitrogen/Creatinine [Mass ratio] 10.7 mg/mg Normal [facility] Comment on above: Performed By: #### P TT, PT #### [facility] [address] [place] [address] Leliadeisi Dawn TROPONIN - Ion 09-10-2019 Troponin I.cardiac [Mass/Vol] SEE BELOW Normal [facility] Comment on above: Result Comment: <0.0 34 ng/ml NEGATIVE 0.034-0.119 INDETERMINATE 0.120 AMI CUT OFF Performed By: #### B MP, TROP #### [facility] [address] [place], [place] [address] Lelia Nereyda Troponin I.cardiac [Mass/Vol] ng/mL Normal <=0.034 [facility] Comment on above: Performed By: #### B MP, TROP #### [facility] [address] [place], [place] [address] Lelia Nereyda XR CHEST 1 Von 09-10-2019 [...] by: QI BONDS Date: 2019-09-10 21:38 Normal [facility] Vital Signs Date Time Vital Sign Value Performing Clinician Facility 07-31-2023 08:32-0400 Body weight 61.5 kg PLANNING SPECIALIST-C Joy Nelson Work Phone: [facility] 07-31-2023 07:30-0400 Body temperature 98.1 [degF] PLANNING SPECIALIST-C Joy Nelson Work Phone: [facility] 07-31-2023 07:30-0400 Diastolic blood pressure 72 mm[Hg] PLANNING SPECIALIST-C Joy Nelson Work Phone: [facility] 07-31-2023 07:30-0400 Heart rate 88 /min PLANNING SPECIALIST-C Joy Nelson Work Phone: [facility] 07-31-2023 07:30-0400 Respiratory rate 18 /min PLANNING SPECIALIST-C Joy Nelson Work Phone: [facility] 07-31-2023 07:30-0400 SaO2% (BldA) [Mass fraction] 99 % PLANNING SPECIALIST-C Joy Nelson Work Phone: [facility] 07-31-2023 07:30-0400 Systolic blood pressure 125 mm[Hg] PLANNING SPECIALIST-C Joy Nelson Work Phone: [facility] 07-28-2023 21:52-0400 Body height 172.72 cm PLANNING SPECIALIST-C Joy Nelson Work Phone: [facility] 12-24-2022 14:05-0400 Body height 175.26 cm Sylvie Morales Other [employer] [employer] Other 12-24-2022 14:05-0400 Body mass index (BMI) [Ratio] 20.7 kg/m2 Sylvie Optony Other [facility] Other 12-24-2022 14:05-0400 Body temperature 98.3 [degF] Sylvie Morales Other [employer] [employer] Other 12-24-2022 14:05-0400 Body weight 63.59 kg Sylvie Morales Other [employer] Other 12-24-2022 14:05-0400 Respiratory rate 18 /min Sylvie Morales Other [employer] Other 12-24-2022 14:05-0400 SaO2% (BldA) [Mass fraction] 97 % Sylvie Morales Other [employer] Other 07-14-2022 12:45-0400 Body height 175.26 cm Seble Freed Other [employer] Other 07-14-2022 12:45-0400 Body mass index (BMI) [Ratio] 20.08 kg/m2 Seble Freed Other [employer] Other 07-14-2022 12:45-0400 Body temperature 99.1 [degF] Seble Freed Other [employer] Other 07-14-2022 12:45-0400 Body weight 61.69 kg Seble Freed Other [employer] Other 07-14-2022 12:45-0400 Respiratory rate 18 /min Seble Freed Other [employer] Other 07-14-2022 12:45-0400 SaO2% (BldA) [Mass fraction] 98 % Seble Freed Other [employer] Other Encounters Encounter Date Encounter Type Care Provider Facility Start: 07-29-2023 Non-patient / Non-visit PLANNING SPECIALIST-C Joy Nelson Work Phone: [facility] Work Phone: Start: 07-28-2023 End: 07-31-2023 Evaluation and management of inpatient PLANNING SPECIALIST-C Joy Nelson Work Phone: [facility] Work Phone: Start: 07-28-2023 ambulatory Patricio Holman acility:[facility] Start: 12-24-2022 End: 12-24-2022 ambulatory Sylvie Morales Other [employer] Other Start: 12-24-2022 Office outpatient visit 15 minutes Sylvie Morales [facility] Start: 07-14-2022 End: 07-14-2022 ambulatory Seble Freed Other [employer] [employer] Other Start: 07-14-2022 Office outpatient visit 25 minutes Seble Freed [facility] Start: 02-27-2022 End: 02-27-2022 Emergency department patient visit [facility] Start: 05-03-2020 End: 05-03-2020 Patient encounter procedure MAX PAVLOCK Facility:[facility] Start: 09-10-2019 End: 09-11-2019 Patient encounter procedure MAX PAVLOCK Facility: Start: 03-29-2018 End: 03-29-2018 ambulatory DIANE KISER Facility:[facility] Start: 01-30-2017 End: 01-31-2017 Ambulatory DEFAULT PHYSICIAN Facility:[facility] Start: 01-11-2017 End: 01-12-2017 Ambulatory DEFAULT PHYSICIAN Facility:[facility] Procedures Date Procedure Procedure Detail Performing Clinician Start: 09-10-2019 End: 09-10-2019 Microscopic examination of blood, culture ABHIJEET NASH Comment on above: Performed By: #### B LDCX2 #### [facility] [address], [place] [address] Lelia Dawn Performed By: #### P TT, PT #### [facility] [address] [place], [place] [address] Lelia Dawn Start: 03-29-2018 alveoloplasty in con junction with extractions - four or more teeth or tooth spaces, per quadrant DIANE KISER Start: 03-29-2018 extraction, erupted tooth or exposed root (elevation and/or forceps removal) DIANE KISER Start: 03-29-2018 removal of impacted tooth - partially bony DIANE KISER Plan of Treatment Date Care Activity Detail Author Start: 07-31-2023 [facility] Start: 07-28-2023 Referral to [facility] Start: 07-28-2023 Hospital admission [facility] Patient Education Depression, Ad ult (ÓSCAR) Suicide Prevention [facility] DC Instructions Know your Meds [facility] Work Phone: Patient referral [facility] Work Phone: Payers Date Payer Category Payer Self-pay 2023 Unknown [id number] 2022 Medicaid [id number] 2017 Medicaid [id number] 1990 Unknown [id number] 1990 Unknown [id number] 1990 Unknown [id number] [id number] 1959 Self-pay [id number] Unknown Unknown [id number] 2.16.8 [id number] Unknown [id number] [id number] [id number] Social History Date Type Detail Facility Unknown if ever smoked [employer] Other Sex Assigned At Sex Assigned At Bir th [facility] [employer] Other Start: 07-29-2023 Tobacco smoking status NHIS Smoker (finding) [facility] Start: 1990 Sex Assigned At Male F [facility] Goals Date Patient Goal Desired Activity /State Functional Status Date Assessment Result Facility 07-31-2023 Functional status Patient at Baseline [facility] Work Phone: 07-28-2023 Functional status Disability Sta tus Patient Not at Baseline [facility] Work Phone: Mental Status Date Assessment Result Facility 07-31-2023 Cognitive function Cognitive Sta tus Patient at Baseline [facility] Work Phone: Hospital Discharge instructions 07-31-2023 Note Date & Type Note Facility 07-31-2023 Hospital Discharg e instructions Additional Instructions Important Contact Information You can call [facility] Inpatient [facility] at [phone] any time day or night if you have emergent questions or question regarding discharge instructions. If at any time you are feeling an increase in your psychiatric symptoms, call your physician or behavioral healthcare provider. If any time you have thoughts of harming yourself or others contact one of the following: Call 98-8 (available 26/09) Crisis Text Line (available 26/09) text 4HOPE to [phone] [facility] Hope Line (available 8 a.m. Midnight) call [phone]) Regular Diet No Activity Restrictions [facility] Work Phone: Progress note 07-30-2023 Note Date & Type Note Facility 07-30-2023 Progress note Note Date/Time July 30, 2023 6:35am [facility] [address] [place] [address] Psychiatry Progress Note Signed Patient: Peterson Duran MR#: [id number] : 1990 Acct:[id number] Age/Sex: 32 / M Adm Date: 4 Loc: 1S Room: [address] [place] [address] Type : ADM IN Attending Dr: Patricio [...] themain stressor. 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 He does not want to goto rehab. He likes outpatient treatment. He understands that he needs to report to his hearing officer I need to give her a [...] signed by Patricio Hyde MD> 07/30/23 0636 [facility] Work Phone: History and physical note 07-29-2023 Note Date & Type Note Facility 07-29-2023 History and physi colton note Note Date/Time July 29, 2023 6:38pm [facility] [address] [place] [address] Psychiatry H&P Signed Patient: Peterson Duran MR#: [id number] : 1990 Acct:[id number] Age/Sex: 32 / M Adm Date: 4 Loc: Room: [address] [place] [address] Type: ADM IN Attending Dr: Patricio Hyde [...] Reportedly, patient presents to the ER in [place] with depression and suicidal ideation. Patient was [...] states he has an MRI scheduled at [facility] for a spot on his brain. States [...] homicidality, reported suicidality Ins[employer]: fair Judgment: fair [facility] Medical History (Updated 07/29/23 @ 07:58 by Abhijeet Michael) Necrosis Brain lesion Surgical History (Updated 07/28/23 @ 21:51 by Tierra Hurtado, BUNNY) History of tonsillectomy H/O brain surgery Family History (Updated 07/28/23 @ 21:51 by Tierra Hurtado, BUNNY) Other No significant family history Social History [...] Depression with suicidal ideation: Plan Admit to 1S for management of depression and to ensure [...] <Electronically signed by Patricio Hyde MD> 07/29/23 8328 [facility] Work Phone: Evaluation note 12-24-2022 Note [...] if s/s persists or worsens despite treatment. [employer] Other Evaluation note 07-14-2022 Note Date & [...] condition. July, Sore throat (ICD-10 - J02.9) [employer] Other Evaluation note Note Date & Type Note Facility Evaluation note Diagnosis Onset Date Depression with suicidal ideation [facility] Work Phone: History general Narrative - Reported Note Date & Type Note Facility History general Narrative - Reported Type Medical History Brain lesion Medical History Pulmonary embolism Medical History Drug abuse and dependence Surgical History brain surgery Surgical History tonsillectomy Hospitalization History see above [employer] Other Summary Purpose Family History No Family [...] and content) DATE CREATED AUTHOR 08/29/2017 [facility] DATE CREATED AUTHOR AUTHOR'S ORGANIZ ATION 05/06/2020 [facility] DATE CREATED AUTHOR AUTHOR'S ORGANIZ ATION 03/29/2021 [facility] DATE CREATED AUTHOR AUTHOR'S ORGANIZ ATION 03/05/2022 [facility] DATE CREATED AUTHOR AUTHOR'S ORGANIZ ATION 09/23/2023 [facility] REASON FOR VISIT (unrecogniz ed [...] BE BASED ON THE PRIMARY CLINICAL RECORDS. [employer] provides no warranty or guarantee of the accuracy or completeness of information in this document.
--- NOTE | 2024-02-16 06:40 | XR_ITS ---
[address] [address] Patient Name: TC TRUJILLO MRN: [id number] date: 1990 Sex: M Assigned Patient Location: ER Current Patient Location: ER Accession/Order Number: [id number] Exam Date: 02/16/2024 07:55 Report Date: 02/16/2024 08:05 At the request of: ZACHARY MARKER Procedure: XR chest 2V EXAMINATION: XR chest 2V HISTORY: shaking COMPARISON: No relevant comparison available. TECHNIQUE: PA and lateral FINDINGS: LUNGS: No significant pulmonary parenchymal abnormalities. VASCULATURE: No increased pulmonary vasculature. PLEURA: No pneumothorax, effusion, or pleural thickening. CARDIAC: No cardiomegaly or cardiac silhouette abnormality. MEDIASTINUM: No visible mass or adenopathy. BONES: No fracture or visible bone lesion. OTHER: Negative. XR/XR chest 2V IMPRESSION: No acute cardiopulmonary process Electronically authenticated by: CARMEN ESPINOZA Date: 02/16/2024 08:05
--- NOTE | 2024-02-16 06:40 | CT_ITS ---
The [address] [address] Patient Name: TC TRUJILLO MRN: [id number] date: 1990 Sex: M Assigned Patient Location: ER Current Patient Location: ER Accession/Order Number: [id number] Exam Date: 02/16/2024 07:45 Report Date: 02/16/2024 08:30 At the request of: ZACHARY MARKER Procedure: CT head/brain wo/w con \EXAMINATION: CT head/brain wo/w con HISTORY: hx strep related brain lesions COMPARISON: No relevant comparison available. TECHNIQUE: Axial images were obtained without and with IV contrast. Dose reduction techniques were achieved by using automated exposure control and/or adjustment of mA and/or kV according to patient size and/or use of iterative reconstruction technique. FINDINGS: BRAIN: No edema, hemorrhage, mass, acute infarction, or inappropriate atrophy. CSF SPACES: No hydrocephalus, subarachnoid hemorrhage, or mass. Appropriate for age. SKULL: No fracture, mass, or other significant visible lesion. Remote left parietal craniotomy SINUSES: No significant mucosal thickening or fluid on the limited views. ORBITS: No appreciable abnormality on the limited views. OTHER: Negative CT/CT head/brain wo/w con IMPRESSION: No acute intracranial abnormality Electronically authenticated by: CARMEN ESPINOZA Date: 02/16/2024 08:30
--- NOTE | 2024-02-16 06:43 | ED_ITS ---
HPI HPI - General Adult General Chief complaint: Weakness Stated complaint: GENERAL WEAKNESS Time Seen by Provider: 02/16/24 06:01 Source: patient Mode of arrival: walk-in Limitations: no limitations History of Present Illness HPI narrative: This 33-year-old male presents for evaluation of multiple complaints. The patient states he is having a buzzing sensation in his body and feels dizzy like he is going to pass out. He states that he feels similar to when he had a brain infection in 2017. He states that he had a strep infection in his brain. He was transferred from this facility to [facility] [place] where they found 7 lesions in his brain and also a mass in his chest. He states he had an endoscopy or bronchoscopy but they never biopsied the mass in his chest. He states since that time the mass in his chest has resolved as far as he knows. He states that he was with his mother last night in [facility] and started feeling dizzy like he might pass out. He is now shaking and tremulous. He does have a history of substance abuse and admits to ongoing use of fentanyl. He states he knows that he is not in withdrawal because he used fentanyl before coming in. He does not have any neck pain or stiffness. He has not had a fever. He has no abdominal pain nausea or vomiting. He also states that he is urinating excessively. He does not have a history of diabetes. 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 He is concerned that he may have tetanus. He planes of jaw pain but does not appear to have any jaw stiffness or bruxism. Related Data Home Medications ?Medication ?Instructions ?Recorded ?Confirmed No Known Home Medications 02/16/24 02/16/24 Allergies Allergy/AdvReac Type Severity Reaction Status Date / Time vancomycin AdvReac Severe Redness of Verified 02/16/24 06:04 Skin Opioid HPI Opioid Management Most Recent Opioid Data: Last Pain Scale 8 07/17/23 21:03 07/17/23 Ur Phencyclidine Scrn Negative (NEGATIVE) 02/16/24 06:50 02/03 05/27 Review of Systems ROS Status of ROS 10 or more systems reviewed and unremark able except as noted in history and below PFSH PFSH Social History Smoking status: Current every day smoker Little interest or pleasure in doing things: not at all Feeling down, depressed, or hopeless: not at all Exam Narrative Exam Narrative: Vital signs and Nursing Notes reviewed: Is afebrile with a normal pulse, blood pressure is elevated at 160/99, he is not hypoxic with pulse ox of 98% on room air General: Thin anxious and tremulous adult male, GCS 15, no respiratory distress HEENT: Normocephalic atraumatic, mucous membranes are moist and pink, eyes are clear, normal conjunctiva, vision is grossly intact, posterior pharynx is normal in appearance. There is no swelling of the tongue, uvula or pharyngeal soft tissues. Patient easily opens his mouth completely with no sign of tetanus of the jaw Neck: Supple, no meningeal signs, no anterior or posterior cervical lymphadenopathy Chest: Lungs are clear to auscultation with good air entry, there is no wheezing rhonchi or rales appreciated no accessory muscle use, patient is speaking in com plete sentences-no chest wall tenderness to palpation CVS: Regular rate and rhythm S1-S2, no murmurs rubs or gallops, pulses are brisk and equal bilaterally ABD: Soft, nondistended, nontender, no rebound guarding or rigidity, bowel sounds are normal, no pulsatile masses appreciated Extremities: Moving all extremities, no lower extremity tenderness or swelling noted, negative Homans' sign, pulses are brisk and equal bilaterally Skin: Normal in appearance without rash,pallor, petechiae or purpura, needle tracks noted on upper extremities Neuro: No focal deficits, patient is tremulous with shaking of his upper extremities bilaterally. When distracted the shaking stops. Constitutional Vital Signs, click to edit/add: Last Vital Signs Temp 98.4 F 02/16/24 06:00 Pulse 101 H 02/16/24 10:01 Resp 18 02/16/24 10:01 BP 131/91 02/16/24 10:01 Pulse Ox 100 02/16/24 10:01 O2 Del Method Room Air 02/16/24 06:00 Course Vital Signs Vital signs: Vital Signs Temperature 98.4 F 02/16/24 06:00 Pulse Rate 84 02/16/24 06:00 Respiratory Rate 20 02/16/24 06:00 Blood Pressure 162/99 H 02/16/24 06:00 Pulse Oximetry 98 02/16/24 06:00 Oxygen Delivery Method Room Air 02/16/24 06:00 Temperature 98.4 F 02/16/24 06:00 Pulse Rate 101 H 02/16/24 10:01 Respiratory Rate 18 02/16/24 10:01 Blood Pressure 131/91 02/16/24 10:01 Pulse Oximetry 100 02/16/24 10:01 Oxygen Delivery Method Room Air 02/16/24 06:00 Medical Decision Making MDM Narrative Medical decision making narrative: Patient was signed out to the incoming physician at 7 AM. Labs and workup is pending. Lab Data Labs: Lab Results 02/16/24 02/16/24 02/16/24 Range/Units 06:50 07:00 07:10 WBC (4.0-11.0) 10^3/uL RBC (4.70-6.10) 10^6/uL Hgb (14.0-18.0) g/dL Hct (42.0-54.0) % MCV (80.0-94.0) fL MCH (25.9-34.0) pg MCHC (29.9-35.2) g/dL RDW (11.0-15.0) % Plt Count (150-450) 10^3/uL MPV (9.5-13.5) fL Neut % (Auto) (43.0-75.0) % Lymph % (Auto) (20.5-60.0) % [place] % (Auto) (1.7-12.0) % Eos % (Auto) (0.9-7.0) % Baso % (Auto) (0.2-2.0) % Neut # (Auto) (1.4-6.5) 10^3/uL Lymph # (Auto) (1.2-3.8) 10^3/uL [place] # (Auto) (0.3-0.8) 10^3/uL Eos # (Auto) (0.0-0.7) 10^3/uL Baso # (Auto) (0.0-0.1) 10^3/uL Abs Immat Gran (auto) (0.00-0.03) 10^3/uL Imm/Tot Granulo (auto) (0.0-0.5) % ESR 6 (<=15) mm/hr VBG pH (7.330-7.430) VBG pCO2 (40.0-52.0) mmHg Sodium 143 (136-145) mmol/L Potassium 3.6 (3.5-5.1) mmol/L Chloride 100 (98-107) mmol/L Carbon Dioxide 29.0 (21.0-32.0) mmol/L Anion Gap 17.6 BUN 6.0 L (7.0-18.0) mg/dL Creatinine 1.09 (0.70-1.30) mg/dL Est GFR ( Amer) >60 (>=60 mL/min/1.73m^2) Est GFR (Non-Af Amer) >60 (>=60 mL/min/1.73m^2) BUN/Creatinine Ratio 5.5 Glucose 121 H (74-106) mg/dL Lactate 2.4 H* (0.4-2.0) mmol/L Calcium 9.5 (8.5-10.1) mg/dL Total Bilirubin 0.7 (0.2-1.0) mg/dL AST 13 L (15-37) U/L ALT 13 L (16-63) U/L Alkaline Phosphatase 90 (46-116) U/L C-Reactive Protein 2.15 H (<=0.50) mg/dL Total Protein 7.7 (6.4-8.2) g/dL Albumin 4.2 (3.4-5.0) g/dL Globulin 3.5 g/dL Albumin/Globulin Ratio 1.2 Urine Color Lt. yellow (YELLOW) Urine Clarity Clear (CLEAR) Urine pH 7.0 (5.0-9.0) Ur Specific [place] 1.015 (1.005-1.025) Urine Protein Negative (NEG/TRACE) mg/dL Urine Glucose (UA) Negative (NEGATIVE) mg/dL Urine Ketones Negative (NEGATIVE) mg/dL Urine Occult Blood Negative (NEGATIVE) Urine Nitrite Negative (NEGATIVE) Urine Bilirubin Negative (NEGATIVE) Urine Urobilinogen 0.2 (0.2-1.0) EU/dL Ur Leukocyte Esterase Negative (NEGATIVE) Urine RBC 0-2 (0-2) #/HPF Urine WBC 0-2 A (NONE SEEN) #/HPF Ur Squamous Epith Cells Rare (NONE/RARE) #/LPF Urine Crystals None seen (None Seen) #/HPF Urine Bacteria None seen (NONE SEEN) #/HPF Urine Casts None seen (NONE SEEN) #/LPF Urine Mucus None seen (NONE SEEN) Ur Culture Indicated? No Urine Opiates Screen Negative (NEGATIVE) Ur Buprenorphine Scrn Negative (NEGATIVE) Ur Oxycodone Screen Negative (NEGATIVE) Urine Methadone Screen Negative (NEGATIVE) Ur Barbiturates Screen Negative (NEGATIVE) U Tricyclic Antidepress Negative (NEGATIVE) Ur Phencyclidine Scrn Negative (NEGATIVE) Ur Amphetamines Screen Negative (NEGATIVE) U Methamphetamines Scrn Negative (NEGATIVE) U Benzodiazepines Scrn Negative (NEGATIVE) Urine Cocaine Screen Negative (NEGATIVE) U Cannabinoids Screen Negative (NEGATIVE) Influenza Type A Ag Negative Influenza Type B Ag Negative SARS-CoV-2 Ag (CV2AG) Negative (NEGATIVE) Streptococcus Screen Negative 02/16/24 02/16/24 Range/Units 07:27 09:58 WBC 8.7 (4.0-11.0) 10^3/uL RBC 4.63 L (4.70-6.10) 10^6/uL Hgb 13.1 L (14.0-18.0) g/dL Hct 38.3 L (42.0-54.0) % MCV 82.7 (80.0-94.0) fL MCH 28.3 (25.9-34.0) pg MCHC 34.2 (29.9-35.2) g/dL RDW 11.9 (11.0-15.0) % Plt Count 265 (150-450) 10^3/uL MPV 8.6 L (9.5-13.5) fL Neut % (Auto) 77.2 H (43.0-75.0) % Lymph % (Auto) 10.3 L (20.5-60.0) % [place] % (Auto) 11.8 (1.7-12.0) % Eos % (Auto) 0.3 L (0.9-7.0) % Baso % (Auto) 0.3 (0.2-2.0) % Neut # (Auto) 6.7 H (1.4-6.5) 10^3/uL Lymph # (Auto) 0.9 L (1.2-3.8) 10^3/uL [place] # (Auto) 1.0 H (0.3-0.8) 10^3/uL Eos # (Auto) 0.0 (0.0-0.7) 10^3/uL Baso # (Auto) 0.0 (0.0-0.1) 10^3/uL Abs Immat Gran (auto) 0.01 (0.00-0.03) 10^3/uL Imm/Tot Granulo (auto) 0.1 (0.0-0.5) % ESR (<=15) mm/hr VBG pH 7.397 (7.330-7.430) VBG pCO2 42.7 (40.0-52.0) mmHg Sodium (136-145) mmol/L Potassium (3.5-5.1) mmol/L Chloride (98-107) mmol/L Carbon Dioxide (21.0-32.0) mmol/L Anion Gap BUN (7.0-18.0) mg/dL Creatinine (0.70-1.30) mg/dL Est GFR ( Amer) (>=60 mL/min/1.73m^2) Est GFR (Non-Af Amer) (>=60 mL/min/1.73m^2) BUN/Creatinine Ratio Glucose (74-106) mg/dL Lactate 0.9 (0.4-2.0) mmol/L Calcium (8.5-10.1) mg/dL Total Bilirubin (0.2-1.0) mg/dL AST (15-37) U/L ALT (16-63) U/L Alkaline Phosphatase (46-116) U/L C-Reactive Protein (<=0.50) mg/dL Total Protein (6.4-8.2) g/dL Albumin (3.4-5.0) g/dL Globulin g/dL Albumin/Globulin Ratio Urine Color (YELLOW) Urine Clarity (CLEAR) Urine pH (5.0-9.0) Ur Specific [place] (1.005-1.025) Urine Protein (NEG/TRACE) mg/dL Urine Glucose (UA) (NEGATIVE) mg/dL Urine Ketones (NEGATIVE) mg/dL Urine Occult Blood (NEGATIVE) Urine Nitrite (NEGATIVE) Urine Bilirubin (NEGATIVE) Urine Urobilinogen (0.2-1.0) EU/dL Ur Leukocyte Esterase (NEGATIVE) Urine RBC (0-2) #/HPF Urine WBC (NONE SEEN) #/HPF Ur Squamous Epith Cells (NONE/RARE) #/LPF Urine Crystals (None Seen) #/HPF Urine Bacteria (NONE SEEN) #/HPF Urine Casts (NONE SEEN) #/LPF Urine Mucus (NONE SEEN) Ur Culture Indicated? Urine Opiates Screen (NEGATIVE) Ur Buprenorphine Scrn (NEGATIVE) Ur Oxycodone Screen (NEGATIVE) Urine Methadone Screen (NEGATIVE) Ur Barbiturates Screen (NEGATIVE) U Tricyclic Antidepress (NEGATIVE) Ur Phencyclidine Scrn (NEGATIVE) Ur Amphetamines Screen (NEGATIVE) U Methamphetamines Scrn (NEGATIVE) U Benzodiazepines Scrn (NEGATIVE) Urine Cocaine Screen (NEGATIVE) U Cannabinoids Screen (NEGATIVE) Influenza Type A Ag Influenza Type B Ag SARS-CoV-2 Ag (CV2AG) (NEGATIVE) Streptococcus Screen Discharge Plan Discharge Chief Complaint: Weakness Clinical Impression: Body aches Patient Disposition: Home, Self-Care Time of Disposition Decision: 10:47 Condition: Good Prescriptions / Home Meds: No Action No Known Home Medications Print Language: Israeli Instructions: Musculoskeletal Pain (ED) Referrals: MOI PACHECO [Primary Care Provider] - 1 week Discharge Date/Time: 02/16/24 10:51
[2024-02-16] MEDS: LORAZEPAM 2 MG/ML VIAL 1 MG IV (07:14)
[2024-02-16] MEDS: 0.9 % SODIUM CHLORIDE 1,000 ML 1000 ML IV (07:14)
[2024-02-16 07:17] LABS: Bilirubin Urine NEGATIVE (NEGATIVE); Blood Urine NEGATIVE (NEGATIVE); Clarity Urine CLEAR (CLEAR); Color Urine LT. YELLOW (YELLOW); Glucose Urine UA NEGATIVE (NEGATIVE); Ketones Urine NEGATIVE (NEGATIVE); Leukocyte Esterase Urine NEGATIVE (NEGATIVE); Nitrite Urine NEGATIVE (NEGATIVE); Protein Urine NEGATIVE (NEG/TRACE); Specific Gravity Urine 1.015 (1.005-1.025); Urobilinogen Urine 0.2 EU/dL (0.2-1.0)
[2024-02-16 07:24] LABS: Bacteria Urine NONE SEEN #/HPF (NONE SEEN); RBC Urine 0-2 #/HPF (0-2); WBC Urine 0-2 #/HPF (NONE SEEN)
[2024-02-16 07:25] LABS: Cast Seen? NONE SEEN #/LPF (NONE SEEN); Crystals Seen? None Seen #/HPF (None Seen); Mucus Urine NONE SEEN (NONE SEEN); Squamous Epithelial Cell Urine RARE #/LPF (NONE/RARE); Urine Culture Indicated NO
--- NOTE | 2024-02-16 07:34 | ED_ITS ---
HPI HPI - General Adult General Chief complaint: Weakness Stated complaint: GENERAL WEAKNESS Time Seen by Provider: 02/16/24 06:01 Source: patient Mode of arrival: walk-in Limitations: no limitations History of Present Illness HPI narrative: The patient care was transferred to tn at 7 AM The patient presented to us with multiple complaint including shakiness that happened only yesterday waking up this morning coming with no specific symptoms today except that he is just feeling something wrong with him The patient denies any pain that is specific no nausea vomiting weakness or any other concerns he mentioned that [place] difficulty when he had this feeling that went away after a few seconds The patient have a very extensive history of what he said to be strep infection in his brain and he also have a history of drug abuse that he continued to have right now fentanyl abuse but he mentioned that he is not doing any IV drug use since 12 years only snorting fentanyl Related Data Home Medications ?Medication ?Instructions ?Recorded ?Confirmed No Known Home Medications 02/16/24 02/16/24 Allergies Allergy/AdvReac Type Severity Reaction Status Date / Time vancomycin AdvReac Severe Redness of Verified 02/16/24 06:04 Skin Opioid HPI Opioid Management Most Recent Opioid Data: Last Pain Scale 8 07/17/23 21:03 07/17/23 Ur Phencyclidine Scrn Negative (NEGATIVE) 02/16/24 06:50 02/03 05/27 Review of Systems ROS Status of ROS 10 or more systems reviewed and unremark able except as noted in history and below PFSH PFSH Social History Smoking status: Current every day smoker Little interest or pleasure in doing things: not at all Feeling down, depressed, or hopeless: not at all Exam Narrative Exam Narrative: Nurses notes and vital signs reviewed and patient is not hypoxic. General: Well-appearing and in no apparent distress. Skin: Warm, dry, no pallor noted. No rash. Head: Normocephalic, atraumatic. Neck: Supple, non-tender. Respiratory: No accessory muscle use or respiratory distress. Lungs are clear to auscultation, no wheezing, rales or rhonchi Chest Wall: no tenderness Back: No midline thoracic or lumbar vertebral tenderness. No CVA tenderness Musculoskeletal: normal ROM, no calf or popliteal tenderness, no lower extremity edema/swelling Constitutional Vital Signs, click to edit/add: Last Vital Signs Temp 98.4 F 02/16/24 06:00 Pulse 101 H 02/16/24 10:01 Resp 18 02/16/24 10:01 BP 131/91 02/16/24 10:01 Pulse Ox 100 02/16/24 10:01 O2 Del Method Room Air 02/16/24 06:00 Course Vital Signs Vital signs: Vital Signs Temperature 98.4 F 02/16/24 06:00 Pulse Rate 84 02/16/24 06:00 Respiratory Rate 20 02/16/24 06:00 Blood Pressure 162/99 H 02/16/24 06:00 Pulse Oximetry 98 02/16/24 06:00 Oxygen Delivery Method Room Air 02/16/24 06:00 Temperature 98.4 F 02/16/24 06:00 Pulse Rate 101 H 02/16/24 10:01 Respiratory Rate 18 02/16/24 10:01 Blood Pressure 131/91 02/16/24 10:01 Pulse Oximetry 100 02/16/24 10:01 Oxygen Delivery Method Room Air 02/16/24 06:00 Medical Decision Making MDM Narrative Medical decision making narrative: The patient care was transferred to tn at the beginning of the shift and please refer to Dr. Rabago note for further details The patient had a CT head showing no acute pathology as well as chest x-ray as well CBC chemistry showed no acute pathology except for elevated lactic acid that responded to 1 L of fluid Strep and COVID test also negative It was noted that the patient drug screen was negative even for opiates and I did explain to the patient right now what ever he is using might not be opiate Patient right now have no complaint he was discharged to follow-up with the primary care that he was provided with information of the primary care in the area The patient is to follow up with primary care physician in next 2-3 days or to return to the emergency department should any of the signs or symptoms worsen or new symptoms develop. The patient agrees with the following Diagnosis and Treatment plan and the patient will be discharged home. Lab Data Labs: Lab Results 02/16/24 02/16/24 02/16/24 Range/Units 06:50 07:00 07:10 WBC (4.0-11.0) 10^3/uL RBC (4.70-6.10) 10^6/uL Hgb (14.0-18.0) g/dL Hct (42.0-54.0) % MCV (80.0-94.0) fL MCH (25.9-34.0) pg MCHC (29.9-35.2) g/dL RDW (11.0-15.0) % Plt Count (150-450) 10^3/uL MPV (9.5-13.5) fL Neut % (Auto) (43.0-75.0) % Lymph % (Auto) (20.5-60.0) % [place] % (Auto) (1.7-12.0) % Eos % (Auto) (0.9-7.0) % Baso % (Auto) (0.2-2.0) % Neut # (Auto) (1.4-6.5) 10^3/uL Lymph # (Auto) (1.2-3.8) 10^3/uL [place] # (Auto) (0.3-0.8) 10^3/uL Eos # (Auto) (0.0-0.7) 10^3/uL Baso # (Auto) (0.0-0.1) 10^3/uL Abs Immat Gran (auto) (0.00-0.03) 10^3/uL Imm/Tot Granulo (auto) (0.0-0.5) % ESR 6 (<=15) mm/hr VBG pH (7.330-7.430) VBG pCO2 (40.0-52.0) mmHg Sodium 143 (136-145) mmol/L Potassium 3.6 (3.5-5.1) mmol/L Chloride 100 (98-107) mmol/L Carbon Dioxide 29.0 (21.0-32.0) mmol/L Anion Gap 17.6 BUN 6.0 L (7.0-18.0) mg/dL Creatinine 1.09 (0.70-1.30) mg/dL Est GFR ( Amer) >60 (>=60 mL/min/1.73m^2) Est GFR (Non-Af Amer) >60 (>=60 mL/min/1.73m^2) BUN/Creatinine Ratio 5.5 Glucose 121 H (74-106) mg/dL Lactate 2.4 H* (0.4-2.0) mmol/L Calcium 9.5 (8.5-10.1) mg/dL Total Bilirubin 0.7 (0.2-1.0) mg/dL AST 13 L (15-37) U/L ALT 13 L (16-63) U/L Alkaline Phosphatase 90 (46-116) U/L C-Reactive Protein 2.15 H (<=0.50) mg/dL Total Protein 7.7 (6.4-8.2) g/dL Albumin 4.2 (3.4-5.0) g/dL Globulin 3.5 g/dL Albumin/Globulin Ratio 1.2 Urine Color Lt. yellow (YELLOW) Urine Clarity Clear (CLEAR) Urine pH 7.0 (5.0-9.0) Ur Specific [place] 1.015 (1.005-1.025) Urine Protein Negative (NEG/TRACE) mg/dL Urine Glucose (UA) Negative (NEGATIVE) mg/dL Urine Ketones Negative (NEGATIVE) mg/dL Urine Occult Blood Negative (NEGATIVE) Urine Nitrite Negative (NEGATIVE) Urine Bilirubin Negative (NEGATIVE) Urine Urobilinogen 0.2 (0.2-1.0) EU/dL Ur Leukocyte Esterase Negative (NEGATIVE) Urine RBC 0-2 (0-2) #/HPF Urine WBC 0-2 A (NONE SEEN) #/HPF Ur Squamous Epith Cells Rare (NONE/RARE) #/LPF Urine Crystals None seen (None Seen) #/HPF Urine Bacteria None seen (NONE SEEN) #/HPF Urine Casts None seen (NONE SEEN) #/LPF Urine Mucus None seen (NONE SEEN) Ur Culture Indicated? No Urine Opiates Screen Negative (NEGATIVE) Ur Buprenorphine Scrn Negative (NEGATIVE) Ur Oxycodone Screen Negative (NEGATIVE) Urine Methadone Screen Negative (NEGATIVE) Ur Barbiturates Screen Negative (NEGATIVE) U Tricyclic Antidepress Negative (NEGATIVE) Ur Phencyclidine Scrn Negative (NEGATIVE) Ur Amphetamines Screen Negative (NEGATIVE) U Methamphetamines Scrn Negative (NEGATIVE) U Benzodiazepines Scrn Negative (NEGATIVE) Urine Cocaine Screen Negative (NEGATIVE) U Cannabinoids Screen Negative (NEGATIVE) Influenza Type A Ag Negative Influenza Type B Ag Negative SARS-CoV-2 Ag (CV2AG) Negative (NEGATIVE) Streptococcus Screen Negative 02/16/24 02/16/24 Range/Units 07:27 09:58 WBC 8.7 (4.0-11.0) 10^3/uL RBC 4.63 L (4.70-6.10) 10^6/uL Hgb 13.1 L (14.0-18.0) g/dL Hct 38.3 L (42.0-54.0) % MCV 82.7 (80.0-94.0) fL MCH 28.3 (25.9-34.0) pg MCHC 34.2 (29.9-35.2) g/dL RDW 11.9 (11.0-15.0) % Plt Count 265 (150-450) 10^3/uL MPV 8.6 L (9.5-13.5) fL Neut % (Auto) 77.2 H (43.0-75.0) % Lymph % (Auto) 10.3 L (20.5-60.0) % [place] % (Auto) 11.8 (1.7-12.0) % Eos % (Auto) 0.3 L (0.9-7.0) % Baso % (Auto) 0.3 (0.2-2.0) % Neut # (Auto) 6.7 H (1.4-6.5) 10^3/uL Lymph # (Auto) 0.9 L (1.2-3.8) 10^3/uL [place] # (Auto) 1.0 H (0.3-0.8) 10^3/uL Eos # (Auto) 0.0 (0.0-0.7) 10^3/uL Baso # (Auto) 0.0 (0.0-0.1) 10^3/uL Abs Immat Gran (auto) 0.01 (0.00-0.03) 10^3/uL Imm/Tot Granulo (auto) 0.1 (0.0-0.5) % ESR (<=15) mm/hr VBG pH 7.397 (7.330-7.430) VBG pCO2 42.7 (40.0-52.0) mmHg Sodium (136-145) mmol/L Potassium (3.5-5.1) mmol/L Chloride (98-107) mmol/L Carbon Dioxide (21.0-32.0) mmol/L Anion Gap BUN (7.0-18.0) mg/dL Creatinine (0.70-1.30) mg/dL Est GFR ( Amer) (>=60 mL/min/1.73m^2) Est GFR (Non-Af Amer) (>=60 mL/min/1.73m^2) BUN/Creatinine Ratio Glucose (74-106) mg/dL Lactate 0.9 (0.4-2.0) mmol/L Calcium (8.5-10.1) mg/dL Total Bilirubin (0.2-1.0) mg/dL AST (15-37) U/L ALT (16-63) U/L Alkaline Phosphatase (46-116) U/L C-Reactive Protein (<=0.50) mg/dL Total Protein (6.4-8.2) g/dL Albumin (3.4-5.0) g/dL Globulin g/dL Albumin/Globulin Ratio Urine Color (YELLOW) Urine Clarity (CLEAR) Urine pH (5.0-9.0) Ur Specific [place] (1.005-1.025) Urine Protein (NEG/TRACE) mg/dL Urine Glucose (UA) (NEGATIVE) mg/dL Urine Ketones (NEGATIVE) mg/dL Urine Occult Blood (NEGATIVE) Urine Nitrite (NEGATIVE) Urine Bilirubin (NEGATIVE) Urine Urobilinogen (0.2-1.0) EU/dL Ur Leukocyte Esterase (NEGATIVE) Urine RBC (0-2) #/HPF Urine WBC (NONE SEEN) #/HPF Ur Squamous Epith Cells (NONE/RARE) #/LPF Urine Crystals (None Seen) #/HPF Urine Bacteria (NONE SEEN) #/HPF Urine Casts (NONE SEEN) #/LPF Urine Mucus (NONE SEEN) Ur Culture Indicated? Urine Opiates Screen (NEGATIVE) Ur Buprenorphine Scrn (NEGATIVE) Ur Oxycodone Screen (NEGATIVE) Urine Methadone Screen (NEGATIVE) Ur Barbiturates Screen (NEGATIVE) U Tricyclic Antidepress (NEGATIVE) Ur Phencyclidine Scrn (NEGATIVE) Ur Amphetamines Screen (NEGATIVE) U Methamphetamines Scrn (NEGATIVE) U Benzodiazepines Scrn (NEGATIVE) Urine Cocaine Screen (NEGATIVE) U Cannabinoids Screen (NEGATIVE) Influenza Type A Ag Influenza Type B Ag SARS-CoV-2 Ag (CV2AG) (NEGATIVE) Streptococcus Screen Discharge Plan Discharge Chief Complaint: Weakness Clinical Impression: Body aches Patient Disposition: Home, Self-Care Time of Disposition Decision: 10:47 Condition: Good Prescriptions / Home Meds: No Action No Known Home Medications Print Language: Persian Instructions: Musculoskeletal Pain (ED) Referrals: MOI PACHECO [Primary Care Provider] - 1 week Discharge Date/Time: 02/16/24 10:51
[2024-02-16 07:43] LABS: Erythrocyte Sedimentation Rate 6 mm/hr (<=15)
[2024-02-16 07:46] LABS: Alanine Aminotransferase 13 U/L (16-63); Albumin Globulin Ratio 1.2; Albumin Level 4.2 g/dL (3.4-5.0); Alkaline Phosphatase 90 U/L (46-116); Anion Gap 17.6; Aspartate Amino Transferase 13 U/L (15-37); BUN Creatinine Ratio 5.5; Bilirubin Total 0.7 mg/dL (0.2-1.0); Calcium 9.5 mg/dL (8.5-10.1); Chloride 100 mmol/L (98-107); Estimated GFR (African America >60 (>=60 mL/min/1.73m^2); Estimated GFR (Non-African Ame >60 (>=60 mL/min/1.73m^2); Globulin 3.5 g/dL; Glucose 121 mg/dL (74-106); Potassium 3.6 mmol/L (3.5-5.1); Sodium 143 mmol/L (136-145); Total Protein 7.7 g/dL (6.4-8.2)
[2024-02-16 07:47] LABS: C Reactive Protein 2.15 mg/dL (<=0.50)
[2024-02-16 07:48] LABS: PCO2 VBG 42.7 mmHg (40.0-52.0); pH VBG 7.397 (7.330-7.430)
[2024-02-16 07:50] LABS: Influenza Virus A Antigen Negative; Influenza Virus B Antigen Negative; Internal Control Within Normal Limits
[2024-02-16 07:56] LABS: Internal Control Within Normal Limits; Strep A Antigen Screen Negative
[2024-02-16 07:59] LABS: Internal Control Within Normal Limits; SARS-CoV-2 Ag NEGATIVE (NEGATIVE)
[2024-02-16 08:03] LABS: Lactate/Lactic Acid 2.4 mmol/L (0.4-2.0)
[2024-02-16 08:37] LABS: Amphetamine Screen Urine NEGATIVE (NEGATIVE); Barbiturates Screen Urine NEGATIVE (NEGATIVE); Benzodiazepines Screen Urine NEGATIVE (NEGATIVE); Buprenorphine Screen Urine NEGATIVE (NEGATIVE); Cannabinoid Screen Urine NEGATIVE (NEGATIVE); Cocaine Screen Urine NEGATIVE (NEGATIVE); Methadone Screen Urine NEGATIVE (NEGATIVE); Methamphetamines Screen Urine NEGATIVE (NEGATIVE); Opiate Screen Urine NEGATIVE (NEGATIVE); Oxycodone Screen Urine NEGATIVE (NEGATIVE); Phencyclidine Screen Urine NEGATIVE (NEGATIVE); Tricyclic Antidepressant Urine NEGATIVE (NEGATIVE)
[2024-02-16] MEDS: ADACEL DIPH,PERTUSS(ACELL),TET VAC/PF 0.5 ML ADULT SYRINGE IM (09:06)
[2024-02-16 10:01] VITALS: BP 131/91; PULSE 101; O2SAT 100
[2024-02-16 10:09] LABS: Basophils Percent Auto 0.3 % (0.2-2.0); Eosinophils Percent Auto 0.3 % (0.9-7.0); Hematocrit 38.3 % (42.0-54.0); Hemoglobin 13.1 g/dL (14.0-18.0); Immature Granulocytes Abs Auto 0.01 10^3/uL (0.00-0.03); Immature Granulocytes Pct Auto 0.1 % (0.0-0.5); Lymphocytes Absolute Auto 0.9 10^3/uL (1.2-3.8); Lymphocytes Percent Auto 10.3 % (20.5-60.0); Mean Corpuscular HGB Conc 34.2 g/dL (29.9-35.2); Mean Corpuscular Hemoglobin 28.3 pg (25.9-34.0); Mean Corpuscular Volume 82.7 fL (80.0-94.0); Mean Platelet Volume 8.6 fL (9.5-13.5); Monocytes Percent Auto 11.8 % (1.7-12.0); Neutrophils Absolute Auto 6.7 10^3/uL (1.4-6.5); Neutrophils Percent Auto 77.2 % (43.0-75.0); Platelet Count 265 10^3/uL (150-450); Red Blood Count 4.63 10^6/uL (4.70-6.10); Red Cell Distribution Width 11.9 % (11.0-15.0); White Blood Count 8.7 10^3/uL (4.0-11.0)
[2024-02-16 10:25] LABS: Lactate/Lactic Acid 0.9 mmol/L (0.4-2.0)
== END 2024-02-16 10:51 | disposition home or self-care (01) ==
PROVIDERS: Emergency Medicine; Emergency Provider Emergency Medicine; PCP Nurse Practitioner Family
DX: R52 Pain, unspecified (principal); Z87.898 Personal history of other specified conditions; F19.10 Other psychoactive substance abuse, uncomplicated; F17.200 Nicotine dependence, unspecified, uncomplicated; R53.1 Weakness; R42 Dizziness and giddiness; Z23 Encounter for immunization
CPT/HCPCS: 36415; 70470; 71046; 80053; 80307; 81001; 82800; 83605; 85025; 85652; 86140; 87040; 87070; 87804; 87811; 87880; 90471; 90715; 96374; 99285; J2060; Q9967

== ENCOUNTER 2024-02-28 08:01 | Emergency (ER) | payer SELFPAY ==
[2024-02-28 08:05] VITALS: BP 175/95; PULSE 118; TEMP 36.9; O2SAT 98; BMI 21.3
--- OUTSIDE RECORDS SUMMARY | 2024-02-28 08:08 | XMS_ITS | CCD ---
Author Organization [facility] Care Team Providers Care Maintenance Instructor Name Role Phone PHYSICIAN, DEFAULT Unavailable Unavailable [...] Admit Provider MD Patricio Hyde Attending Provider Jair Gamble Attending Unavailable Patricio Hyde Admitting Unavailab Joy Cruz Primary Care Unavailable Patricio Hyde Attending Unavailab Patricio Cunninghma Admitting Unavailab Joy Cruz Primary Care Unavailable Allergies Allergy Classification Reported Allergen(s) Allergy Type Date of Onset Reaction(s) Facility (1 source) bee venom Drug allergy (disorder) 10-29-2013 [facility] Repository (3 sources) Vancomycin; Translations: [VANCOMYCIN] Drug Allergy 03-22-2018 [facility] Repository (1 source) WASP VENOM PROTEIN; Translations: [WASP VENOM PROTEIN] Drug Allergy 01-09-2017 [facility] Rep[facility] (1 source) HYMENOPTERA ALLERGENIC EXTRACT; Translations: [HYMENOPTERA ALLERGENIC EXTRACT] Drug Allergy 01-09-2017 [facility] Repository (2 sources) Vancomycin Drug Allergy [facility] Other (1 source) Vancomycin Drug Allergy 12-24-2022 [facility] Repository Medications Current Medications Medication Drug [...] 30 mg oral tablet (1 source) Uncompetitive B-oizsuo-Z-aspartate Receptor Antagonist, Sigma-1 Agonist Start: 12-24-2022 [place] DMT 30-30 MG 1 tablet Orally every [...] oral tablet (2 sources) alpha-Adrenergic Agonist, Uncompetitive V-aeqeys-G-aspartat e Receptor Antagonist, Sigma-1 Agonist Start: 07-14-2022 [...] 07-29-2023 Cholesterol [Mass/Vol] 116 mg/dL Low 140-200 [facility] Comment on above: Chol less than 200 m g/dl low riskChol 201-239 mg/dl borderline riskChol 240 mg/dl and greater high risk Result Comment: Chol less than 200 mg/dl low risk Chol 201-239 mg/dl borderline risk Chol 240 mg/dl and greater high risk Performed By: #### V [id number], TSH3 wRFLX, LIPID #### [facility] [address] Cholesterol in LDL Calc [Mas s/Vol]Ordered By: Patricio Hyde on 07-29-2023 Cholesterol in LDL [Mass/Vol] 47 mg/dL 0-100 [facility] Comment on above: LDL ATP III CLASSIFI CATIONLDL less than 100 mg/dL OptimalLDL 100-129 mg/dL Near or above optimalLDL 130-159 mg/dL Borderline highLDL 160-189 mg/dL HighLDL greater than 189 mg/dL Very high Cholesterol in VLDL Calc [Ma ss/Vol]Ordered By: Patricio Hyde on 07-29-2023 Cholesterol in VLDL [Mass/Vol] 22 mg/dL [facility] Lipid Panelon 07-29-2023 LDL Cholesterol,Calculate d 47 mg/dL Normal 0-100 [facility] Comment on above: Result Comment: LDL ATP III CLASSIFICATION LDL less than 100 mg/dL Optimal LDL 100-129 mg/dL Near or above optimal LDL 130-159 mg/dL Borderline high LDL 160-189 mg/dL High LDL greater than 189 mg/dL Very high Performed By: #### V [id number], TSH3 wRFLX, LIPID #### [facility] [address] Triglyceride w/Reflex 113 mg/dL Normal 0-149 [facility] Comment on above: Result Comment: TRIG ATP III CLASSIFICATION TRIG less than 150 mg/dL Normal TRIG 150-199 mg/dL Borderline high TRIG 200-500 mg/dL High TRIG greater than 500 mg/dL Very high Standard traceable to the Center for Disease Conrtrol and Prevention (CDC) test method. Performed By: #### V [id number], TSH3 wRFLX, LIPID #### [facility] [address] VLDL CHOLESTEROL 22 mg/dL Normal [facility] Comment on above: Performed By: #### V [id number], TSH3 wRFLX, LIPID #### [facility] [address] Serum or plasma high density lipoprotein (HDL) cholesterol measurementOrdered By: Patricio Hyde on 07-29-2023 Cholesterol in HDL [Mass/Vol] 46 mg/dL Normal 23-92 [facility] Comment on above: HDL CHOL ATP-III CLA SSIFICATION Cardiovascular RiskHDL > or equal to 60 mg/dL LOWHDL < 40 mg/dL HIGH Result Comment: HDL CHOL ATP-III CLASSIFICATION Cardiovascular Risk HDL > or equal to 60 mg/dL LOW HDL < 40 mg/dL HIGH Performed By: #### V [id number], TSH3 wRFLX, LIPID #### [facility] [address] Serum or plasma total choles terol/high density lipoprotein (HDL) cholesterol mass ratOrdered By: Patricio Hyde on 07-29-2023 Cholesterol.total/Cho lesterol in HDL [Mass ratio] 2.5 {ratio} Normal <5.0 [facility] Comment on above: Performed By: #### V [id number], TSH3 wRFLX, LIPID #### [facility] [address] Thyroid Stim Hormone w/Rflxo n 07-29-2023 Thyroid Stim Hormone w/Rflx 0.64 u[iU]/mL Normal 0.45-5.33 [facility] Comment on above: Performed By: #### V [id number], TSH3 wRFLX, LIPID #### [facility] [address] Thyrotropin [Units/volume] i n Serum or PlasmaOrdered By: Patricio Hyde on 07-29-2023 TSH Qn 0.64 m[IU]/L 0.45-5.33 [facility] Triglyceride [Mass/volume] i n Serum or PlasmaOrdered By: Patricio Hyde on 07-29-2023 Triglyceride [Mass/Vol] 113 mg/dL 0-149 [facility] Comment on above: TRIG ATP III CLASSIF ICATIONTRIG less than 150 mg/dL NormalTRIG 150-199 mg/dL Borderline highTRIG 200-500 mg/dL High TRIG greater than 500 mg/dL Very highStandard traceable to the Center for Disease Conrtrol and Prevention (CDC) test method. Vitamin D 25 Hydroxy Totalon 07-29-2023 Vitamin D 25 Hydroxy Total 30.7 ng/mL Normal 30-100 [facility] Comment on above: Result Comment: MÓNICA MIN D STATUS 25(OH)VITAMIN D RANGE (ng/mL) Deficient <20 Insufficient 20 to <30 Sufficient 30 to 100 Reference: Leo MF,Marlo NC, Chayito TIERNEY, et al. Evaluation,treatment, and prevention of vitamin D deficiency; an Endocrine Society clinical practice guideline. JCEM. 2010; 96(7):1911-30. PERFORMED BY: [place] [address] PATHOLOGIST HEALTH INFORMATICS INSTRUCTOR LAWRENCE LORENZ M.D. Performed By: #### V [id number], TSH3 wRFLX, LIPID #### [address] Vitamin D+Metabolites [Mass/ volume] in Serum or PlasmaOrdered By: Patricio Hyde on 07-29-2023 Vitamin D+Metabolites [Mass/Vol] 30.7 ng/mL 30-100 [facility] Comment on above: VITAMIN D STATUS 25( [place])VITAMIN D RANGE (ng/mL) Deficient <20 Insufficient 20 to <30Sufficient 30 to 100Reference: Leo MF,Marlo BERMUDEZ, Chayito TIERNEY, et al. Evaluation,treatment, and prevention of vitamin D deficiency; an Endocrine Society clinical practice guideline. JCEM. 2010; 96(7):1911-30. COVID + FLU Quick Testingon 12-24-2022 SARS-CoV-2 (COVID-19) RNA ANALILIA+probe Ql (Unsp spec) Negative [facility] Other COVID + FLU Quick Testing Negative [facility] Other COVID + FLU Quick Testingon 07-14-2022 SARS-CoV-2 (COVID-19) RNA ANALILIA+probe Ql (Unsp spec) negtive [facility] Other COVID + FLU Quick Testing Negative [facility] Other Quick Strepon 07-14-2022 S. pyogenes Org specific cx Ql (Throat) neative [facility] Other Quick Strep [facility] Other EDNURSon 02-27-2022 EDNURS Pt c/o vomiting, headache, cough, sore throat x3 days. 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 Normal [facility] EDPROVon 02-27-2022 EDPROV HPI Chief Complaint [...] Attestion Jaden Ling MD 03/05/22 0812 Normal [facility] BNPon 05-03-2020 Natriuretic peptide B (Bld) [Mass/Vol] 26.0 pg/mL Normal <=450.0 [facility] Comment on above: Performed By: #### P TT, PT #### [facility] [address], [place] [address] Lelia Dawn CBC AUTO DIFFon 05-03-2020 Basophils (Bld) [#/Vol] 0.0 103/ul Normal 0.0-0.1 [facility] Comment on above: Performed By: #### C BC #### [facility] [address] [place], [place] [address] Lelia Nereyda Basophils/100 WBC (Bld) 0.6 % Normal 0.2-2.0 [facility] Comment on above: Performed By: #### C BC #### [facility] [address] [place] [address] Lelia Nereyda Eosinophils (Bld) [#/Vol] 0.5 103/ul Normal 0.0-0.7 [facility] Comment on above: Performed By: #### C BC #### [facility] [address] [place] [address] Lelia Nereyda Eosinophils/100 WBC (Bld) 7.9 % Critically high 0.9-7.0 [facility] Comment on above: Performed By: #### C BC #### [facility] [address] [place] [address] Lelia Nereyda Erythrocyte distribution width (RBC) [Ratio] 12.9 % Normal 11.0-15.0 [facility] Comment on above: Performed By: #### C BC #### [facility] [address] [place] [address] Lelia Nereyda Hematocrit (Bld) [Volume fraction] 44.1 % Normal 42.0-54.0 [facility] Comment on above: Performed By: #### C BC #### [facility] [address] [place] [address] Lelia Nereyda Hemoglobin (Bld) [Mass/Vol] 14.5 g/dL Normal 14.0-18.0 [facility] Comment on above: Performed By: #### C BC #### [facility] [address] [place] [address] Lelia Nereyda IG # 0.01 10e3/ul Normal 0.00-0.03 [facility] Comment on above: Performed By: #### C BC #### [facility] [address] [place] [address] Lelia Nereyda IG % 0.1 % Normal 0.0-0.5 [facility] Comment on above: Performed By: #### C BC #### [facility] [address] [place] [address] Lelia Nereyda Lymphocytes (Bld) [#/Vol] 1.7 103/ul Normal 1.2-3.8 [facility] Comment on above: Performed By: #### C BC #### [facility] [address] [place], [place] [id number] Lelia Nereyda Lymphocytes/100 WBC (Bld) 24.1 % Normal 20.5-60.0 [facility] Comment on above: Performed By: #### C BC #### [facility] [address] [place], [place] [id number] Lelia Nereyda MANUAL DIFF REQ NO Normal [facility] Comment on above: Performed By: #### C BC #### [facility] [address] [place], [place] [id number] Lelia Nereyda MCH (RBC) [Entitic mass] 28.6 pg Normal 25.9-34.0 [facility] Comment on above: Performed By: #### C BC #### [facility] [address] [place], [place] [id number] Lelia Nereyda MCHC (RBC) [Mass/Vol] 32.9 g/dL Normal 29.9-35.2 [facility] Comment on above: Performed By: #### C BC #### [facility] [address] [place], [place] [id number] Lelia Nereyda MCV (RBC) [Entitic vol] 87.0 fL Normal 80.0-94.0 [facility] Comment on above: Performed By: #### C BC #### [facility] [address] [place], [place] [id number] Lelia Nereyda Monocytes (Bld) [#/Vol] 0.7 103/ul Normal 0.3-0.8 [facility] Comment on above: Performed By: #### C BC #### [facility] [address] [place], [place] [id number] Lelia Nereyda Monocytes/100 WBC (Bld) 10.4 % Normal 1.7-12.0 [facility] Comment on above: Performed By: #### C BC #### [facility] [address] [place], [place] [id number] Lelia Nereyda Neutrophils (Bld) [#/Vol] 3.9 103/ul Normal 1.4-6.5 [facility] Comment on above: Performed By: #### C BC #### [facility] [address] [place], [place] [id number] Leliadeisi Dawn Neutrophils/100 WBC (Bld) 56.9 % Normal 43.0-75.0 [facility] Comment on above: Performed By: #### C BC #### [facility] [address] [place], [place] [id number] Leliadeisi Fungen Platelet mean volume (Bld) [Entitic vol] 8.8 fL Critically low 9.5-13.5 [facility] Comment on above: Performed By: #### C BC #### [facility] [address] [place], [place] [id number] Lelia Nereyda Platelets (Bld) [#/Vol] 280 103/ul Normal 150-450 [facility] Comment on above: Performed By: #### C BC #### [facility] [address] [place], [place] [id number] Lelia Nereyda RBC (Bld) [#/Vol] 5.07 106/ul Normal 4.70-6.10 [facility] Comment on above: Performed By: #### C BC #### [facility] [address] [place], [place] [id number] Leliadeisi Dawn WBC (Bld) [#/Vol] 6.8 103/ul Normal 4.0-11.0 [facility] Comment on above: Performed By: #### C BC #### [facility] [address] [place], [place] [id number] Lelia Nereyda ER URINE PROFILEon 1 Bilirubin [Mass/Vol] Negative Normal NEGATIVE [facility] Comment on above: Performed By: #### E RUR #### [facility] [address] [place], [place] [id number] Lelia Nereyda BLOOD Negative Normal NEGATIVE [facility] Comment on above: Performed By: #### E RUR #### [facility] [address] [place], [place] [id number] Lelia Nereyda Clarity (U) CLEAR Normal CLEAR [facility] Comment on above: Performed By: #### E RUR #### [facility] [address] [place] [address] Lelia Nereyda Color (U) YELLOW Normal YELLOW [facility] Comment on above: Performed By: #### E RUR #### [facility] [address] [place], [place] [id number] Lelia Nereyda ERUAHD A micrscopic examination will be performed if indicated. Normal [facility] Comment on above: Performed By: #### E RUR #### [facility] [address] [place] [address] Lelia Nereyda Glucose [Mass/Vol] Negative Normal NEGATIVE [facility] Comment on above: Performed By: #### E RUR #### [facility] [address] [place] [address] Lelia Nereyda Ketones Ql (U) Negative Normal NEGATIVE [facility] Comment on above: Performed By: #### E RUR #### [facility] [address] [place] [address] Lelia Nereyda Nitrite Ql (U) Negative Normal NEGATIVE [facility] Comment on above: Performed By: #### E RUR #### [facility] [address] [place] [address] Lelia Nereyda pH (Bld) 6.5 Normal 5-9 [facility] Comment on above: Performed By: #### E RUR #### [facility] [address] [place] [address] Ellia Nereyda Protein (U) [Mass/Vol] Negative Normal NEGATIVE/ TRACE [facility] Comment on above: Performed By: #### E RUR #### [facility] [address] [place] [address] Lelia Nereyda SPEC GRAVITY 1.025 Normal 1.005-<=1.02 5 [facility] Comment on above: Performed By: #### E RUR #### [facility] [address] [place] [address] Lelia Nereyda UR MICRO IND NOT INDICATED Normal [facility] Comment on above: Performed By: #### E RUR #### [facility] [address] [place], [place] [address] Leliadeisi Dawn Urobilinogen Qn (U) 1.0 EU/dl Normal 0.2 - 1.0 [facility] Comment on above: Performed By: #### E RUR #### [facility] [address] [place] [address] Lelia Nereyda WBC (Bld) [#/Vol] Negative Normal NEGATIVE [facility] Comment on above: Performed By: #### E RUR #### [facility] [address] [place] [address] Lelia Dawn PROF 14(COMP METB)on 021 Albumin [Mass/Vol] 3.8 g/dL Normal 3.5-5.0 [facility] Comment on above: Performed By: #### P TT, PT #### [facility] [address] [place], [place] [phone] Lelia Dawn Albumin/Globulin [Mass ratio] 1.4 {ratio} Normal [facility] Comment on above: Performed By: #### P TT, PT #### [facility] [address] [place], [place] [phone] Lelia Nereyda ALP [Catalytic activity/Vol] 97 U/L Normal 38-126 [facility] Comment on above: Performed By: #### P TT, PT #### [facility] [address] [place], [place] [phone] Lelia Dawn ALT [Catalytic activity/Vol] 24 U/L Normal 21-72 [facility] Comment on above: Performed By: #### P TT, PT #### [facility] [address] [place] [address] Lelia Nereyda Anion gap [Moles/Vol] 8.7 mmol/L Normal [facility] Comment on above: Performed By: #### P TT, PT #### [facility] [address] [place], [place] [phone] Lelia Nereyda AST [Catalytic activity/Vol] 18 U/L Normal 17-59 [facility] Comment on above: Performed By: #### P TT, PT #### [facility] [address] [place] [id number] Lelia Nereyda Bilirubin Ql (U) 0.4 mg/dL Normal 0.2-1.3 [facility] Comment on above: Performed By: #### P TT, PT #### [facility] [address] [place] [id number] Lelia Nereyda Calcium [Mass/Vol] 8.8 mg/dL Normal 8.4-10.2 [facility] Comment on above: Performed By: #### P TT, PT #### [facility] [address] [place] [id number] Lelia Nereyda Chloride [Moles/Vol] 106 mmol/L Normal 98-107 [facility] Comment on above: Performed By: #### P TT, PT #### [facility] [address] [place] [address] Lelia Nereyda CO2 [Moles/Vol] 31.2 mmol/L Critically high 22.0-30.0 [facility] Comment on above: Performed By: #### P TT, PT #### [facility] [address] [place] [address] Lelia Nereyda Creatinine [Mass/Vol] 1.00 mg/dL Normal 0.66-1.25 [facility] Comment on above: Performed By: #### P TT, PT #### [facility] [address] [place], [place] [id number] Lelia Nereyda EGFR-AF POLISH >60 Normal >=60 [facility] Comment on above: Performed By: #### P TT, PT #### [facility] [address] [place], [place] [id number] Lelia Nereyda EGFR-NON AF POLISH >60 Normal >=60 [facility] Comment on above: Performed By: #### P TT, PT #### [facility] [address] [place], [place] [phone] Lelia Nereyda Globulin (S) [Mass/Vol] 2.7 g/dL Normal [facility] Comment on above: Performed By: #### P TT, PT #### [facility] [address] [place] [address] Lelia Nereyda Glucose [Mass/Vol] 101 mg/dL Normal 74-106 [facility] Comment on above: Performed By: #### P TT, PT #### [facility] [address] [place] [phone] Lelia Nereyda Potassium [Moles/Vol] 3.9 mmol/L Normal 3.4-5.0 [facility] Comment on above: Performed By: #### P TT, PT #### [facility] [address] [place] [address] Lelia Nereyda Protein [Mass/Vol] 6.5 g/dL Normal 6.1-8.2 [facility] Comment on above: Performed By: #### P TT, PT #### [facility] [address] [place] [address] Lelia Nereyda Sodium [Moles/Vol] 142 mmol/L Normal 137-145 [facility] Comment on above: Performed By: #### P TT, PT #### [facility] [address] [place] [address] Lelia Nereyda Urea nitrogen [Mass/Vol] 17.0 mg/dL Normal 9.0-20.0 [facility] Comment on above: Performed By: #### P TT, PT #### [facility] [address] [place], [place] [phone] Lelia Nereyda Urea nitrogen/Creatinine [Mass ratio] 17.0 mg/mg Normal [facility] Comment on above: Performed By: #### P TT, PT #### [facility] [address] [place], [place] [phone] Lelia Nereyda PROTIMEon 05-03-2020 INR Coag (PPP) [Relative time] 1.03 {INR} Normal [facility] Comment on above: Performed By: #### P TT, PT #### [facility] [address] [place], [place] [phone] Lelia Nereyda PT Coag (PPP) [Time] SEE BELOW Normal [facility] Comment on above: Result Comment: MARCO RED INR: 2.0 - 3.0 CONDITIONS NOT LISTED BELOW 2.5 - 3.5 FOR PROSTHETIC HEART VALVE REPLACEMENT 2.5 - 3.5 RECURRENT THROMBOSIS Performed By: #### P TT, PT #### [facility] [address] [place], [place] [phone] Lelia Dawn PT Coag (PPP) [Time] 11.2 s Normal 9.0-11.6 [facility] Comment on above: Performed By: #### P TT, PT #### [facility] [address] [place], [place] [address] Lelia Dawn PTTon 05-03-2020 aPTT Coag (Bld) [Time] 25.6 s Normal 22.3-36.2 [facility] Comment on above: Performed By: #### P TT, PT #### [facility] [address] [place], [place] [address] Lelia Dawn CBC AUTO DIFFon 09-10-2019 Basophils (Bld) [#/Vol] 0.0 103/ul Normal 0.0-0.1 [facility] Comment on above: Performed By: #### C BC #### [facility] [address] [place], [place] [address] Lelia Dawn Basophils/100 WBC (Bld) 0.4 % Normal 0.2-2.0 [facility] Comment on above: Performed By: #### C BC #### [facility] [address] [place], [place] [address] Lelia Nereyda Eosinophils (Bld) [#/Vol] 0.2 103/ul Normal 0.0-0.7 [facility] Comment on above: Performed By: #### C BC #### [facility] [address] [place], [place] [address] Lelia Dawn Eosinophils/100 WBC (Bld) 3.2 % Normal 0.9-7.0 [facility] Comment on above: Performed By: #### C BC #### [facility] [address] [place], [place] [address] Lelia Nereyda Erythrocyte distribution width (RBC) [Ratio] 12.4 % Normal 11.0-15.0 [facility] Comment on above: Performed By: #### C BC #### [facility] [address] [place] [address] Lelia Nereyda Hematocrit (Bld) [Volume fraction] 41.3 % Critically low 42.0-54.0 [facility] Comment on above: Performed By: #### C BC #### [facility] [address] [place], [place] [address] Lelia Nereyda Hemoglobin (Bld) [Mass/Vol] 13.8 g/dL Critically low 14.0-18.0 [facility] Comment on above: Performed By: #### C BC #### [facility] [address] [place], [place] [address] Lelia Nereyda IG # 0.02 10e3/ul Normal 0.00-0.03 [facility] Comment on above: Performed By: #### C BC #### [facility] [address] [place] [address] Lelia Nereyda IG % 0.3 % Normal 0.0-0.5 [facility] Comment on above: Performed By: #### C BC #### [facility] [address] [place], [place] [phone] Lelia Nereyda Lymphocytes (Bld) [#/Vol] 1.6 103/ul Normal 1.2-3.8 [facility] Comment on above: Performed By: #### C BC #### [facility] [address] [place], [place] [address] Lelia Nereyda Lymphocytes/100 WBC (Bld) 21.6 % Normal 20.5-60.0 [facility] Comment on above: Performed By: #### C BC #### [facility] [address] [place], [place] [address] Lelia Dawn MANUAL DIFF REQ NO Normal [facility] Comment on above: Performed By: #### C BC #### [facility] [address] [place], [place] [address] Lelia Nereyda MCH (RBC) [Entitic mass] 28.7 pg Normal 25.9-34.0 [facility] Comment on above: Performed By: #### C BC #### [facility] [address] [place], [place] [address] Lelia Nereyda MCHC (RBC) [Mass/Vol] 33.4 g/dL Normal 29.9-35.2 [facility] Comment on above: Performed By: #### C BC #### [facility] [address] [place], [place] [address] Leliadeisi Dawn MCV (RBC) [Entitic vol] 85.9 fL Normal 80.0-94.0 [facility] Comment on above: Performed By: #### C BC #### [facility] [address] [place], [place] [address] Lelia Nereyda Monocytes (Bld) [#/Vol] 0.5 103/ul Normal 0.3-0.8 [facility] Comment on above: Performed By: #### C BC #### [facility] [address] [place], [place] [address] Lelia Nereyda Monocytes/100 WBC (Bld) 6.9 % Normal 1.7-12.0 [facility] Comment on above: Performed By: #### C BC #### [facility] [address] [place], [place] [address] Lelia Nereyda Neutrophils (Bld) [#/Vol] 5.0 103/ul Normal 1.4-6.5 [facility] Comment on above: Performed By: #### C BC #### [facility] [address] [place], [place] [address] Lelia Nereyda Neutrophils/100 WBC (Bld) 67.6 % Normal 43.0-75.0 [facility] Comment on above: Performed By: #### C BC #### [facility] [address] [place] [address] Lelia Nereyda Platelet mean volume (Bld) [Entitic vol] 8.5 fL Critically low 9.5-13.5 [facility] Comment on above: Performed By: #### C BC #### [facility] [address] [address] [place], [place] [id number] Lelia Nereyda Platelets (Bld) [#/Vol] 287 103/ul Normal 150-450 [facility] Comment on above: Performed By: #### C BC #### [facility] [address], [place] [address] Lelia Dawn RBC (Bld) [#/Vol] 4.81 106/ul Normal 4.70-6.10 [facility] Comment on above: Performed By: #### C BC #### [facility] [address], [place] [address] Lelia Dawn WBC (Bld) [#/Vol] 7.4 103/ul Normal 4.0-11.0 [facility] Comment on above: Performed By: #### C BC #### [facility] [address], [place] [address] HEAD WO CONon 09-10-2019 [...] by: JARAD VILLA Date: 2019-09-10 21:33 Normal [facility] LACTATE/LACTIC ACIDon 2019 Lactate [Moles/Vol] 1.3 mmol/L Normal 0.7-2.0 [facility] Comment on above: Performed By: #### L ACT #### [facility] [address] [place], [place] [id number] Lelia Nereyda PROF CHEM 8 (BAS METB)on Anion gap [Moles/Vol] 8.8 mmol/L Normal [facility] Comment on above: Performed By: #### P TT, PT #### [facility] [address] [place] [address] Lelia Nereyda Calcium [Mass/Vol] 8.6 mg/dL Normal 8.4-10.2 [facility] Comment on above: Performed By: #### P TT, PT #### [facility] [address] [place] [address] Lelia Nereyda Chloride [Moles/Vol] 106 mmol/L Normal 98-107 [facility] Comment on above: Performed By: #### P TT, PT #### [facility] [address] [place] [address] Lelia Nereyda CO2 [Moles/Vol] 31.8 mmol/L Critically high 22.0-30.0 [facility] Comment on above: Performed By: #### P TT, PT #### [facility] [address] [place] [address] Lelia Nereyda Creatinine [Mass/Vol] 1.12 mg/dL Normal 0.66-1.25 [facility] Comment on above: Performed By: #### P TT, PT #### [facility] [address] [place], [place] [id number] Lelia Nereyda EGFR-AF POLISH >60 Normal >=60 [facility] Comment on above: Performed By: #### P TT, PT #### [facility] [address] [place], [place] [id number] Lelia Nereyda EGFR-NON AF POLISH >60 Normal >=60 [facility] Comment on above: Performed By: #### P TT, PT #### [facility] [address] [place], [place] [id number] Lelia Nereyda Glucose [Mass/Vol] 119 mg/dL Critically high 74-106 [facility] Comment on above: Performed By: #### P TT, PT #### [facility] [address] [place] [address] Lelia Nereyda Potassium [Moles/Vol] 3.6 mmol/L Normal 3.4-5.0 [facility] Comment on above: Performed By: #### P TT, PT #### [facility] [address] [place] [address] Lelia Nereyda Sodium [Moles/Vol] 143 mmol/L Normal 137-145 [facility] Comment on above: Performed By: #### P TT, PT #### [facility] [address] [place] [address] Lelia Nereyda Urea nitrogen [Mass/Vol] 12.0 mg/dL Normal 9.0-20.0 [facility] Comment on above: Performed By: #### P TT, PT #### [facility] [address] [place] [address] Lelia Nereyda Urea nitrogen/Creatinine [Mass ratio] 10.7 mg/mg Normal [facility] Comment on above: Performed By: #### P TT, PT #### [facility] [address] [place] [address] Leliadeisi Dawn TROPONIN - Ion 09-10-2019 Troponin I.cardiac [Mass/Vol] SEE BELOW Normal [facility] Comment on above: Result Comment: <0.0 34 ng/ml NEGATIVE 0.034-0.119 INDETERMINATE 0.120 AMI CUT OFF Performed By: #### B MP, TROP #### [facility] [address] [place], [place] [id number] Lelia Neryeda Troponin I.cardiac [Mass/Vol] ng/mL Normal <=0.034 [facility] Comment on above: Performed By: #### B MP, TROP #### [facility] [address] [place], [place] [id number] Lelia Nereyda XR CHEST 1 Von 09-10-2019 [...] by: QI BONDS Date: 2019-09-10 21:38 Normal [facility] Vital Signs Date Time Vital Sign Value Performing Clinician Facility 07-31-2023 08:32-0400 Body weight 61.5 kg [employer] Joy Nelson Work Phone: [facility] 07-31-2023 07:30-0400 Body temperature 98.1 [degF] [employer] Joy Nelson Work Phone: [facility] 07-31-2023 07:30-0400 Diastolic blood pressure 72 mm[Hg] [employer] Joy Nelson Work Phone: [facility] 07-31-2023 07:30-0400 Heart rate 88 /min [employer] Joy Nelson Work Phone: [facility] 07-31-2023 07:30-0400 Respiratory rate 18 /min [employer] Joy Nelson Work Phone: [facility] 07-31-2023 07:30-0400 SaO2% (BldA) [Mass fraction] 99 % [employer] Joy Nelson Work Phone: [facility] 07-31-2023 07:30-0400 Systolic blood pressure 125 mm[Hg] [employer] Joy Nelson Work Phone: [facility] 07-28-2023 21:52-0400 Body height 172.72 cm [employer] Joy Nelson Work Phone: [facility] 12-24-2022 14:05-0400 Body height 175.26 cm Sylvie Morales Other [facility] Other 12-24-2022 14:05-0400 Body mass index (BMI) [Ratio] 20.7 kg/m2 Sylvie QuNano Other [facility] Other 12-24-2022 14:05-0400 Body temperature 98.3 [degF] Sylvie Morales Other [facility] Other 12-24-2022 14:05-0400 Body weight 63.59 kg Sylvie Morales Other [facility] Other 12-24-2022 14:05-0400 Respiratory rate 18 /min Sylvie Morales Other [facility] Other 12-24-2022 14:05-0400 SaO2% (BldA) [Mass fraction] 97 % Sylvie Morales Other [facility] Other 07-14-2022 12:45-0400 Body height 175.26 cm Seble Freed Other [facility] Other 07-14-2022 12:45-0400 Body mass index (BMI) [Ratio] 20.08 kg/m2 Seble Freed Other [facility] Other 07-14-2022 12:45-0400 Body temperature 99.1 [degF] Seble Freed Other [facility] Other 07-14-2022 12:45-0400 Body weight 61.69 kg Seble Freed Other [facility] Other 07-14-2022 12:45-0400 Respiratory rate 18 /min Seble Freed Other [facility] Other 07-14-2022 12:45-0400 SaO2% (BldA) [Mass fraction] 98 % Seble Freed Other [facility] Other Encounters Encounter Date Encounter Type Care Provider Facility Start: 07-29-2023 Non-patient / Non-visit [employer] Joy Nelson Work Phone: [facility] Work Phone: Start: 07-28-2023 End: 07-31-2023 Evaluation and management of inpatient [employer] Joy Nelson Work Phone: [facility] Work Phone: Start: 07-28-2023 ambulatory Patricio Holman acility:[facility] Start: 12-24-2022 End: 12-24-2022 ambulatory Sylvie Morales Other [facility] Other Start: 12-24-2022 Office outpatient visit 15 minutes Sylvie Morales [facility] Start: 07-14-2022 End: 07-14-2022 ambulatory Seble Freed Other [facility] Other Start: 07-14-2022 Office outpatient visit 25 minutes Seble Freed [facility] Start: 02-27-2022 End: 02-27-2022 Emergency department patient visit [facility] Start: 05-03-2020 End: 05-03-2020 Patient encounter procedure MAX PAVLOCK Facility:[facility] Start: 09-10-2019 End: 09-11-2019 Patient encounter procedure MAX PAVLOCK Facility: Start: 03-29-2018 End: 03-29-2018 ambulatory DIANE KISER Facility:[facility] Start: 01-30-2017 End: 01-31-2017 Ambulatory DEFAULT PHYSICIAN Facility:[facility] Start: 01-11-2017 End: 01-12-2017 Ambulatory DEFAULT PHYSICIAN Facility:[facility] Procedures Date Procedure Procedure Detail Performing Clinician Start: 09-10-2019 End: 09-10-2019 Microscopic examination of blood, culture ABHIJEET NASH Comment on above: Performed By: #### B [id number] #### [facility] [address], [place] [address] Lelia Dawn Performed By: #### P TT, PT #### [facility] [address], [place] [address] Lelia Dawn Start: 03-29-2018 alveoloplasty in con junction with extractions - four or more teeth or tooth spaces, per quadrant DIANE KISER Start: 03-29-2018 extraction, erupted tooth or exposed root (elevation and/or forceps removal) DIANE KIESR Start: 03-29-2018 removal of impacted tooth - partially bony DIANE KISER Plan of Treatment Date Care Activity Detail Author Start: 07-31-2023 [facility] Start: 07-28-2023 Referral to [employer]auf[employer] [facility] Start: 07-28-2023 Hospital admission [facility] [place] [facility] Patient Education Depression, Ad ult (ÓSCAR) Suicide Prevention [facility] Behavioral Health [place] Instructions Know your Meds [facility] Work Phone: Patient referral [facility] Work Phone: Payers Date Payer Category Payer Self-pay 2023 Unknown [id number] 2022 Medicaid [id number] 2017 Medicaid [id number] 1990 Unknown [id number] 1990 Unknown [id number] [id number] 1990 Unknown [id number] [id number] 1959 Self-pay [id number] Unknown Unknown [id number] 2.16.8 [id number] Unknown [id number] [id number] [id number] Social History Date Type Detail Facility Unknown if ever smoked [facility] Other Sex Assigned At Sex Assigned At Bir th [facility] Other Start: 07-29-2023 Tobacco smoking status NHIS Smoker (finding) [facility] Start: 1990 Sex Assigned At Male F [facility] Goals Date Patient Goal Desired Activity /State Functional Status Date Assessment Result Facility 07-31-2023 Functional status Patient at Baseline [facility] Work Phone: 07-28-2023 Functional status Disability Sta tus Patient Not at Baseline [facility] Work Phone: Mental Status Date Assessment Result Facility 07-31-2023 Cognitive function Cognitive Sta tus Patient at Baseline [facility] Work Phone: Hospital Discharge instructions 07-31-2023 Note Date & Type Note Facility 07-31-2023 Hospital Discharg e instructions Additional Instructions Important Contact Information You can call [facility] at [phone] any time day or night if you have emergent questions or question regarding discharge instructions. If at any time you are feeling an increase in your psychiatric symptoms, call your physician or behavioral healthcare provider. If any time you have thoughts of harming yourself or others contact one of the following: Call 98-8 (available 26/09) Crisis Text Line (available 26/09) text 4HOPE to [phone] [facility] Hope Line (available 8 a.m. Midnight) call [phone] ([phone]) Regular Diet No Activity Restrictions [facility] Work Phone: Progress note 07-30-2023 Note Date & Type Note Facility 07-30-2023 Progress note Note Date/Time July 30, 2023 6:35am [facility] [address] [place] [address] Psychiatry Progress Note Signed Patient: Peterson Duran MR#: [id number] : 1990 Acct:[id number] Age/Sex: 32 / M Adm Date: 4 Loc: 1S Room: [address] [place] [address] Type : ADM IN Attending Dr: Patricio [...] themain stressor. 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 He does not want to goto rehab. He likes outpatient treatment. 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 officer I need to give her a [...] signed by Patricio Hyde MD> 07/30/23 0636 [facility] Work Phone: History and physical note 07-29-2023 Note Date & Type Note Facility 07-29-2023 History and physi colton note Note Date/Time July 29, 2023 6:38pm [facility] [address] [place] [address] Psychiatry H&P Signed Patient: Peterson Duran MR#: [id number] : 1990 Acct:[id number] Age/Sex: 32 / M Adm Date: 4 Loc: Room: [address] [place] [address] Type: ADM IN Attending Dr: Patricio Hyde [...] Reportedly, patient presents to the ER in [place] with depression and suicidal ideation. Patient was [...] states he has an MRI scheduled at [facility] for a spot on his brain. [...] homicidality, reported suicidality Insight: fair Judgment: fair [facility] Medical History (Updated 07/29/23 @ 07:58 by [...] <Electronically signed by Patricio Hyde MD> 07/29/23 9813 [facility] Work Phone: Evaluation note 12-24-2022 [...] if s/s persists or worsens despite treatment. [facility] Other Evaluation note 07-14-2022 Note Date & [...] condition. July, Sore throat (ICD-10 - J02.9) [facility] Other Evaluation note Note Date & Type Note Facility Evaluation note Diagnosis Onset Date Depression with suicidal ideation [facility] Work Phone: History general Narrative - Reported Note Date & Type Note Facility History general Narrative - Reported Type Medical History Brain lesion Medical History Pulmonary embolism Medical History Drug abuse and dependence Surgical History brain surgery Surgical History tonsillectomy Hospitalization History see above [facility] Other Summary Purpose Family History No Family [...] and content) DATE CREATED AUTHOR 08/29/2017 [facility] DATE CREATED AUTHOR AUTHOR'S ORGANIZ ATION 05/06/2020 [facility] DATE CREATED AUTHOR AUTHOR'S ORGANIZ ATION 03/29/2021 [facility] DATE CREATED AUTHOR AUTHOR'S ORGANIZ ATION 03/05/2022 [facility] DATE CREATED AUTHOR AUTHOR'S ORGANIZ ATION 09/23/2023 [facility] REASON FOR VISIT (unrecogniz [...] BE BASED ON THE PRIMARY CLINICAL RECORDS. [employer] provides no warranty or guarantee of the accuracy or completeness of information in this document.
--- NOTE | 2024-02-28 09:11 | ED.EXTPRO1 ---
HPI - Extremity Problem General Chief complaint: Extremity Problem, Nontraumatic Stated complaint: LE PAIN Time Seen by Provider: 02/28/24 08:14 Source: patient Mode of arrival: walk-in History of Present Illness HPI Narrative: Patient have history of active drug use using fentanyl is coming to the ER with a bilateral upper and lower extremity fingertip burning sensation, the patient mentioned that sometimes he feels his burning sometimes even his ears He denies any continuous symptoms that the pain sometimes comes and goes Patient denies any other concern but he also had a skin lesion in the back of his left side of the neck Related Data Previous Rx's ?Medication ?Instructions ?Recorded hydroxyzine HCl 25 mg tablet 25 mg PO ONCE PRN insomnia #10 tabs 02/28/24 mupirocin 2 % topical ointment 1 applic topical TID #22 grams 02/28/24 Allergies Allergy/AdvReac Type Severity Reaction Status Date / Time vancomycin AdvReac Severe Redness of Verified 02/16/24 06:04 Skin Review of Systems ROS Status of ROS 10 or more systems reviewed and unremarkable except as noted in history and below PFSH PFS Social History Smoking status: Current every day smoker Little interest or pleasure in doing things: not at all Feeling down, depressed, or hopeless: not at all Exam Narrative Exam Narrative: Nurses notes and vital signs reviewed and patient is not hypoxic. General: Well-appearing and in no apparent distress. Skin: Warm, dry, no pallor noted. No rash. Head: Normocephalic, atraumatic. The posterior aspect of the neck the patient have a skin lesion that is measuring almost 7.5 cm it is macular and red and dry Neck: Supple, non-tender. Eye: Pupils are equal, round and EOMI. No scleral icterus. Ears, Nose, Mouth, and Throat: TM are clear, no nasal mucosal hypertrophy. Oral mucosa is moist, no posterior oropharynx erythema, uvula is mid-line Cardiovascular: Regular Rate and Rhythm without murmur, gallop or rub. Respiratory: No accessory muscle use or respiratory distress. Lungs are clear to auscultation, no wheezing, rales or rhonchi Chest Wall: no tenderness Back: No midline thoracic or lumbar vertebral tenderness. No CVA tenderness Musculoskeletal: normal ROM, no calf or popliteal tenderness, no lower extremity edema/swelling GI: Abdomen is soft, non-distended. Normal bowel sounds. No masses appreciated. No tenderness to palpation. No rebound, guarding, or rigidity noted. Neurological: A&O x4. No cranial nerve dysfunction observed. No truncal ataxia. Moves all extremities. Sensation intact. Psychiatric: Cooperative and interactive. Normal mood and affect. Constitutional Vital Signs, click to edit/add: Last Vital Signs Temp 98.5 F 02/28/24 08:05 Pulse 118 H 02/28/24 08:05 Resp 118 H 02/28/24 08:05 BP 175/95 H 02/28/24 08:05 Pulse Ox 98 02/28/24 08:05 Course Vital Signs Vital signs: Vital Signs Temperature 98.5 F 02/28/24 08:05 Pulse Rate 118 H 02/28/24 08:05 Respiratory Rate 118 H 02/28/24 08:05 Blood Pressure 175/95 H 02/28/24 08:05 Pulse Oximetry 98 02/28/24 08:05 Temperature 98.5 F 02/28/24 08:05 Pulse Rate 118 H 02/28/24 08:05 Respiratory Rate 118 H 02/28/24 08:05 Blood Pressure 175/95 H 02/28/24 08:05 Pulse Oximetry 98 02/28/24 08:05 MDM - Extremity (Nontraumatic) MDM Narrative Medical decision making narrative: The patient coming to us with nonspecific symptoms his presentation could be secondary to peripheral neuropathy specially with the examination being benign with a good anterior tibial pulse and no skin changes that was observed The only thing that the patient did mention that the skin lesion in the back of his neck also was bothering him its could be staph infection that why to be treated with Mupirocin cream The patient also mentioned having sometimes a problem with sleeping and I did explain to him that right now I will provide him with hydroxyzine and referred him to the evaluation by an outpatient as he need to have a primary care for further evaluation of his peripheral neuropathy The patient is to follow up with primary care physician in next 2-3 days or to return to the emergency department should any of the signs or symptoms worsen or new symptoms develop. The patient agrees with the following Diagnosis and Treatment plan and the patient will be discharged home. Discharge Plan Discharge Chief Complaint: Extremity Problem, Nontraumatic Clinical Impression: Peripheral neuropathy, Infection, skin, staph, Insomnia Patient Disposition: Home, Self-Care Time of Disposition Decision: :38 Condition: Good Prescriptions / Home Meds: New hydroxyzine HCl 25 mg tablet 25 mg PO ONCE PRN (Reason: insomnia) Qty: 10 0RF mupirocin 2 % ointment 1 applic topical TID Qty: 22 0RF Print Language: Senegalese Instructions: Peripheral Neuropathy (ED), Insomnia (ED) Referrals: MOI PACHECO [Primary Care Provider] - 1 week Discharge Date/Time: 02/28/24 08:47
== END 2024-02-28 08:47 | disposition home or self-care (01) ==
PROVIDERS: Emergency Provider Emergency Medicine; PCP Nurse Practitioner Family
DX: G62.9 Polyneuropathy, unspecified (principal); L08.9 Local infection of the skin and subcutaneous tissue, unspecified; B95.8 Unspecified staphylococcus as the cause of diseases classified elsewhere; G47.00 Insomnia, unspecified; F17.200 Nicotine dependence, unspecified, uncomplicated
CPT/HCPCS: 99283